=== PATIENT | male | born 1960 ===

== ENCOUNTER 2016-05-10 19:25 | Emergency (ER) | payer MEDICARE, OTHER ==
[2016-05-10 19:26] VITALS: BMI 31.2
[2016-05-10 19:35] VITALS: BP 166/97; PULSE 90; RESP 16; TEMP 97.9; O2SAT 98
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
== END 2016-05-10 19:49 | disposition home or self-care (01) ==
LOC: ED 19:25
DX: H92.02 Otalgia, left ear (principal); H93.12 Tinnitus, left ear

== ENCOUNTER 2016-07-23 22:54 | Emergency (ER) | payer MEDICARE, OTHER ==
[2016-07-23 22:55] VITALS: BMI 31.2
[2016-07-23 23:09] VITALS: BP 154/78; TEMP 99.1
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
[2016-07-24 00:02] VITALS: PULSE 105; RESP 18; O2SAT 96
== END 2016-07-23 23:58 | disposition left against medical advice (07) ==
LOC: ED 22:54
DX: R13.10 Dysphagia, unspecified (principal); Z85.818 Personal history of malignant neoplasm of other sites of lip, oral cavity, and pharynx

== ENCOUNTER 2016-08-28 14:31 | Emergency (ER) | payer MEDICARE, OTHER ==
[2016-08-28 14:32] VITALS: BMI 31.2
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
[2016-08-28] MEDS ORDERED: Magnesium Citrate Oral SOL (300 ml) PO ONE (16:37)
[2016-08-28 17:12] VITALS: PULSE 75; RESP 20; TEMP 98.1; O2SAT 99
[2016-08-28 17:28] VITALS: BP 163/91
--- NOTE | 2016-08-29 09:08 | RAD ---
HISTORY: constipation COMPARISON: 03/17/2016 abdomen two views [address] add and pelvis 01/01/2015 FINDINGS: BOWEL: Increased diffuse stool retention . No obstruction BONES: Inferior facet hypertrophic arthrosis. Transitional elements suggested thoraco lumbar and and/or lumbosacral level OTHER FINDINGS: 6 mm calcification projects over right lower renal pole. Vague opacities over the the left kidney are indeterminate obscuring stool here , noted bilateral renal urolithiasis on CT. The current 6 mm right renal calcification is faintly perceived on the 03/09/2016 study. It is more difficult to see a similar sized right renal calculus on the CT IMPRESSION: 6 mm right renal calculus lower pole - similar-appearing to 03/09/2016. Left renal urolithiasis not excluded. Confounding overlying stool retention
== END 2016-08-28 17:41 | disposition home or self-care (01) ==
LOC: ED 14:31
DX: K59.00 Constipation, unspecified (principal); I25.10 Atherosclerotic heart disease of native coronary artery without angina pectoris; I10 Essential (primary) hypertension; Z95.5 Presence of coronary angioplasty implant and graft; Z87.891 Personal history of nicotine dependence

== ENCOUNTER 2016-12-12 08:53 | Emergency (ER) | payer MEDICARE, OTHER ==
[2016-12-12 08:58] VITALS: BMI 30.2
[2016-12-12 09:16] VITALS: TEMP 98.6
[2016-12-12] MEDS ORDERED: Lidocaine 5% Patch TD STA (09:49)
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
--- NOTE | 2016-12-12 11:36 | RAD ---
PROCEDURE: Radiographs of the Lumbar Spine. HISTORY: c/o low back pain COMPARISON: Abdomen 08/28/[address] abdomen and pelvis 12/11/2016 FINDINGS: BONES: No fracture. Lumbosacral transitional elements suggested. Inferior lumbar facet hypertrophic arthrosis. No vertebral body fractures. No subluxation. . Possible incomplete closure of the most posterior inferior elements L5 Left hip arthrosis DISC SPACES: Posterior L5-S1 disc space narrowing. OTHER FINDINGS: Atherosclerotic vascular calcifications. A 4 mm calcification projects right lateral to the L2-3 disc space lateral to the lateral transverse process ease. This may represent the prior CT renal calculus- however it is smaller in size than suggested on the abdomen from 08/28/2016. CT the did show bilateral renal calculi. No definitive left renal calculi are seen on this exam. Moderate stool retention in impedes optimal evaluation. Vas deferens calcifications in the pelvis noted. IMPRESSION: No fracture or subluxation. Transitional lumbosacral elements. Inferior facet hypertrophic arthrosis Probable 4 mm right renal calculus - please note the recent CT report
[2016-12-12 11:48] VITALS: BP 163/96; PULSE 85
[2016-12-12 11:49] VITALS: RESP 19; O2SAT 99
== END 2016-12-12 11:49 | disposition home or self-care (01) ==
LOC: ED 08:53
DX: M54.5 Low back pain (principal); I10 Essential (primary) hypertension

== ENCOUNTER 2017-06-02 18:17 | Emergency (ER) | payer OTHER ==
[2017-06-02 18:18] VITALS: BMI 30.2
[2017-06-02 18:31] VITALS: TEMP 97.8
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
[2017-06-02 19:21] VITALS: PULSE 83; RESP 18; O2SAT 99
[2017-06-02 19:53] VITALS: BP 176/103
--- NOTE | 2017-06-03 08:21 | RAD ---
HISTORY: COMPARISON: 04/16/2017. TECHNIQUE: Chest PA and lateral FINDINGS: LINES AND TUBES: None. LUNG AND PLEURA: The lungs are well inflated and clear. HEART AND MEDIASTINUM: The heart is not enlarged. The hilar and mediastinal contours are within normal limits. SKELETAL STRUCTURES: The bony structures are within normal limits for the patient's age. VISUALIZED UPPER ABDOMEN: Normal. OTHER FINDINGS: No radiopaque foreign body. IMPRESSION: No active pulmonary disease.
== END 2017-06-02 20:09 | disposition home or self-care (01) ==
LOC: ED 18:17
DX: R09.89 Other specified symptoms and signs involving the circulatory and respiratory systems (principal); I10 Essential (primary) hypertension; E11.9 Type 2 diabetes mellitus without complications; Z87.891 Personal history of nicotine dependence

== ENCOUNTER 2017-07-08 11:02 | Emergency (ER) | payer OTHER ==
[2017-07-08 11:02] VITALS: BMI 30.2
== END 2017-07-08 11:25 | disposition left against medical advice (07) ==
LOC: ED 11:02
DX: Z02.89 Encounter for other administrative examinations (principal); R09.89 Other specified symptoms and signs involving the circulatory and respiratory systems

== ENCOUNTER 2017-07-18 06:21 | Emergency (ER) | payer OTHER ==
[2017-07-18 06:21] VITALS: BMI 30.2
[2017-07-18] MEDS ORDERED: Sodium Chloride 0.9% 1,000 ML IV STA (07:20)
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
[2017-07-18 08:04] LABS: BASO # 0.02 K/mm3 (0.0-2.0); BASO % 0.2 % (0.0-3.0); EOS # 0.3 (0.0-0.7); EOS % 3.1 % (1.5-5.0); GRAN # 7.49 (1.4-6.5); GRAN % 80.8 % (50.0-68.0); HEMOGLOBIN 11.1 g/dL (14.0-18.0); LYMPH # 0.8 (1.2-3.4); LYMPH % 8.6 % (22.0-35.0); MEAN CELL VOLUME 85.7 fl (80.0-105.0); MEAN CORPUSCULAR HEMOGLOBIN 29.4 pg (25.0-35.0); MEAN CORPUSCULAR HGB CONC 34.4 g/dl (31.0-37.0); MEAN PLATELET VOLUME 10.3 fl (7.0-11.0); MONO # 0.7 (0.1-0.6); MONO % 7.3 % (1.0-6.0); RBC 3.77 10^6/uL (3.5-6.1); RED CELL DISTRIBUTION WIDTH 13.4 % (11.5-14.5); WHITE BLOOD COUNT 9.3 10^3/ul (4.5-11.0)
[2017-07-18 08:05] LABS: URINE BILIRUBIN NEGATIVE (NEGATIVE); URINE BLOOD MODERATE (NEGATIVE); URINE GLUCOSE (UA) 100 mg/dL (NEGATIVE); URINE LEUKOCYTE ESTERASE NEGATIVE Leu/uL (NEGATIVE); URINE PROTEIN >=300 mg/dL (<30 mg/dL); URINE UROBILINOGEN 0.2 E.U./dL (<1 E.U./dL)
[2017-07-18 08:06] LABS: URINE APPEARANCE CLEAR (CLEAR); URINE COLOR YELLOW (YELLOW)
[2017-07-18 08:13] LABS: URINE BACTERIA MANY (NEG); URINE RBC 20 - 25 /hpf (0-2)
[2017-07-18 08:15] LABS: INR 1.16 (0.93-1.08); PARTIAL THROMBOPLASTIN TIME 31.4 Seconds (25.1-36.5); PROTHROMBIN TIME 13.4 SECONDS (9.4-12.5)
--- NOTE | 2017-07-18 08:33 | RAD ---
HISTORY: leg pain COMPARISON: 06/02/2017 FINDINGS: LUNGS: No active pulmonary disease. PLEURA: No significant pleural effusion identified, no pneumothorax apparent. CARDIOVASCULAR: Normal. OSSEOUS STRUCTURES: No significant abnormalities. VISUALIZED UPPER ABDOMEN: Normal. OTHER FINDINGS: None. IMPRESSION: No active disease.
[2017-07-18 08:45] LABS: CALCIUM 8.1 mg/dL (8.4-10.5)
[2017-07-18 09:00] LABS: CK MB% 3.2 % (2.5-3.0); CK-MB 7.6 ng/mL (0.0-3.6)
[2017-07-18 10:02] VITALS: RESP 18
[2017-07-18] MEDS ORDERED: Heparin25000 units/250ml 1/2NS 25,000 UNITS/250 ML BAG IV PRN (11:22)
[2017-07-18 12:04] VITALS: BP 144/89; PULSE 76; TEMP 98; O2SAT 97
--- NOTE | 2017-07-18 14:30 | US ---
HISTORY: Leg pain and swelling. Evaluate for DVT PHYSICIAN(S): Jaime Verma MD. TECHNIQUE: Duplex sonography and color-flow Doppler with graded compression were used to evaluate the deep venous systems of both lower extremities. FINDINGS: There is subacute partially recannulized thrombus noted in the right popliteal vein and visualized right tibial veins. The right femoral vein and right common femoral vein are patent and compressible. There is no sonographic evidence of deep venous thrombosis the visualized segments of left lower extremity. IMPRESSION: Subacute thrombus in the right popliteal and tibial veins.
--- NOTE | 2017-07-18 23:42 | CARD ---
APPROVED REPORT EKG Measurement Heart [id number] <Conclusion> Normal sinus rhythm Right bundle branch block Inferior infarct, age undetermined Abnormal ECG
== END 2017-07-18 12:04 | disposition home or self-care (01) ==
LOC: ED 06:21
DX: I82.431 Acute embolism and thrombosis of right popliteal vein (principal); I82.441 Acute embolism and thrombosis of right tibial vein; I10 Essential (primary) hypertension; E11.9 Type 2 diabetes mellitus without complications; Z87.891 Personal history of nicotine dependence
CPT/HCPCS: 71045; 80053; 81001; 82550; 82553; 83880; 85025; 85610; 85651; 85730; 86140; 87040; 87086; 93005; 93970; 96361; 96374; 99285; J1885; J7030

== ENCOUNTER 2017-08-07 08:18 | Emergency (ER) | payer MEDICARE ==
[2017-08-07 08:23] VITALS: BMI 30.7
[2017-08-07 08:34] VITALS: RESP 18; TEMP 98.2
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
[2017-08-07] MEDS ORDERED: Nitroglycerin 2% Ointment Foilpak UD TOP STA (08:41)
[2017-08-07 08:53] LABS: BASO # 0.04 K/mm3 (0.0-2.0); BASO % 0.4 % (0.0-3.0); EOS # 0.6 (0.0-0.7); EOS % 5.6 % (1.5-5.0); GRAN # 7.05 (1.4-6.5); GRAN % 71.8 % (50.0-68.0); HEMOGLOBIN 11.3 g/dL (14.0-18.0); LYMPH # 1.5 (1.2-3.4); LYMPH % 15.6 % (22.0-35.0); MEAN CELL VOLUME 85.3 fl (80.0-105.0); MONO # 0.7 (0.1-0.6); MONO % 6.6 % (1.0-6.0); RBC 3.89 10^6/uL (3.5-6.1); RED CELL DISTRIBUTION WIDTH 14.2 % (11.5-14.5); WHITE BLOOD COUNT 9.8 10^3/ul (4.5-11.0)
[2017-08-07 09:09] LABS: ALB/GLOB RATIO 1.1 (1.1-1.8); ALBUMIN 3.5 g/dL (3.0-4.8); CALCIUM 8.7 mg/dL (8.4-10.5); INR 1.92 (0.93-1.08); PROTHROMBIN TIME 22.4 SECONDS (9.4-12.5)
[2017-08-07 09:15] LABS: TROPONIN I 0.05 ng/mL
--- NOTE | 2017-08-07 09:40 | CT ---
PROCEDURE: CT HEAD WITHOUT CONTRAST. HISTORY: right facial droop x 2.5-3days COMPARISON: None available. TECHNIQUE: Axial computed tomography images were obtained through the head/brain without intravenous contrast. Radiation dose: Total exam DLP = mGy-cm. This CT exam was performed using one or more of the following dose reduction techniques: Automated exposure control, adjustment of the mA and/or kV according to patient size, and/or use of iterative reconstruction technique. FINDINGS: HEMORRHAGE: No intracranial hemorrhage. BRAIN: No mass effect or edema. Right frontal encephalomalacia. Right periventricular white matter and basal ganglia chronic ischemic changes. VENTRICLES: Unremarkable. No hydrocephalus. CALVARIUM: Unremarkable. PARANASAL SINUSES: Unremarkable as visualized. No significant inflammatory changes. MASTOID AIR CELLS: Unremarkable as visualized. No inflammatory changes. OTHER FINDINGS: None. IMPRESSION: No intracranial hemorrhage.
--- NOTE | 2017-08-07 10:11 | RAD ---
HISTORY: right facial droop x 2.5-3 days COMPARISON: 07/29/2017 FINDINGS: LUNGS: No active pulmonary disease. PLEURA: No significant pleural effusion identified, no pneumothorax apparent. CARDIOVASCULAR: Normal. OSSEOUS STRUCTURES: No significant abnormalities. VISUALIZED UPPER ABDOMEN: Normal. OTHER FINDINGS: None. IMPRESSION: No active disease.
--- NOTE | 2017-08-07 10:19 | US ---
HISTORY: Leg pain and swelling. Evaluate for DVT PHYSICIAN(S): Jaime Verma MD. TECHNIQUE: Duplex sonography and color-flow Doppler with graded compression were used to evaluate the deep venous systems of both lower extremities. FINDINGS: The visualized deep venous systems of both lower extremities are sonographically normal and compressible. Normal wave forms and augmentation are seen. There is no sonographic evidence for deep venous thrombosis in the visualized segments of both lower extremities. IMPRESSION: No sonographic evidence for deep venous thrombosis in the visualized segments of both lower extremities.
[2017-08-07 11:24] VITALS: BP 152/88; PULSE 77; O2SAT 98
--- NOTE | 2017-08-07 12:34 | CARD ---
APPROVED REPORT EKG Measurement Heart [id number] <Conclusion> Normal sinus rhythm Right bundle branch block Inferior infarct Age Old?
== END 2017-08-07 11:23 | disposition home or self-care (01) ==
LOC: ED 08:18
DX: G51.0 Bell's palsy (principal); I10 Essential (primary) hypertension; E11.9 Type 2 diabetes mellitus without complications; Z87.891 Personal history of nicotine dependence; Z91.81 History of falling

== ENCOUNTER 2017-08-22 13:11 | Inpatient (IN) | payer MEDICAID, MEDICARE, OTHER ==
[2017-08-22 13:12] VITALS: BMI 30.7
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
--- NOTE | 2017-08-22 14:52 | RAD ---
HISTORY: leukocytosis COMPARISON: 08/07/2017. FINDINGS: LUNGS: The lungs are well inflated and clear. PLEURA: No significant pleural effusion identified, no pneumothorax apparent. CARDIOVASCULAR: Normal. OSSEOUS STRUCTURES: No significant abnormalities. VISUALIZED UPPER ABDOMEN: Normal. OTHER FINDINGS: None. IMPRESSION: No active pulmonary disease.
[2017-08-22 15:46] LABS: VENOUS BLOOD GAS PO2 88 mm/Hg (30-55); VENOUS BLOOD PH 7.29 (7.32-7.43)
[2017-08-22 15:48] LABS: GRAN # 18.32 (1.4-6.5); GRAN % 90.4 % (50.0-68.0); HEMOGLOBIN 10.6 g/dL (14.0-18.0); LYMPH # 1.4 (1.2-3.4); LYMPH % 6.8 % (22.0-35.0); MEAN CELL VOLUME 84.1 fl (80.0-105.0); MEAN CORPUSCULAR HEMOGLOBIN 29.5 pg (25.0-35.0); MEAN CORPUSCULAR HGB CONC 35.1 g/dl (31.0-37.0); MONO # 0.6 (0.1-0.6); MONO % 2.8 % (1.0-6.0); PLATELET COUNT 236 10^3/uL (120.0-450.0); RBC 3.59 10^6/uL (3.5-6.1); RED CELL DISTRIBUTION WIDTH 15.4 % (11.5-14.5); WHITE BLOOD COUNT 20.3 10^3/ul (4.5-11.0)
[2017-08-22 15:54] LABS: URINE BILIRUBIN NEGATIVE (NEGATIVE); URINE BLOOD MODERATE (NEGATIVE); URINE GLUCOSE (UA) >=1000 mg/dL (NEGATIVE); URINE LEUKOCYTE ESTERASE NEGATIVE Leu/uL (NEGATIVE); URINE PROTEIN >=300 mg/dL (<30 mg/dL); URINE UROBILINOGEN 0.2 E.U./dL (<1 E.U./dL)
[2017-08-22 15:55] LABS: URINE APPEARANCE TURBID (CLEAR); URINE COLOR YELLOW (YELLOW)
[2017-08-22 15:59] LABS: URINE RBC 0 - 2 /hpf (0-2)
[2017-08-22 16:00] LABS: URINE BACTERIA TRACE (NEG); URINE HYALINE CAST 0 - 2 /hpf
[2017-08-22 16:01] LABS: INR 1.29 (0.93-1.08); PARTIAL THROMBOPLASTIN TIME 30.7 Seconds (25.1-36.5); PROTHROMBIN TIME 14.8 SECONDS (9.4-12.5)
[2017-08-22 16:05] LABS: ALB/GLOB RATIO 1.1 (1.1-1.8); ALBUMIN 2.8 g/dL (3.0-4.8); CALCIUM 8.6 mg/dL (8.4-10.5)
[2017-08-22 16:16] LABS: LYMPHOCYTE 3 % (22.0-35.0); MONOCYTE 5 % (1.0-6.0); NEUTROPHIL 92 % (50.0-70.0)
[2017-08-22 16:17] LABS: PLATELET ESTIMATE NORMAL (NORMAL)
[2017-08-22] MEDS ORDERED: Insulin Lispro 1 UNITS/0.01 ML SC STA (16:53)
[2017-08-22] MEDS ORDERED: Sodium Chloride 0.9% 1,000 ML IV SCH (20:00)
[2017-08-22] MEDS ORDERED: Dextrose 50% SYRINGE Inj (50 ml) IVP ONE (20:28)
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
[2017-08-22] MEDS ORDERED: Pneumococcal 23-Valent Vaccine IM ONE (22:48)
[2017-08-22] MEDS: Insulin Reg-MEDIUM-Coverage SC SCH (23:38)
[2017-08-22] MEDS: Piperacillin/Tazobact 2.25gm 2.25 GM/100 ML BAG IVPB SCH (23:54)
[2017-08-23] MEDS ORDERED: Piperacillin/Tazobact 3.375 gm 100 ML IVPB SCH
[2017-08-23] MEDS: Piperacillin/Tazobact 2.25gm 2.25 GM/100 ML BAG IVPB SCH ×4 (05:21→23:53)
[2017-08-23] MEDS: Pantoprazole 40 mg EC Tab PO SCH (05:22)
[2017-08-23 05:47] LABS: ARTERIAL BLOOD GAS HCO3 18.8 mmol/L (21-28); ARTERIAL BLOOD GAS HEMOGLOBIN 10.4 g/dL (11.7-17.4); ARTERIAL BLOOD GAS O2 CAPACITY 14.3 mL/dl (16-24); ARTERIAL BLOOD GAS O2 CONTENT 14.1 ML/dl (15-23); ARTERIAL BLOOD GAS O2 SAT 98.7 % (95-98); ARTERIAL BLOOD GAS PCO2 31 mm/Hg (35-45); ARTERIAL BLOOD GAS PH 7.39 (7.35-7.45); ARTERIAL BLOOD GAS TCO2 19.8 mmol.L (22-28)
[2017-08-23 06:34] LABS: EOS # 0.1 (0.0-0.7); EOS % 0.6 % (1.5-5.0); GRAN # 14.4 (1.4-6.5); GRAN % 86.2 % (50.0-68.0); HEMOGLOBIN 10.3 g/dL (14.0-18.0); LYMPH # 1.1 (1.2-3.4); LYMPH % 6.8 % (22.0-35.0); MEAN CELL VOLUME 84.2 fl (80.0-105.0); MEAN CORPUSCULAR HEMOGLOBIN 28.5 pg (25.0-35.0); MEAN CORPUSCULAR HGB CONC 33.9 g/dl (31.0-37.0); MEAN PLATELET VOLUME 10.5 fl (7.0-11.0); MONO # 1.1 (0.1-0.6); MONO % 6.4 % (1.0-6.0); RBC 3.61 10^6/uL (3.5-6.1); RED CELL DISTRIBUTION WIDTH 15.7 % (11.5-14.5); WHITE BLOOD COUNT 16.7 10^3/ul (4.5-11.0)
[2017-08-23 06:38] LABS: IRON 16 ug/dL (45-180)
[2017-08-23 06:40] LABS: ALBUMIN 2.5 g/dL (3.0-4.8); CALCIUM 8.5 mg/dL (8.4-10.5)
[2017-08-23 06:48] LABS: % IRON SATURATION 9 % (20-55); TOTAL IRON BINDING CAPACITY 170 ug/dL (261-462)
[2017-08-23] MEDS ORDERED: Barium Sulfate Susp 2.1% w/v, 2.0% w/w 450 mL Bottle PO ONE (06:58)
--- NOTE | 2017-08-23 09:03 | CARD ---
APPROVED REPORT EKG Measurement Heart [id number] [place] [id number] <Conclusion> Normal sinus rhythm Right bundle branch block Voltage criteria for left ventricular hypertrophy Inferior infarct, age undetermined No change
[2017-08-23] MEDS: Insulin Reg-MEDIUM-Coverage SC SCH ×4 (09:19→22:16)
--- NOTE | 2017-08-23 09:24 | CT ---
PROCEDURE: CT MAXILLOFACIAL BONES WITHOUT CONTRAST HISTORY: Hx of nasopharyngeal CA COMPARISON: None TECHNIQUE: Contiguous axial CT images of the maxillofacial bones were obtained. Coronal and sagittal reformats were generated. Radiation dose: Total exam DLP = 745.23 mGy-cm. This CT exam was performed using one or more of the following dose reduction techniques: Automated exposure control, adjustment of the mA and/or kV according to patient size, and/or use of iterative reconstruction technique. FINDINGS: NASAL BONES: Unremarkable. ORBITS: Probable old right lamina papyracea fracture. No evidence of acute fracture. Orbital floor intact bilaterally. No orbital mass or hemorrhage. The globes are rounded and symmetric. PARANASAL SINUSES/ MASTOIDS: Chronic left maxillary sinus. Right maxillary retention cyst/polyp. Chronic sphenoid sinusitis. MAXILLA: Unremarkable. MANDIBLE/ TEMPOROMANDIBULAR JOINTS: Unremarkable. SKULL BASE: Unremarkable. TEMPORAL BONES: Middle ears and mastoid grossly unremarkable. OTHER FINDINGS: Asymmetric soft tissue in the left fossa of Rosenmuller suspicious for nasopharyngeal malignancy. IMPRESSION: Asymmetric soft tissue in left fossa of Rosenmuller suspicious for nasopharyngeal malignancy. Old right lamina papyracea fracture. Right maxillary retention cyst/polyp. Chronic maxillary and sphenoid sinusitis. Preliminary interpretation of this examination was reported by [facility] at 7:50 p.m. on 08/22/2017.. There is discordance of this report with the preliminary interpretation. Asymmetric soft tissue in left fossa of Rosenmuller not described in the preliminary report of this examination.
[2017-08-23] MEDS ORDERED: Vancomycin 1gm in NS 250ml 1 GM/250 ML BAG IVPB SCH (10:00)
--- NOTE | 2017-08-23 11:24 | CT ---
PROCEDURE: CT Abdomen and Pelvis without intravenous contrast HISTORY: wbc 20k COMPARISON: None. TECHNIQUE: Technique. Contrast dose: Radiation dose: Total exam DLP = mGy-cm. This CT exam was performed using one or more of the following dose reduction techniques: Automated exposure control, adjustment of the mA and/or kV according to patient size, and/or use of iterative reconstruction technique. FINDINGS: LOWER THORAX: Small pericardial effusion. LIVER: Unremarkable. No gross lesion or ductal dilatation. GALLBLADDER AND BILE DUCTS: Unremarkable. PANCREAS: Peripancreatic fat infiltration along the head consistent with mild acute pancreatitis. SPLEEN: Unremarkable. ADRENALS: Unremarkable. No mass. KIDNEYS AND URETERS: Tiny bilateral nonobstructive renal calculi. VASCULATURE: Unremarkable. No aortic aneurysm. BOWEL: Mild colonic diverticulosis. No obstruction. No gross mural thickening. APPENDIX: Unremarkable. Normal appendix. PERITONEUM: Unremarkable. No free fluid. No free air. LYMPH NODES: Unremarkable. No enlarged lymph nodes. BLADDER: Unremarkable. REPRODUCTIVE: Unremarkable. BONES: No acute fracture. OTHER FINDINGS: None. IMPRESSION: Peripancreatic fat infiltration along the head consistent with mild acute pancreatitis.
[2017-08-23 11:46] LABS: CK MB% 3.8 % (2.5-3.0); CK-MB 11.1 ng/mL (0.0-3.6)
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
--- NOTE | 2017-08-23 16:32 | CP.PCM.PN ---
<John Moore - Last Filed: 08/23/17 17:49> Subjective - Date & Time of Evaluation Date of Evaluation: 08/23/17 Time of Evaluation: 07:10 - Subjective Subjective: John Moore D.O. 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 Patient was seen and examined this morning at bedside. Patient is doing marginally better and is complaining that he really wants to eat something. No major overnight events. Objective - Vital Signs/Intake and Output Vital Signs (last 24 hours): Temp Pulse Resp BP Pulse Ox 98.2 F 90 20 133/73 97 08/23/17 08:32 08/23/17 08:32 08/23/17 08:32 08/23/17 08:32 08/23/17 08:32 Intake and Output: 08/23/17 08/23/17 06:59 18:59 Intake Total 0 Balance 0 - Medications Medications: Current Medications Atorvastatin Calcium (Lipitor) 10 mg PO DIN [facility] Escitalopram Oxalate (Lexapro) 20 mg PO DAILY [facility] Last Admin: 08/23/17 09:21 Dose: Not Given Ferrous Gluconate (Fergon) 324 mg PO TID [facility] Hydralazine HCl (Apresoline) 10 mg IVP Q6 PRN PRN Reason: Systolic Blood Pressure Last Admin: 08/22/17 20:46 Dose: 10 mg Hydralazine HCl (Apresoline) 50 mg PO BID [facility] Piperacillin Sod/Tazobactam Sod (Zosyn 2.25 Gm In 0.9% 100 Ml) 2.25 gm in 100 mls @ 100 mls/hr IVPB Q6 [facility] PRN Reason: Protocol Stop: 09/01/17 00:01 Last Admin: 08/23/17 12:11 Dose: 100 mls/hr Insulin Human Regular (Humulin R Med) 0 units SC ACHS [facility] PRN Reason: Protocol Last Admin: 08/23/17 11:40 Dose: Not Given Loratadine (Claritin) 10 mg PO DAILY [facility] Last Admin: 08/23/17 09:20 Dose: Not Given Pantoprazole Sodium (Protonix Ec Tab) 40 mg PO 0600 [facility] Last Admin: 08/23/17 05:22 Dose: Not Given Vitamin B Complex/Vit C/Folic Acid (Nephro-Nicko) 1 tab PO 0800 [facility] - Labs Labs: 08/23/17 06:00 08/23/17 06:00 PT 14.8 SECONDS (9.4-12.5) H 08/22/17 15:00 INR 1.29 (0.93-1.08) H 08/22/17 15:00 APTT 30.7 Seconds (25.1-36.5) 08/22/17 15:00 - Constitutional Appears: gentleman, well, No Acute Distress - Head Exam Head Exam: NORMOCEPHALIC, previous craniotomy scars appreciated, well healed - Eye Exam Eye Exam: EOMI, PERRL. absent: Scleral icterus - ENT Exam ENT Exam: Mucous Membranes Moist Additional comments: Lesion on are of L nostril with some crusted blood, some erythema over nares, oral thrush - Neck Exam Neck exam: Negative for: Tenderness - Respiratory Exam Respiratory Exam: Clear to Auscultation Bilateral. absent: Rhonchi, Wheezes - Cardiovascular Exam Cardiovascular Exam: RRR, +S1, +S2. absent: Systolic Murmur - GI/Abdominal Exam GI & Abdominal Exam: Normal Bowel Sounds, Soft. absent: Tenderness - Extremities Exam Extremities exam: Positive for: normal inspection, pedal pulses present. 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 Plan: Leukocytosis w/ L Shift Pt. noted to have leukocytosis in outpt heme onc office PNA: Procal 0.78; CXR negative UTI: UA negative for pyuria/ bacteruria; UCX negative after 24 hours Blood Cx 2/2 negative after [address] hours. LE Duplex negative CT Maxofacial - chronic sinusitis Continue empiric zosyn ID following; reccs appreciated Uncontrolled DM Suspect likely 2/2 prednisone use Holding home prednisone taper ISS Medium dose A1C 8.9 Normocytic Anemia - Iron deficiency Suspect Anemia of chronic disease vs. Chronic Kidney Disease Pt. 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 Pt is to follow up w/ PMD Dr. Rebolledo and Heme Onc Dr. Corona once discharged. Case was seen and discussed w/ attending Dr. Alfredo. John Moore DO - PGY1 IM RESIDENT - PAG[facility] [phone] <Dilan Alfredo - Last Filed: 08/24/17 08:21> Objective - Vital Signs/Intake and Output Vital Signs (last 24 hours): Temp Pulse Resp BP Pulse Ox 97.7 F 82 20 183/96 H 99 08/24/17 06:00 08/24/17 06:00 08/24/17 06:00 08/24/17 06:00 08/24/17 06:00 Intake and Output: 08/24/17 08/24/17 06:59 18:59 Intake Total 0 Balance 0 - Medications Medications: Current Medications Atorvastatin Calcium (Lipitor) 10 mg PO DIN [facility] Last Admin: 08/23/17 17:21 Dose: 10 mg Escitalopram Oxalate (Lexapro) 20 mg PO DAILY [facility] Last Admin: 08/23/17 09:21 Dose: Not Given Ferrous Gluconate (Fergon) 324 mg PO TID [facility] Last Admin: 08/23/17 17:22 Dose: 324 mg Hydralazine HCl (Apresoline) 10 mg IVP Q6 PRN PRN Reason: Systolic Blood Pressure Last Admin: 08/24/17 05:58 Dose: 10 mg Hydralazine HCl (Apresoline) 50 mg PO BID [facility] Last Admin: 08/23/17 17:20 Dose: 50 mg Piperacillin Sod/Tazobactam Sod (Zosyn 2.25 Gm In 0.9% 100 Ml) 2.25 gm in 100 mls @ 100 mls/hr IVPB Q6 [facility] PRN Reason: Protocol Stop: 09/01/17 00:01 Last Admin: 08/24/17 05:55 Dose: 100 mls/hr Insulin Human Regular (Humulin R Med) 0 units SC ACHS [facility] PRN Reason: Protocol Last Admin: 08/24/17 08:04 Dose: Not Given Loratadine (Claritin) 10 mg PO DAILY [facility] Last Admin: 08/23/17 09:20 Dose: Not Given Pantoprazole Sodium (Protonix Ec Tab) 40 mg PO 0600 [facility] Last Admin: 08/24/17 05:56 Dose: 40 mg Vitamin B Complex/Vit C/Folic Acid (Nephro-Nicko) 1 tab PO 0800 [facility] - Labs Labs: 08/23/17 06:00 08/23/17 06:00 PT 14.8 SECONDS (9.4-12.5) H 08/22/17 15:00 INR 1.29 (0.93-1.08) H 08/22/17 15:00 APTT 30.7 Seconds (25.1-36.5) 08/22/17 15:00 Attending/Attestation - Attestation I have personally seen and examined this patient.: Yes I have fully participated in the care of the patient.: Yes I have reviewed all pertinent clinical information, including history, physical exam and plan: Yes Notes (Text): 08/23/17 57 year old male with past medical history of nasopharyngeal cancer s/p radiation, hypertension, CAD s/p stents, DVT, diabetes, CKD and recently diagnosed Chowdhury's palsy who presented after being referred by his oncologist for leukocytosis and hyperglycemia. Of note patient was recently started on prednisone and valcyclovir for Chowdhury's palsy. In ER patient has leukocytosis ( 20.3), hyperglycemia and acute on chronic renal failure. On exam he does appear to have mild erythema on his face which has improved today. CT maxofacial showed chronic sinusitis. Continue with iv antibiotics as per ID. CT abd/pelvis showed mild acute pancreatitis however patient denies any abdominal pain. Continue with diet as tolerated. LE dopplers were negative. Will need to discuss her patient's oncologist regarding anticoagulation. Nephrology evaluation was appreciated. Continue to hold lasix, januvia and lisinopril for now. Continue with insulin ss. PT evaluation was appreciated; recommended home with services. Family is at bedside and questions were answered. Dilan Alfredo MD Hospitalist.
[2017-08-23 17:10] LABS: COMPLEMENT C4 22.6 mg/dL (14.0-44.0)
[2017-08-24] MEDS: Piperacillin/Tazobact 2.25gm 2.25 GM/100 ML BAG IVPB SCH (05:55)
[2017-08-24] MEDS: Pantoprazole 40 mg EC Tab PO SCH (05:56)
--- NOTE | 2017-08-24 07:37 | CON ---
DATE: 08/23/2017 LOCATION: The patient is in bed, seen earlier this morning in room 370, bed 1. CHIEF COMPLAINT: Weakness and actually elevated white blood cell count times several days. HISTORY OF PRESENT ILLNESS: This is a 57-year-old male with a history of diabetes, coronary artery disease, depression, hypertension, hyperlipidemia, nasopharyngeal cancer, has had chemotherapy and radiation, history of anxiety, and was admitted with leukocytosis and hyperglycemia. REVIEW OF SYSTEMS: Reveals the patient denies any fevers, any chills, any nausea, vomiting, chest pain, abdominal pain or diarrhea. PAST MEDICAL HISTORY: Significant for diabetes mellitus, coronary artery disease, depression, hypertension, hyperlipidemia, nasopharyngeal cancer and anxiety. PAST SURGICAL HISTORY: Significant for cardiac stents. ALLERGIES: THE PATIENT HAS NO KNOWN ALLERGIES. MEDICATIONS AT HOME: Include prednisone, meloxicam, lisinopril, glimepiride, furosemide. PHYSICAL EXAMINATION: GENERAL: The patient is in bed, in no acute distress, answering questions appropriately. VITAL SIGNS: Temperature of 98, blood pressure is 167/90, respiratory rate of 20, and a heart rate of 92. HEENT: Unremarkable. NECK: Supple. LUNGS: Have decreased breath sounds. HEART: Normal S1 and S2. ABDOMEN: Soft, nontender. No rebound or guarding. No masses. LABORATORY DATA: Reveals a white count of 16,700, hemoglobin of 10, platelets of 236, 92% neutrophils. Coagulation is noted. Chemistries reveals a BUN of 64, creatinine of 2. Procalcitonin is 0.78. Urinalysis is noted. Immunology is noted. Microbiology, blood cultures, no growth. Urine cultures, no growth. The patient had a CAT scan of the abdomen and pelvis, which shows mild acute pancreatitis. Chest x-ray, negative. Urinalysis is negative. ASSESSMENT AND PLAN: This is a 57-year-old male with diabetes and coronary artery disease, depression, hypertension, hyperlipidemia, nasopharyngeal cancer status post chemotherapy and radiation, anxiety with leukocytosis, and systemic inflammatory response syndrome. The patient's leukocytosis maybe secondary to 20 mg of prednisone daily the patient has been on. The patient does have hyperglycemia with a negative CAT scan of the abdomen, negative chest x-ray, negative urinalysis, negative urine culture and negative blood cultures, and procalcitonin is 0.78. We will follow white blood cell count. We will make further recommendations. Jr Gagnon MD
[2017-08-24] MEDS: Insulin Reg-MEDIUM-Coverage SC SCH ×4 (08:04→21:59)
[2017-08-24] MEDS: Multivitamin Vitamin B Complex (Nephro-Vite) Tab PO SCH (09:40)
[2017-08-24 10:03] LABS: EOS # 0.3 (0.0-0.7); GRAN # 11.29 (1.4-6.5); GRAN % 86.4 % (50.0-68.0); HEMOGLOBIN 10.9 g/dL (14.0-18.0); LYMPH % 7.4 % (22.0-35.0); MEAN CELL VOLUME 85.4 fl (80.0-105.0); MEAN CORPUSCULAR HEMOGLOBIN 28.9 pg (25.0-35.0); MEAN CORPUSCULAR HGB CONC 33.9 g/dl (31.0-37.0); MONO # 0.6 (0.1-0.6); MONO % 4.2 % (1.0-6.0); RBC 3.77 10^6/uL (3.5-6.1); RED CELL DISTRIBUTION WIDTH 16.3 % (11.5-14.5); WHITE BLOOD COUNT 13.1 10^3/ul (4.5-11.0)
[2017-08-24 10:04] LABS: ALB/GLOB RATIO 1.1 (1.1-1.8); ALBUMIN 2.8 g/dL (3.0-4.8); ALT/SGPT 47 U/L (7-56); AST/SGOT 34 U/L (17-59); BLOOD UREA NITROGEN 60 mg/dL (7-21); CALCIUM 8.4 mg/dL (8.4-10.5); GFR AFRICAN-AMERICAN 40; GFR NON-AFRICAN AMERICAN 33
--- NOTE | 2017-08-24 10:38 | CP.PCM.PN ---
Subjective - Date & Time of Evaluation Date of Evaluation: 08/24/17 Time of Evaluation: 10:37 - Subjective Subjective: Nephrology Consultation Note (covering for Dr Stacy Moore): Assessment: Stable Acute Kidney Injury (N17.9) likely hemodynamic due to hyperglycemia, probably also contributed by meds such as nsaids + diuretics + acei microscopic hematuria Diabetic chronic Kidney Disease (E11.22) Hypertensive Chronic Kidney Disease (I12.9) Chronic Kidney Disease (N18.3) Stage 3 with 3+ ( ? 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 Hypertension control with meds as ordered. resume lisinopil and added norvasc Monitor Input/Output, daily weights and renal function with basic metabolic panel d/c IVF as pt with elevated BP and edema started iron and MVI supplements Check urine analysis, spot protein/creatinine and albumin/creatinine ratio, CPK , uric acid. Check for 25-OH vitamin D, iPTH, phosphorus level Check GN work up as C3, C4, BLAIRE, Anti dsDNA, ANCA (MPO and [place]-3), serum protein electrophoresis with immunofixation and serum FLC assay, HIV/Hep B and Hep C serology Dose meds/antibiotics for reduced GFR. Avoid fleets enema/magnesium based laxatives. Avoid nephrotoxins/NSAIDs/ iodinated contrast (unless needed emergently) Glycemic control Further work up/management as per primary team Thanks for allowing me to participate in care of your patient. Will follow patient with you. Please call if any Qs. 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 pt also had a fall few days ago. he feels cold at this time. denies CP/SOB Denies OTC/herbal meds or NSAIDs but home meds list include Meloxicam No known recent iodinated contrast exposure. No obvious episodes of low BP. ROS: Cardiovascular: No chest pain. Pulmonary: No shortness of breath Gastrointestinal: denies abdominal pain No nausea. No vomiting. Genitourinary: No pain while urinating. Denies blood in urine. All other negative Physical Examination: General Appearance: Comfortable, in no acute respiratory distress, co-operative . ill appearing Vitals reviewed and noted as below Head; Atraumatic, normocephalic. Rt scalp old surgical scar + ENT: no thrush. Tongue is midline. Oropharynx: no rash or ulcers. left nostril ulcer + EYES: Pupils are equal, round and reactive to light accommodation. Eye muscles and extraocular movement intact. Sclera is anicteric. Neck; supple no lymphadenopathy, no thyromegaly or bruit Lungs: Normal respiratory rate/effort. Breath sounds bilateral equal and clear Heart: Normal rate. s1s2 normal. No rub or gallop. Extremities: 1-2+ edema. No varicose veins Neurological: Patient is alert, awake and oriented to person, place and time. left bells palsy +. Strength bilateral appropriate and equal Skin: Warm and dry. Normal turgor. No rash. Palpitation: Normal elasticity for age Abdomen: Abdomen is soft. Bowel sounds +. There is no abdominal tenderness, no guarding/rigidity no organomegaly Psych: limited insight and normal affect/mood MSK: no joint tenderness or swelling. Digits and nails normal, no deformity : kidney or bladder not palpable Labs/imaging reviewed. Past medical history, past surgical history, family history, social history, allergy reviewed and noted as below Family hx: no hx of CKD. Rest non-contributory work up: UA: 3+ protein moderate blood TSAT 9% ferritin 303 renal imaging: b/l non obstructing calculi Objective - Vital Signs/Intake and Output Vital Signs (last 24 hours): Temp Pulse Resp BP Pulse Ox 97.7 F 82 20 183/96 H 99 08/24/17 06:00 08/24/17 06:00 08/24/17 06:00 08/24/17 06:00 08/24/17 06:00 Intake and Output: 08/24/17 08/24/17 06:59 18:59 Intake Total 0 Balance 0 - Medications Medications: Current Medications Amlodipine Besylate (Norvasc) 5 mg PO DAILY [facility] Last Admin: 08/24/17 09:43 Dose: 5 mg Atorvastatin Calcium (Lipitor) 10 mg PO DIN [facility] Last Admin: 08/23/17 17:21 Dose: 10 mg Escitalopram Oxalate (Lexapro) 20 mg PO DAILY [facility] Last Admin: 08/24/17 09:40 Dose: 20 mg Ferrous Gluconate (Fergon) 324 mg PO TID [facility] Last Admin: 08/24/17 09:41 Dose: 324 mg Hydralazine HCl (Apresoline) 10 mg IVP Q6 PRN PRN Reason: Systolic Blood Pressure Last Admin: 08/24/17 05:58 Dose: 10 mg Hydralazine HCl (Apresoline) 50 mg PO BID [facility] Last Admin: 08/24/17 09:41 Dose: 50 mg Insulin Human Regular (Humulin R Med) 0 units SC [facility] PRN Reason: Protocol Last Admin: 08/24/17 08:04 Dose: Not Given Lisinopril (Zestril) 20 mg PO DAILY [facility] Last Admin: 08/24/17 09:43 Dose: 20 mg Loratadine (Claritin) 10 mg PO DAILY [facility] Last Admin: 08/24/17 09:41 Dose: 10 mg Pantoprazole Sodium (Protonix Ec Tab) 40 mg PO 0600 [facility] Last Admin: 08/24/17 05:56 Dose: 40 mg Vitamin B Complex/Vit C/Folic Acid (Nephro-Nicko) 1 tab PO 0800 [facility] Last Admin: 08/24/17 09:40 Dose: 1 tab - Labs Labs: 08/24/17 09:30 08/24/17 09:30 PT 14.8 SECONDS (9.4-12.5) H 08/22/17 15:00 INR 1.29 (0.93-1.08) H 08/22/17 15:00 APTT 30.7 Seconds (25.1-36.5) 08/22/17 15:00
--- NOTE | 2017-08-24 11:06 | PN ---
DATE: 08/24/2017 SUBJECTIVE: The patient is in bed, in no acute distress, nontoxic, seen earlier. PHYSICAL EXAMINATION: VITAL SIGNS: On exam, temperature is 97 and blood pressure is 180/90, respiratory rate of 20, heart rate of 96. HEENT: Examination of HEENT is unremarkable. NECK: Supple. LUNGS: Have decreased breath sounds. HEART: Normal S1, S2. ABDOMEN: Soft, nontender. LABORATORY DATA: Laboratory examination reveals the white count is down to 16,700, hemoglobin of 10 and coagulation is noted and chemistries revealed the patient has a BUN of 64, creatinine of 2. CK is elevated. Procalcitonin is 0.78. Blood sugar is elevated. Hemoglobin A1c is 8.9. Urinalysis is noted. HIV is negative. Microbiology reveals blood cultures are negative. Urine cultures are negative. The patient had a CAT scan of the abdomen and pelvis. Peripancreatic fat infiltration consistent with a mild acute pancreatitis. No other findings. ASSESSMENT AND PLAN: A 57-year-old male, who was admitted with diabetes and coronary artery disease, depression, hypertension, hyperlipidemia, nasopharyngeal cancer, status post chemotherapy and radiation and anxiety. Had systemic inflammatory response syndrome, leukocytosis, maybe secondary to prednisone 20 mg daily. The patient with hyperglycemia with negative CAT scan of the abdomen, negative chest x-ray, negative urinalysis, negative urine and blood cultures. The patient does have renal insufficiency, has elevated procalcitonin. No evidence of infection. We will be discontinuing the Zosyn. No need for any antibiotics at this point. Awaiting for today's CBC. Jr Gagnon MD
--- NOTE | 2017-08-24 13:29 | CP.PCM.PN ---
<Alberto Coleman - Last Filed: 08/25/17 05:51> Subjective - Date & Time of Evaluation Date of Evaluation: 08/24/17 Time of Evaluation: 10:15 - Subjective Subjective: Pt seen and examined at bedside. Pt observed seated in chair oob, denies any acute complaints. States the swelling on his face is improving. No acute events reported overnight. Objective - Vital Signs/Intake and Output Vital Signs (last 24 hours): Temp Pulse Resp BP Pulse Ox 97.7 F 82 20 183/96 H 99 08/24/17 06:00 08/24/17 06:00 08/24/17 06:00 08/24/17 06:00 08/24/17 06:00 Intake and Output: 08/24/17 08/24/17 06:59 18:59 Intake Total 0 Balance 0 - Medications Medications: Current Medications Amlodipine Besylate (Norvasc) 5 mg PO DAILY [facility] Last Admin: 08/24/17 09:43 Dose: 5 mg Atorvastatin Calcium (Lipitor) 10 mg PO DIN [facility] Last Admin: 08/23/17 17:21 Dose: 10 mg Escitalopram Oxalate (Lexapro) 20 mg PO DAILY [facility] Last Admin: 08/24/17 09:40 Dose: 20 mg Ferrous Gluconate (Fergon) 324 mg PO TID [facility] Last Admin: 08/24/17 09:41 Dose: 324 mg Hydralazine HCl (Apresoline) 10 mg IVP Q6 PRN PRN Reason: Systolic Blood Pressure Last Admin: 08/24/17 05:58 Dose: 10 mg Hydralazine HCl (Apresoline) 50 mg PO BID [facility] Last Admin: 08/24/17 09:41 Dose: 50 mg Insulin Human Regular (Humulin R Med) 0 units SC [facility] PRN Reason: Protocol Last Admin: 08/24/17 12:13 Dose: 5 units Lisinopril (Zestril) 20 mg PO DAILY [facility] Last Admin: 08/24/17 09:43 Dose: 20 mg Loratadine (Claritin) 10 mg PO DAILY [facility] Last Admin: 08/24/17 09:41 Dose: 10 mg Pantoprazole Sodium (Protonix Ec Tab) 40 mg PO 0600 [facility] Last Admin: 08/24/17 05:56 Dose: 40 mg Vitamin B Complex/Vit C/Folic Acid (Nephro-Nicko) 1 tab PO 0800 [facility] Last Admin: 08/24/17 09:40 Dose: 1 tab - Labs Labs: 08/24/17 09:30 08/24/17 09:30 PT 14.8 SECONDS (9.4-12.5) H 08/22/17 15:00 INR 1.29 (0.93-1.08) H 08/22/17 15:00 APTT 30.7 Seconds (25.1-36.5) 08/22/17 15:00 - Constitutional Appears: Well, Non-toxic, No Acute Distress - Head Exam Head Exam: ATRAUMATIC, NORMOCEPHALIC - Eye Exam Eye Exam: EOMI, Normal appearance, PERRL - ENT Exam ENT Exam: Mucous Membranes Moist, Normal Oropharynx - Neck Exam Neck Exam: Full ROM, Normal Inspection - Respiratory Exam Respiratory Exam: Clear to Ausculation Bilateral, NORMAL BREATHING PATTERN - Cardiovascular Exam Cardiovascular Exam: REGULAR RHYTHM, +S1, +S2 - GI/Abdominal Exam GI & Abdominal Exam: Soft, Normal Bowel Sounds - Extremities Exam Extremities Exam: Full ROM, Normal Capillary Refill, Normal Inspection - Neurological Exam Neurological Exam: Alert, Awake, Oriented x3 - Psychiatric Exam Psychiatric exam: Normal Affect - Skin Skin Exam: Dry, Intact, Normal Color, Warm Assessment and Plan - Assessment and Plan (Free Text) Assessment: 57 male with a PMH significant for 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 Plan: Leukocytosis w/ L Shift Pt. noted to have leukocytosis in outpt heme onc office PNA: Procal 0.78; CXR negative UTI: UA negative for pyuria/ bacteruria; UCX negative after 24 hours Blood Cx 2/2 negative after 24 hours. LE Duplex negative CT Maxofacial - chronic sinusitis Anbx d/c'd Per ID: leukocytosis 2/2 prednisone, no need for anbx therapy at this time Uncontrolled DM Suspect likely 2/2 prednisone use Holding home prednisone taper ISS Medium dose A1C 8.9 Normocytic Anemia - Iron deficiency Suspect Anemia of chronic disease vs. Chronic Kidney Disease Pt. 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 Justin Corona but office was closed today. Will f/u on Mon. HTN Hydralazine 50 BID Hydralazine 10 Q6 PRN Norvasc 5 daily as per nephro CAD s/p 2 stents Cont home Lipitor Lisinopril resumed as per nephro HLD Cont home lipitor BELLS PALSY Hold home prednisone + valtrex DVT/GI PPx: SCD + PROTONIX DISPO: Continue working up source of patient's leukocytosis; Continue management of JORDAN. Pt is to follow up w/ PMD Dr. Rebolledo and Heme Onc Dr. Corona once discharged. Case was seen and discussed w/ attending Dr. Alfredo. Alberto Coleman DO PGY-1, [facility] Compliance Officer Pager #[phone] <Dilan Alfredo - Last Filed: 08/25/17 07:34> Objective - Vital Signs/Intake and Output Vital Signs (last 24 hours): Temp Pulse Resp BP Pulse Ox 98.4 F 100 H 20 182/92 H 97 08/25/17 06:00 08/25/17 06:00 08/25/17 06:00 08/25/17 06:09 08/25/17 06:00 Intake and Output: 08/25/17 08/25/17 06:59 18:59 Intake Total 660 Output Total 0 Balance 660 - Medications Medications: Current Medications Amlodipine Besylate (Norvasc) 5 mg PO DAILY [facility] Last Admin: 08/24/17 09:43 Dose: 5 mg Atorvastatin Calcium (Lipitor) 10 mg PO DIN [facility] Last Admin: 08/24/17 17:33 Dose: 10 mg Escitalopram Oxalate (Lexapro) 20 mg PO DAILY [facility] Last Admin: 08/24/17 09:40 Dose: 20 mg Ferrous Gluconate (Fergon) 324 mg PO TID [facility] Last Admin: 08/24/17 17:33 Dose: 324 mg Hydralazine HCl (Apresoline) 10 mg IVP Q6 PRN PRN Reason: Systolic Blood Pressure Last Admin: 08/25/17 06:09 Dose: 10 mg Hydralazine HCl (Apresoline) 50 mg PO BID [facility] Last Admin: 08/24/17 17:33 Dose: 50 mg Insulin Human Regular (Humulin R Med) 0 units SC [facility] PRN Reason: Protocol Last Admin: 08/24/17 21:59 Dose: Not Given Lisinopril (Zestril) 20 mg PO DAILY [facility] Last Admin: 08/24/17 09:43 Dose: 20 mg Loratadine (Claritin) 10 mg PO DAILY [facility] Last Admin: 08/24/17 09:41 Dose: 10 mg Pantoprazole Sodium (Protonix Ec Tab) 40 mg PO 0600 [facility] Last Admin: 08/25/17 05:56 Dose: 40 mg Vitamin B Complex/Vit C/Folic Acid (Nephro-Nicko) 1 tab PO 0800 [facility] Last Admin: 08/24/17 09:40 Dose: 1 tab - Labs Labs: 08/25/17 06:20 08/24/17 09:30 PT 14.8 SECONDS (9.4-12.5) H 08/22/17 15:00 INR 1.29 (0.93-1.08) H 08/22/17 15:00 APTT 30.7 Seconds (25.1-36.5) 08/22/17 15:00 Attending/Attestation - Attestation I have personally seen and examined this patient.: Yes I have fully participated in the care of the patient.: Yes I have reviewed all pertinent clinical information, including history, physical exam and plan: Yes Notes (Text): 08/24/17 57 year old male with past medical history of nasopharyngeal cancer s/p radiation, hypertension, CAD s/p stents, DVT, diabetes, CKD and recently diagnosed Chowdhury's palsy who presented after being referred by his oncologist for leukocytosis and hyperglycemia. Of note patient was recently started on prednisone and valcyclovir for Chowdhury's palsy. In ER patient has leukocytosis ( 20.3), hyperglycemia and acute on chronic renal failure. CT maxofacial showed chronic sinusitis. ID evaluation was appreciated and antibiotics were discontinued. Cultures have been negative to date and leukocytosis is improving. CT abd/pelvis showed mild acute pancreatitis however patient denies any abdominal pain. Continue with diet as tolerated. LE dopplers were negative. Will need to discuss her patient's oncologist regarding anticoagulation given history of falls and epistaxis. Nephrology is following for hypertension and acute on chronic kidney disease. Continue with insulin ss. PT follow up was requested today for d/c planning. Dilan Alfredo MD Hospitalist.
--- NOTE | 2017-08-24 17:08 | CP.PCM.DIS ---
Provider - Provider Date of Admission: 08/22/17 16:25 Attending physician: Dilan Alfredo MD Primary care physician: Juan Rebolledo JD, MD Time Spent in preparation of Discharge (in minutes): 45 Hospital Course - Lab Results Lab Results: Most Recent Lab Values WBC 13.1 10^3/ul (4.5-11.0) H D 08/24/17 09:30 RBC 3.77 10^6/uL (3.5-6.1) 08/24/17 09:30 Hgb 10.9 g/dL (14.0-18.0) L 08/24/17 09:30 Hct 32.2 % (42.0-52.0) L 08/24/17 09:30 MCV 85.4 fl (80.0-105.0) 08/24/17 09:30 MCH 28.9 pg (25.0-35.0) 08/24/17 09:30 MCHC 33.9 g/dl (31.0-37.0) 08/24/17 09:30 RDW 16.3 % (11.5-14.5) H 08/24/17 09:30 Plt Count 258 10^3/uL (120.0-450.0) 08/24/17 09:30 MPV 11.0 fl (7.0-11.0) 08/24/17 09:30 Gran % 86.4 % (50.0-68.0) H 08/24/17 09:30 Lymph % (Auto) 7.4 % (22.0-35.0) L 08/24/17 09:30 Preble % (Auto) 4.2 % (1.0-6.0) 08/24/17 09:30 Eos % (Auto) 2.0 % (1.5-5.0) 08/24/17 09:30 Baso % (Auto) 0.0 % (0.0-3.0) 08/24/17 09:30 Gran # 11.29 (1.4-6.5) H 08/24/17 09:30 Lymph # (Auto) 1.0 (1.2-3.4) L 08/24/17 09:30 Preble # (Auto) 0.6 (0.1-0.6) 08/24/17 09:30 Eos # (Auto) 0.3 (0.0-0.7) 08/24/17 09:30 Baso # (Auto) 0.00 K/mm3 (0.0-2.0) 08/24/17 09:30 Neutrophils % (Manual) 92 % (50.0-70.0) H 08/22/17 15:00 Lymphocytes % (Manual) 3 % (22.0-35.0) L 08/22/17 15:00 Monocytes % (Manual) 5 % (1.0-6.0) 08/22/17 15:00 Platelet Evaluation Normal (NORMAL) 08/22/17 15:00 PT 14.8 SECONDS (9.4-12.5) H 08/22/17 15:00 INR 1.29 (0.93-1.08) H 08/22/17 15:00 APTT 30.7 Seconds (25.1-36.5) 08/22/17 15:00 pCO2 31 mm/Hg (35-45) L 08/23/17 05:45 pO2 85.0 mm/Hg (80-100) 08/23/17 05:45 HCO3 18.8 mmol/L (21-28) L 08/23/17 05:45 ABG pH 7.39 (7.35-7.45) 08/23/17 05:45 ABG Total CO2 19.8 mmol.L (22-28) L 08/23/17 05:45 ABG O2 Saturation 98.7 % (95-98) H 08/23/17 05:45 ABG O2 Content 14.1 ML/dl (15-23) L 08/23/17 05:45 ABG Base Excess -5.3 mmol/L (-2.0-3.0) L 08/23/17 05:45 ABG Hemoglobin 10.4 g/dL (11.7-17.4) L 08/23/17 05:45 ABG Carboxyhemoglobin 1.7 % (0.5-1.5) H 08/23/17 05:45 POC ABG HHb (Measured) 1.3 % (0-5) 08/23/17 05:45 ABG Methemoglobin 1.3 % (0.0-3.0) 08/23/17 05:45 ABG O2 Capacity 14.3 mL/dl (16-24) L 08/23/17 05:45 VBG pH 7.29 (7.32-7.43) L 08/22/17 15:00 VBG pCO2 40.0 (40-60) 08/22/17 15:00 VBG HCO3 19.2 mmol/l (21-28) L 08/22/17 15:00 VBG Total CO2 20.4 mmol.L (22-28) L 08/22/17 15:00 VBG O2 Sat (Calc) 99.1 % (40-65) H 08/22/17 15:00 VBG Base Excess -7.0 mmol/L (0.0-2.0) L 08/22/17 15:00 VBG Potassium 4.8 mmol/L (3.6-5.2) 08/22/17 15:00 Hgb O2 Saturation 95.7 % (95.0-98.0) 08/23/17 05:45 Sodium 136.0 mmol/L (132-148) 08/22/17 15:00 Chloride 110.0 mmol/L (98-107) H 08/22/17 15:00 Glucose 427 mg/dl (75-110) H* 08/22/17 15:00 Lactate 1.0 mmol/L (0.7-2.1) 08/22/17 15:00 FiO2 21.0 % 08/23/17 05:45 Sodium 142 mmol/L (132-148) 08/24/17 09:30 Potassium 4.2 mmol/L (3.6-5.0) 08/24/17 09:30 Chloride 112 mmol/L (98-107) H 08/24/17 09:30 Carbon Dioxide 22 mmol/L (21-33) 08/24/17 09:30 Anion Gap 12 (10-20) 08/24/17 09:30 BUN 60 mg/dL (7-21) H 08/24/17 09:30 Creatinine 2.1 mg/dl (0.8-1.5) H 08/24/17 09:30 Est GFR ( Amer) 40 08/24/17 09:30 Est GFR (Non-Af Amer) 33 08/24/17 09:30 POC Glucose (mg/dL) 287 mg/dL (65-110) H 08/24/17 11:40 Random Glucose 261 mg/dL (70-110) H 08/24/17 09:30 Hemoglobin A1c 8.9 % (4.2-6.5) H D 08/23/17 06:00 Calcium 8.4 mg/dL (8.4-10.5) 08/24/17 09:30 Phosphorus 3.1 mg/dL (2.5-4.5) 08/24/17 09:30 Iron 16 ug/dL (45-180) L 08/23/17 06:00 TIBC 170 ug/dL (261-462) L 08/23/17 06:00 % Saturation 9 % (20-55) L 08/23/17 06:00 Ferritin 303.0 ng/mL 08/23/17 06:00 Total Bilirubin 0.4 mg/dL (0.2-1.3) 08/24/17 09:30 AST 34 U/L (17-59) 08/24/17 09:30 ALT 47 U/L (7-56) 08/24/17 09:30 Alkaline Phosphatase 108 U/L (38-126) 08/24/17 09:30 Total Creatine Kinase 291 U/L (35-230) H 08/23/17 06:30 CK-MB (CK-2) 11.1 ng/mL (0.0-3.6) H 08/23/17 06:30 CK-MB (CK-2) % 3.8 % (2.5-3.0) H 08/23/17 06:30 Total Protein 5.4 g/dL (5.8-8.3) L 08/24/17 09:30 Total Protein (PEP) 5.1 g/dL (6.1-8.1) L 08/23/17 11:20 Albumin 2.8 g/dL (3.0-4.8) L 08/24/17 09:30 Globulin 2.6 gm/dL 08/24/17 09:30 Albumin/Globulin Ratio 1.1 (1.1-1.8) 08/24/17 09:30 25-OH Vitamin D Total < 12.8 NG/ML (30.0-100.0) L 08/24/17 09:30 Procalcitonin 0.78 NG/ML (0.19-0.49) H 08/22/17 15:40 Venous Blood Potassium 4.8 mmol/L (3.6-5.2) 08/22/17 15:00 Urine Color Yellow (YELLOW) 08/22/17 15:00 Urine Appearance Turbid (CLEAR) 08/22/17 15:00 Urine pH 6.0 (4.7-8.0) 08/22/17 15:00 Ur Specific Layton 1.025 (1.005-1.035) 08/22/17 15:00 Urine Protein >=300 mg/dL (<30 mg/dL) H 08/22/17 15:00 Urine Glucose (UA) >=1000 mg/dL (NEGATIVE) 08/22/17 15:00 Urine Ketones Negative mg/dL (NEGATIVE) 08/22/17 15:00 Urine Blood Moderate (NEGATIVE) H 08/22/17 15:00 Urine Nitrate Negative (NEGATIVE) 08/22/17 15:00 Urine Bilirubin Negative (NEGATIVE) 08/22/17 15:00 Urine Urobilinogen 0.2 E.U./dL (<1 E.U./dL) 08/22/17 15:00 Ur Leukocyte Esterase Negative Aura/uL (NEGATIVE) 08/22/17 15:00 Urine RBC 0 - 2 /hpf (0-2) 08/22/17 15:00 Urine WBC 1 - 3 /hpf (0-6) 08/22/17 15:00 Ur Epithelial Cells 3 - 4 /hpf (0-5) 08/22/17 15:00 Urine Bacteria Trace (NEG) 08/22/17 15:00 Hyaline Casts 0 - 2 /hpf 08/22/17 15:00 Complement C3 99.0 mg/dL (88.0-165.0) 08/23/17 06:30 Complement C4 22.6 mg/dL (14.0-44.0) 08/23/17 06:30 HIV 1&2 Ag/Ab, 4th Gen Nonreactive (Nonreactive) 08/23/17 06:00 Blood Type A POSITIVE 08/22/17 16:52 Antibody Screen Negative 08/22/17 16:52 BBK History Checked Patient has bt 08/22/17 16:52 - Hospital Course Hospital Course: Alberto Coleman DO PGY-1, [employer] Medicine Discharge Summary This is a 57M w/ a PMH significant for 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 Deana Corona noted leukocytosis and hyperglycemia. Pt. denied any fever, chills, chest pain, sob, n/v/d/c, back pain, JOY, and dizziness when presenting to the ED. Upon evaluation in ED; patient was hemodynamically stable, however blood pressures elevated 162/85; CXR in ED showed No acute cardio pulmonary processes. Lab work up in ED showed leukocytosis w/ L shift, normocytic anemia, nonAG metabolic acidosis, and JORDAN. CT Head and LE Duplex performed to r/o DVT/ VTE given patient's hx. CT Head demonstrated no acute process. LE Duplex was negative for DVT. Procalcitonin was elevated at 0.78. CXR was negative for any consolidation or PNA. Blood and urine cxs were negative on sepsis work-up. CT Maxillofacial demonstrated chronic sinusitis. Pt was initially placed on broad- spectrum antibiotics, but were de-escalated when sepsis work-up was negative. Per ID (Dr. Gagnon), leukocytosis was likely 2/2 to prednisone the pt was taking for his hx Chowdhury's palsy, and thus prednisone was d/c'd on admission. WBC improved after d/c of prednisone on admission. For hyperglycemia, pt's prednisone was held on admission, FS's were controlled with insulin, and then pt was discharged on dose of Januvia 50 mg, due to JORDAN on admission and CR clearance, as per Nephrology (Dr. Samuel). Metformin was discontinued due to concern of kidney clearance. On work-up for anemia, pt was placed on iron due to levels of ferritin/TIBC/iron, and was hemodynamically stable. For JORDAN, pt's home meds of lisinopril and lasix were held until Cr improved, and nephrology ( Dr. Samuel) titrated HTN meds and DM meds in order to balance Cr clearance and bp while pt was admitted. Pt was determined to have recent hx of falls, and was on Eliquis for hx of DVT on prior admissions. Decision was made at time to hold Eliquis due to risk of bleeding vs. need for anticoagulation. Pt's LE doppler was negative on admission, and [place] [facility] [place] so pt was instructed to f/u with PCP (Dr. Rebolledo) and Heme/Onc (Dr. Corona) regarding when Eliquis should be resumed. PT evaluated pt and deemed pt to need rolling walker and outpatient PT on discharge. On day of discharge, pt reported feeling well, observed ambulating around room, voiding well, tolerating PO diet. He was d/c to home in stable condition with instructions to follow-up with Dr. Rebolledo, Dr. Corona and Dr. Samuel within 1-2 weeks of discharge. Pt's blood pressure meds and DM medication was modified to account for Cr clearance as per nephrology. Pt was given script for rolling walker to use at home. Discharge Exam - Head Exam Head Exam: ATRAUMATIC, NORMOCEPHALIC - Eye Exam Eye Exam: Normal appearance, PERRL - ENT Exam ENT Exam: Mucous Membranes Moist - Neck Exam Neck exam: Full Rom, Normal Inspection - Respiratory Exam Respiratory Exam: NORMAL BREATHING PATTERN, UNREMARKABLE - Cardiovascular Exam Cardiovascular Exam: REGULAR RHYTHM, +S1, +S2 - GI/Abdominal Exam GI & Abdominal Exam: Normal Bowel Sounds, Soft, Unremarkable - Extremities Exam Extremities exam: full ROM, normal capillary refill, pedal pulses present - Back Exam Back exam: FULL ROM, NORMAL INSPECTION - Neurological Exam Neurological exam: Alert, CN II-XII Intact, Normal Gait, Oriented x3 - Psychiatric Exam Psychiatric exam: Normal Affect, Normal Mood - Skin Skin Exam: Dry, Intact, Normal Color, Warm Discharge Plan - Discharge Medications Prescriptions: amLODIPine [Norvasc] 10 mg PO DAILY #30 tab Cetirizine HCl [Wal-Zyr] 10 mg PO DAILY #30 capsule Dextran 70/Hypromellose/Pf [Artificial Tears Drops] 1 - 2 drop OD QID #1 bottle Ergocalciferol [Drisdol 50,000 Intl Units Cap] 1 cap PO Q7D #4 cap Escitalopram [Lexapro] 20 mg PO DAILY #5 tab Ferrous Gluconate [Fergon] 324 mg PO TID #21 tab hydrALAZINE [Apresoline] 100 mg PO BID #60 tab Lisinopril [Zestril] 20 mg PO DAILY #30 tab Loratadine 10 mg PO DAILY #30 tablet Simvastatin 20 mg PO DAILY #30 tablet SITagliptin [Januvia] 50 mg PO DAILY #30 tab Sodium Bicarbonate Tab 650 mg PO BID #60 tab Vitamin B Complex/Vit C/Folic [Nephro-Nicko] 1 tab PO 0800 #7 tab - Follow Up Plan Condition: FAIR Disposition: HOME/ ROUTINE Instructions: High Blood Pressure in Adults, Hyperglycemia, Adult, Chest Pain ( DC), Chest Pain (GEN), Constipation (DC), Constipation (GEN), Leukocytosis (DC) , Leukocytosis (GEN) Additional Instructions: Please follow-up with Dr. Rebolledo within 1 week of discharge. Please follow-up with Dr. Corona (Hematology/Oncology) within 1-2 weeks of discharge. Please follow-up with Dr. Samuel (Nephrology) within 1 week of discharge. Take medications as prescribed. Januvia 50 mg daily, Hydralazine 100 mg twice daily, Amlodipine 10 mg daily, Lisinopril 20 mg daily. Ergocalciferol 50,000 units 1 cap every 7 days, Sodium Bicarbonate 650 mg twice daily. Please return to the emergency department if symptoms recur or worsen. Please abide by carb-controlled diet for management of diabetes. Please stop taking your Eliquis, Lasix, Valacyclovir, and Prednisone unless instructed by your primary care provider. Continue all other home medications. Please use rolling walker for ambulation. Referrals: Juan Rebolledo JD, MD [Primary Care Provider] - Iraj Samuel MD [Staff Provider] -
[2017-08-25] MEDS: Pantoprazole 40 mg EC Tab PO SCH (05:56)
[2017-08-25 06:38] LABS: EOS # 0.3 (0.0-0.7); EOS % 2.7 % (1.5-5.0); GRAN % 83.1 % (50.0-68.0); HEMOGLOBIN 11.5 g/dL (14.0-18.0); LYMPH # 1.2 (1.2-3.4); LYMPH % 9.7 % (22.0-35.0); MEAN CELL VOLUME 85.6 fl (80.0-105.0); MEAN CORPUSCULAR HEMOGLOBIN 29.6 pg (25.0-35.0); MEAN CORPUSCULAR HGB CONC 34.6 g/dl (31.0-37.0); MEAN PLATELET VOLUME 10.2 fl (7.0-11.0); MONO # 0.5 (0.1-0.6); MONO % 4.5 % (1.0-6.0); RBC 3.88 10^6/uL (3.5-6.1); RED CELL DISTRIBUTION WIDTH 16.6 % (11.5-14.5)
[2017-08-25 08:10] LABS: HEPATITIS B CORE AB NEGATIVE (NEGATIVE)
[2017-08-25] MEDS: Insulin Reg-MEDIUM-Coverage SC SCH ×2 (08:15→12:13)
[2017-08-25] MEDS: Multivitamin Vitamin B Complex (Nephro-Vite) Tab PO SCH (08:15)
[2017-08-25 08:21] LABS: HEPATITIS C ANTIBODY NEGATIVE (NEGATIVE)
[2017-08-25 08:23] LABS: HEPATITIS B SURFACE AG Negative (NEGATIVE)
[2017-08-25 08:39] LABS: ALBUMIN 2.5 g/dL (3.0-4.8); CALCIUM 8.5 mg/dL (8.4-10.5)
[2017-08-25] MEDS ORDERED: Ergocalciferol 50,000 Intl Units Cap PO SCH (10:00)
[2017-08-25 11:30] VITALS: RESP 18; O2SAT 95
[2017-08-25 11:37] VITALS: BP 126/50; PULSE 92; TEMP 98.2
--- NOTE | 2017-08-25 11:53 | CP.PCM.PN ---
Subjective - Date & Time of Evaluation Date of Evaluation: 08/25/17 Time of Evaluation: 11:51 - Subjective Subjective: Nephrology Consultation Note (covering for Dr Stacy Moore): Assessment: Stable Acute Kidney Injury (N17.9) likely hemodynamic due to hyperglycemia, probably also contributed by meds such as nsaids + diuretics + acei microscopic hematuria Diabetic chronic Kidney Disease (E11.22) Hypertensive Chronic Kidney Disease (I12.9) Chronic Kidney Disease (N18.3) Stage 3 with 3+ ( ? 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 Hypertension control with meds as ordered. resume lisinopil and added norvasc. increased hydralazine Monitor Input/Output, daily weights and renal function with basic metabolic panel started iron and MVI supplements started weekly Vit D and sodium bicarb Check urine analysis, spot protein/creatinine and albumin/creatinine ratio, CPK , uric acid. Check for 25-OH vitamin D, iPTH, phosphorus level Check GN work up as C3, C4, BLAIRE, Anti dsDNA, ANCA (MPO and KS-3), serum protein electrophoresis with immunofixation and serum FLC assay, HIV/Hep B and Hep C serology Dose meds/antibiotics for reduced GFR. Avoid fleets enema/magnesium based laxatives. Avoid nephrotoxins/NSAIDs/ iodinated contrast (unless needed emergently) Glycemic control Further work up/management as per primary team pt stable for d/c from renal perspective when planned. Thanks for allowing me to participate in care of your patient. patient was advised to f/up in 1 week. Please call if any Qs. 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 pt also had a fall few days ago. he feels cold at this time. denies CP/SOB Denies OTC/herbal meds or NSAIDs but home meds list include Meloxicam No known recent iodinated contrast exposure. No obvious episodes of low BP. ROS: Cardiovascular: No chest pain. Pulmonary: No shortness of breath Gastrointestinal: denies abdominal pain No nausea. No vomiting. Genitourinary: No pain while urinating. Denies blood in urine. All other negative Physical Examination: General Appearance: Comfortable, in no acute respiratory distress, co-operative . ill appearing Vitals reviewed and noted as below Head; Atraumatic, normocephalic. Rt scalp old surgical scar + ENT: no thrush. Tongue is midline. Oropharynx: no rash or ulcers. left nostril ulcer + EYES: Pupils are equal, round and reactive to light accommodation. Eye muscles and extraocular movement intact. Sclera is anicteric. Neck; supple no lymphadenopathy, no thyromegaly or bruit Lungs: Normal respiratory rate/effort. Breath sounds bilateral equal and clear Heart: Normal rate. s1s2 normal. No rub or gallop. Extremities: 1-2+ edema. No varicose veins Neurological: Patient is alert, awake and oriented to person, place and time. left bells palsy +. Strength bilateral appropriate and equal Skin: Warm and dry. Normal turgor. No rash. Palpitation: Normal elasticity for age Abdomen: Abdomen is soft. Bowel sounds +. There is no abdominal tenderness, no guarding/rigidity no organomegaly Psych: limited insight and normal affect/mood MSK: no joint tenderness or swelling. Digits and nails normal, no deformity : kidney or bladder not palpable Labs/imaging reviewed. Past medical history, past surgical history, family history, social history, allergy reviewed and noted as below Family hx: no hx of CKD. Rest non-contributory work up: UA: 3+ protein moderate blood TSAT 9% ferritin 303 renal imaging: b/l non obstructing calculi Objective - Vital Signs/Intake and Output Vital Signs (last 24 hours): Temp Pulse Resp BP Pulse Ox 98.2 F 92 H 18 126/50 L 95 07/08/18 11:36 08/25/17 11:36 08/25/17 11:00 08/25/17 11:36 08/25/17 11:00 Intake and Output: 08/25/17 08/25/17 06:59 18:59 Intake Total 660 Output Total 0 Balance 660 - Medications Medications: Current Medications Amlodipine Besylate (Norvasc) 10 mg PO DAILY [facility] Last Admin: 08/25/17 10:07 Dose: Not Given Atorvastatin Calcium (Lipitor) 10 mg PO DIN [facility] Last Admin: 08/24/17 17:33 Dose: 10 mg Ergocalciferol (Drisdol 50,000 Intl Units Cap) 1 cap PO Q7D [facility] Last Admin: 08/25/17 10:11 Dose: 1 cap Escitalopram Oxalate (Lexapro) 20 mg PO DAILY [facility] Last Admin: 08/25/17 09:05 Dose: 20 mg Ferrous Gluconate (Fergon) 324 mg PO TID [facility] Last Admin: 08/25/17 09:05 Dose: 324 mg Hydralazine HCl (Apresoline) 10 mg IVP Q6 PRN PRN Reason: Systolic Blood Pressure Last Admin: 08/25/17 06:09 Dose: 10 mg Hydralazine HCl (Apresoline) 100 mg PO BID [facility] Last Admin: 08/25/17 10:08 Dose: Not Given Insulin Human Regular (Humulin R Med) 0 units SC ACHS [facility] PRN Reason: Protocol Last Admin: 08/25/17 08:15 Dose: 3 units Lisinopril (Zestril) 20 mg PO DAILY [facility] Last Admin: 08/25/17 09:05 Dose: 20 mg Loratadine (Claritin) 10 mg PO DAILY [facility] Last Admin: 08/25/17 09:06 Dose: 10 mg Pantoprazole Sodium (Protonix Ec Tab) 40 mg PO 0600 [facility] Last Admin: 08/25/17 05:56 Dose: 40 mg Sodium Bicarbonate (Sodium Bicarbonate Tab) 650 mg PO BID [facility] Last Admin: 08/25/17 10:11 Dose: 650 mg Vitamin B Complex/Vit C/Folic Acid (Nephro-Nicko) 1 tab PO 0800 [facility] Last Admin: 08/25/17 08:15 Dose: 1 tab - Labs Labs: 08/25/17 06:20 08/25/17 06:20 PT 14.8 SECONDS (9.4-12.5) H 08/22/17 15:00 INR 1.29 (0.93-1.08) H 08/22/17 15:00 APTT 30.7 Seconds (25.1-36.5) 08/22/17 15:00
--- NOTE | 2017-08-25 13:41 | PN ---
DATE: 08/25/2017 SUBJECTIVE: Patient is in bed, in no acute distress, nontoxic. PHYSICAL EXAMINATION: VITAL SIGNS: On exam, temperature is 98, blood pressure is 180/80, respiratory rate of 20, heart rate of 100. HEENT: Unremarkable. NECK: Supple. LUNGS: Have decreased breath sounds. HEART: Normal S1, S2. ABDOMEN: Soft, nontender. No rebound or guarding. LABORATORY EXAMINATION: Reveals a white count of 12,000, hemoglobin 11, platelets of 259. Chemistries reveals a BUN of 59, creatinine of 2. Urinalysis is noted. Patient's procalcitonin is elevated at 0.78 and microbiology reveals the patient's urine cultures have no growth. Blood cultures have no growth. Patient had a CAT scan of the abdomen and pelvis, which is noted to have possibly acute pancreatitis. Review of orders reveals the patient to be off of antibiotics. ASSESSMENT AND PLAN: A 57-year-old male who was seen earlier this morning in room 370, bed 1 with a history of coronary artery disease, depression, hypertension, hyperlipidemia, nasopharyngeal cancer status post chemotherapy and radiation and has anxiety, who was admitted with systemic inflammatory response syndrome, on prednisone 20 mg a day as outpatient, did have leukocytosis and hypoglycemia, had a CAT scan of the abdomen and pelvis, which is negative. Chest x-ray, which is negative. Urinalysis, which is negative with no growth in blood cultures, no growth in urine cultures, does have renal insufficiency, which may elevate the procalcitonin, no evidence of antibiotics. Currently, off of antibiotics. Initially was given a short course of Zosyn thus far. The patient is at risk for developing nosocomial infections. Jr Gagnon MD
[2017-08-27 23:46] LABS: ALBUMIN (PEP) 2.7 g/dL (3.8-4.8); ALPHA-1-GLOBULIN (PEP) 0.4 g/dL (0.2-0.3)
== END 2017-08-25 14:02 | disposition home or self-care (01) | DRG 814 ==
LOC: ED 13:11 → ERH 16:25 → 3RSO 18:17
PROVIDERS: ADMIT Internal Medicine; ATTEND Internal Medicine
DX: D72.829 Elevated white blood cell count, unspecified (principal); R65.10 Systemic inflammatory response syndrome (SIRS) of non-infectious origin without acute organ dysfunction; T38.0X5A Adverse effect of glucocorticoids and synthetic analogues, initial encounter; N17.9 Acute kidney failure, unspecified; E87.2 Acidosis; E11.65 Type 2 diabetes mellitus with hyperglycemia; K85.90 Acute pancreatitis without necrosis or infection, unspecified; I25.10 Atherosclerotic heart disease of native coronary artery without angina pectoris; G51.0 Bell's palsy; I12.9 Hypertensive chronic kidney disease with stage 1 through stage 4 chronic kidney disease, or unspecified chronic kidney disease; N18.9 Chronic kidney disease, unspecified; E78.5 Hyperlipidemia, unspecified; E11.22 Type 2 diabetes mellitus with diabetic chronic kidney disease; F41.9 Anxiety disorder, unspecified; R31.29 Other microscopic hematuria; E11.319 Type 2 diabetes mellitus with unspecified diabetic retinopathy without macular edema; D64.9 Anemia, unspecified; J32.9 Chronic sinusitis, unspecified; F32.9 Major depressive disorder, single episode, unspecified; Z85.818 Personal history of malignant neoplasm of other sites of lip, oral cavity, and pharynx; Z92.21 Personal history of antineoplastic chemotherapy; Z92.3 Personal history of irradiation; Z86.718 Personal history of other venous thrombosis and embolism; Z91.81 History of falling; Z95.5 Presence of coronary angioplasty implant and graft; Z87.891 Personal history of nicotine dependence

== ENCOUNTER 2017-09-06 15:15 | Inpatient (IN) | payer OTHER ==
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
[2017-09-06] MEDS ORDERED: TDAP Vaccine 0.5 mL Syr IM ONE (15:35)
[2017-09-06 17:19] LABS: URINE BILIRUBIN NEGATIVE (NEGATIVE); URINE BLOOD TRACE-INTACT (NEGATIVE); URINE GLUCOSE (UA) 100 mg/dL (NEGATIVE); URINE LEUKOCYTE ESTERASE NEGATIVE Leu/uL (NEGATIVE); URINE PROTEIN >=300 mg/dL (<30 mg/dL); URINE UROBILINOGEN 0.2 E.U./dL (<1 E.U./dL)
[2017-09-06 17:23] LABS: URINE APPEARANCE SLIGHT-CLOUDY (CLEAR); URINE COLOR YELLOW (YELLOW)
[2017-09-06 17:32] LABS: URINE BACTERIA TRACE (NEG); URINE WBC 0 - 2 /hpf (0-6)
--- NOTE | 2017-09-06 17:32 | CT ---
Date of service: 09/06/2017 PROCEDURE: CT HEAD WITHOUT CONTRAST. HISTORY: fall COMPARISON: Recent head CT from 08/07/2017. TECHNIQUE: Axial computed tomography images were obtained through the head/brain without intravenous contrast. Radiation dose: Total exam DLP = 1151.50 mGy-cm. This CT exam was performed using one or more of the following dose reduction techniques: Automated exposure control, adjustment of the mA and/or kV according to patient size, and/or use of iterative reconstruction technique. FINDINGS: HEMORRHAGE: Acute intraparenchymal hemorrhage in the left temporal lobe in the middle cranial fossa measuring approximately 1.8 x 2 x 2.1 centimeters. Surrounding edema and mild mass effect noted particularly involving the temporal horn of the lateral ventricles on the left side. Additional area of hemorrhage in the right parietal lobe measuring approximately 1.5 x 1.7 by 1.8 centimeters. This hemorrhage also demonstrates mild edema surrounding it. Minimal mass-effect noted upon the surrounding sulci and the right lateral ventricle. No other foci of hemorrhage clearly evident on this evaluation. BRAIN: Patchy and confluent hypodensities throughout the bilateral cerebral hemispheric white matter are most likely from chronic small vessel ischemic changes. Volume loss essentially stable as before. Area of encephalomalacia in the right frontal lobe. Sub centimeter hypodensity in the white matter of the right frontal lobe is better visualized on the current evaluation and is likely sequela of old ischemic insults. No midline shift or herniation evident. VENTRICLES: Unremarkable. No hydrocephalus. CALVARIUM: Evidence of old right-sided craniotomy. PARANASAL SINUSES: Layering fluid and mucosal thickening involving the maxillary sinus particularly on the right. Mild mucosal thickening involving the ethmoid sinuses. Old fracture of the medial wall of the right orbit. MASTOID AIR CELLS: Unremarkable as visualized. No inflammatory changes. OTHER FINDINGS: Carotid siphon calcifications. IMPRESSION: Two foci of acute intraparenchymal hemorrhage in the left temporal lobe and in the right parietal lobe. These foci of hemorrhage demonstrate mild surrounding edema and mass effect. No midline shift. No herniation evident. Close interval follow-up with repeat CT scan recommended. Other findings as above. Discussed with ASIA null at approximately 5:20 p.m. on 09/06/2017.
--- NOTE | 2017-09-06 17:34 | CT ---
Date of service: 09/06/2017 PROCEDURE: CT MAXILLOFACIAL BONES WITHOUT CONTRAST HISTORY: fall COMPARISON: Comparison is made to the previous study dated 08/22/2017. TECHNIQUE: Contiguous axial CT images of the maxillofacial bones were obtained. Coronal and sagittal reformats were generated. Radiation dose: Total exam DLP = 750.02 mGy-cm. This CT exam was performed using one or more of the following dose reduction techniques: Automated exposure control, adjustment of the mA and/or kV according to patient size, and/or use of iterative reconstruction technique. FINDINGS: NASAL BONES: Unremarkable. ORBITS: Deformity in the medial wall of the right orbit is again noted suggestive of old fracture. Otherwise the orbits are grossly unremarkable. PARANASAL SINUSES/ MASTOIDS: Mucosal thickening and air-fluid level noted in the right maxillary sinus. MAXILLA: Unremarkable. MANDIBLE/ TEMPOROMANDIBULAR JOINTS: Unremarkable. SKULL BASE: Unremarkable. TEMPORAL BONES: Middle ears and mastoid grossly unremarkable. OTHER FINDINGS: None. IMPRESSION: No evidence of acute fracture. Interval appearance of mucosal thickening and air-fluid with level in the right maxillary sinus since the previous exam. Re- demonstration of deformity in the right lamina papyracea and medial wall of the right orbit suggestive of old fracture.
[2017-09-06 17:39] LABS: BASO # 0.02 K/mm3 (0.0-2.0); BASO % 0.3 % (0.0-3.0); EOS # 0.1 (0.0-0.7); EOS % 1.9 % (1.5-5.0); GRAN # 5.87 (1.4-6.5); GRAN % 79.1 % (50.0-68.0); HEMOGLOBIN 10.7 g/dL (14.0-18.0); LYMPH # 0.9 (1.2-3.4); LYMPH % 11.6 % (22.0-35.0); MEAN CELL VOLUME 87.4 fl (80.0-105.0); MEAN CORPUSCULAR HEMOGLOBIN 30.1 pg (25.0-35.0); MEAN CORPUSCULAR HGB CONC 34.4 g/dl (31.0-37.0); MONO # 0.5 (0.1-0.6); MONO % 7.1 % (1.0-6.0); RBC 3.56 10^6/uL (3.5-6.1); RED CELL DISTRIBUTION WIDTH 16.3 % (11.5-14.5); WHITE BLOOD COUNT 7.4 10^3/ul (4.5-11.0)
--- NOTE | 2017-09-06 17:44 | RAD ---
Right knee History: Right knee injury and pain. Findings: Three views of the right knee demonstrates no evidence of acute fracture or dislocation. Mild degenerative changes. Soft tissue vascular calcifications. Inferior patellar enthesophyte. Impression: No acute fracture or dislocation. Repeat evaluation should be obtained if symptoms persist.
--- NOTE | 2017-09-06 17:47 | RAD ---
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 PLEURA: No pneumothorax or pleural fluid seen. CARDIOVASCULAR: Normal. OSSEOUS STRUCTURES: Degenerative changes. VISUALIZED UPPER ABDOMEN: Suboptimally seen. OTHER FINDINGS: None. IMPRESSION: Minimal hazy opacity left lung base. Recommend PA lateral chest radiographs.
[2017-09-06 17:49] LABS: INR 1.08 (0.93-1.08); PARTIAL THROMBOPLASTIN TIME 32.9 Seconds (25.1-36.5); PROTHROMBIN TIME 12.3 SECONDS (9.4-12.5)
[2017-09-06 17:58] LABS: ALB/GLOB RATIO 1.1 (1.1-1.8); ALBUMIN 3.7 g/dL (3.0-4.8); CALCIUM 8.6 mg/dL (8.4-10.5)
--- NOTE | 2017-09-06 18:43 | CP.PCM.PN ---
Subjective - Date & Time of Evaluation Date of Evaluation: 09/06/17 Time of Evaluation: 18:40 - Subjective Subjective: 57 yo male with hx of fall 2 days ago also hx nasopharyngial CA CT 2 hemorhagic lesions in l frontal and r pariatal lobes there is some surrounding edema No surgical intervention indicated, however would get MRI with contrast to r/o met that bled Also would get CT in AM just to compare that hematoma not bigger Objective - Vital Signs/Intake and Output Vital Signs (last 24 hours): Temp Pulse Resp BP Pulse Ox 98.3 F 94 H 18 178/90 H 98 09/06/17 15:22 09/06/17 18:21 09/06/17 18:21 09/06/17 18:21 09/06/17 18:21 - Labs Labs: 09/06/17 17:30 09/06/17 17:30 PT 12.3 SECONDS (9.4-12.5) 09/06/17 17:30 INR 1.08 (0.93-1.08) 09/06/17 17:30 APTT 32.9 Seconds (25.1-36.5) 09/06/17 17:30
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
[2017-09-06] MEDS ORDERED: Magnesium 2 gm/50 ml NS 2 GM/50 ML BAG IVPB ONE (20:07)
[2017-09-06] MEDS: Aritificial Tears (15ml) OD SCH (21:04)
[2017-09-06] MEDS: levETIRAcetam 1,000 MG in Sodium Chloride 0.9% 100 ML IV SCH (21:04)
[2017-09-06] MEDS: Insulin Lispro (humaLOG) MEDIUM Coverage SC SCH (21:33)
[2017-09-06] MEDS ORDERED: levETIRAcetam 500mg IVPB 500 MG/100 ML BAG IV ONE (21:43)
[2017-09-07 06:14] LABS: MEAN CELL VOLUME 87.3 fl (80.0-105.0); MEAN CORPUSCULAR HEMOGLOBIN 28.9 pg (25.0-35.0); MEAN CORPUSCULAR HGB CONC 33.1 g/dl (31.0-37.0); MEAN PLATELET VOLUME 9.6 fl (7.0-11.0); RBC 3.46 10^6/uL (3.5-6.1); RED CELL DISTRIBUTION WIDTH 16.1 % (11.5-14.5); WHITE BLOOD COUNT 5.7 10^3/ul (4.5-11.0)
[2017-09-07 07:21] LABS: ALB/GLOB RATIO 1.1 (1.1-1.8); ALBUMIN 3.1 g/dL (3.0-4.8); CALCIUM 8.2 mg/dL (8.4-10.5)
[2017-09-07 08:22] VITALS: BMI 29.9
--- NOTE | 2017-09-07 09:56 | PN ---
DATE: 09/07/2017 SUBJECTIVE: The patient is resting in bed. Awake, alert, responds appropriately to the spoken word. Hemodynamically stable. No complaints of any pain. Moving all extremities. No fever, chills, nausea or vomiting. No abdominal pain. No chest pain. No diarrhea. PHYSICAL EXAMINATION: VITAL SIGNS: Note that his temperature is 98.2, his pulse is 86, respirations of 14 and BP is 134/77, O2 saturation is 99%. HEENT: Head is atraumatic, normocephalic. Eyes reactive to light. Ears, nose and throat seemed to be within normal limits. NECK: Supple. No JVD. No thyroid enlargement. No lymph nodes. HEART: Has regular rate and rhythm. Normal S1, S2. LUNGS: Reveal good breath sounds bilaterally. ABDOMEN: Soft, nontender. Normal bowel sounds. GENITALIA: Deferred. RECTAL: Deferred. MUSCULOSKELETAL: No joint deformities. EXTREMITIES: Reveal trace lower extremity edema. NEUROLOGIC: The patient seems to be grossly intact. DATA: As far as his laboratories, his white count is 5.7, hemoglobin is 10, hematocrit 30.2 with platelets of 344,000. His sodium is 144, potassium 4.1, chloride 110, CO2 of 24 with a BUN of 32, creatinine of 1.7 and glucose of 204. IMPRESSION: As far as my impression, this patient had intracranial hemorrhage and new-onset seizure, has a history of nasopharyngeal carcinoma as well as anemia, coronary artery disease, diabetes, hypertension, hyperlipidemia, deep venous thrombosis and chronic kidney disease. PLAN: As far as our plan, we will continue to observe closely for neuro symptoms and neuro check. The patient has been seen by Neurosurgery as well as Neurology. He will continue with his hydralazine and he is on Decadron. The patient is getting Keppra and we will continue his Norvasc as well as Protonix and Zestril. I will continue to treat aggressively along with the other consultants and the primary care doctor. Joe Carter MD
[2017-09-07] MEDS: Insulin Lispro (humaLOG) MEDIUM Coverage SC SCH ×3 (10:19→16:10)
[2017-09-07] MEDS: Aritificial Tears (15ml) OD SCH ×4 (10:22→21:17)
[2017-09-07] MEDS: levETIRAcetam 1,000 MG in Sodium Chloride 0.9% 100 ML IV SCH (10:23)
--- NOTE | 2017-09-07 10:39 | CT ---
Date of service: 09/07/2017 PROCEDURE: CT HEAD WITHOUT CONTRAST. HISTORY: s/p fall, follow-up CT, monitor changes in bleeding COMPARISON: 09/06/2017. TECHNIQUE: Axial computed tomography images were obtained through the head/brain without intravenous contrast. Radiation dose: Total exam DLP = 869.89 mGy-cm. This CT exam was performed using one or more of the following dose reduction techniques: Automated exposure control, adjustment of the mA and/or kV according to patient size, and/or use of iterative reconstruction technique. FINDINGS: HEMORRHAGE: Interval evaluation of 2.4 x 2.9 x 1.8 cm acute hematoma in the left anterior temporal lobe. Redemonstration of 2.4 x 1.3 x 1.6 cm acute hematoma right posterior temporal lobe with mild surrounding vasogenic edema without significant interval change. BRAIN: There is cystic encephalomalacia in bilateral frontal lobes, larger on the right, sequela of remote injury. There is no mass or mass effect. VENTRICLES: The ventricles are normal in size, shape and configuration. CALVARIUM: Status post right temporoparietal craniotomy. There is an old fracture deformity in the right lamina papyracea. PARANASAL SINUSES: There is fluid in the right maxillary sinus. There is mild mucosal thickening in the left maxillary sinus. The remaining included paranasal sinuses are clear. MASTOID AIR CELLS: Predominantly clear. OTHER FINDINGS: None. IMPRESSION: 1. Interval evolution of acute hematoma as left anterior temporal lobe and right posterior temporal lobes. Mild surrounding vasogenic edema without midline shift or herniation. No hydrocephalus. 2. No other significant interval change.
--- NOTE | 2017-09-07 10:44 | CT ---
Date of service: 09/06/2017 PROCEDURE: CT Cervical Spine without contrast HISTORY: Fall COMPARISON: None available. TECHNIQUE: Axial computed tomography images were obtained of the cervical spine without the use of intravenous contrast. Coronal and sagittal reformatted images were created and reviewed. Radiation dose: Total exam DLP = 546.51 mGy-cm. This CT exam was performed using one or more of the following dose reduction techniques: Automated exposure control, adjustment of the mA and/or kV according to patient size, and/or use of iterative reconstruction technique. FINDINGS: VERTEBRAE: There is straightening of the cervical spine with loss of normal cervical lordosis. Vertebral alignment is normal. Vertebral height is maintained. There is no acute fracture or traumatic anterior listhesis. DISCS/SPINAL CANAL/NEURAL FORAMINA: Evaluation of the discs and spinal canal is limited on noncontrast CT examination. Allowing for this, mild multilevel degenerative disc disease due to combination of disc osteophyte complexes, uncovertebral joint hypertrophy and multilevel facet arthropathy without spinal canal stenosis. PARASPINAL SOFT TISSUES: No prevertebral soft tissue thickening. The paraspinous soft tissues are normal. OTHER FINDINGS: Please refer to CT scan of the brain for critical findings in the brain. IMPRESSION: No acute fracture or traumatic anterior listhesis. Straightening of the cervical spine may be positional or related to muscle spasm. A preliminary report was provided by [email or web address].
--- NOTE | 2017-09-07 12:16 | CARD ---
APPROVED REPORT Date of service: 09/06/2017 EKG Measurement Heart [id number] <Conclusion> Normal sinus rhythm Right bundle branch block Abnormal ECG
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
[2017-09-08 05:53] LABS: HEMOGLOBIN 9.2 g/dL (14.0-18.0); MEAN CELL VOLUME 86.9 fl (80.0-105.0); MEAN CORPUSCULAR HEMOGLOBIN 29.3 pg (25.0-35.0); MEAN CORPUSCULAR HGB CONC 33.7 g/dl (31.0-37.0); MEAN PLATELET VOLUME 9.7 fl (7.0-11.0); RBC 3.14 10^6/uL (3.5-6.1); RED CELL DISTRIBUTION WIDTH 16.2 % (11.5-14.5); WHITE BLOOD COUNT 10.6 10^3/ul (4.5-11.0)
--- NOTE | 2017-09-08 05:54 | CP.PCM.PN ---
Subjective - Date & Time of Evaluation Date of Evaluation: 09/08/17 Time of Evaluation: 05:51 - Subjective Subjective: Mr. Vigil was seen and examined at the bedside in ICU. He is alert, oriented in all spheres. He denies any headache, dizziness, lightheadedness. He is able to follow simple commands and let staff needs known. However, he has the episode of telling the staff of wanting to go home, but able to redirect accordingly. There was no untoward events overnight. Objective - Vital Signs/Intake and Output Vital Signs (last 24 hours): Temp Pulse Resp BP Pulse Ox 98.3 F 76 16 136/79 94 L 09/08/17 04:00 09/08/17 03:00 09/08/17 03:00 09/08/17 02:30 09/08/17 03:00 Intake and Output: 09/07/17 09/08/17 18:59 06:59 Intake Total 600 Output Total 300 Balance 300 - Medications Medications: Current Medications Amlodipine Besylate (Norvasc) 10 mg PO DAILY [facility] Last Admin: 09/07/17 10:22 Dose: 10 mg Artificial Tears (Artificial Tears) 0 ml OD QID [facility] Last Admin: 09/07/17 21:17 Dose: 1 drop Dexamethasone (Decadron Inj) 10 mg IVP Q8 [facility] Last Admin: 09/07/17 21:16 Dose: 10 mg Hydralazine HCl (Apresoline) 100 mg PO BID [facility] Last Admin: 09/07/17 18:39 Dose: Not Given Hydralazine HCl (Apresoline) 10 mg IVP Q6 PRN PRN Reason: Systolic Blood Pressure > 150 Last Admin: 09/06/17 21:05 Dose: 10 mg Levetiracetam 750 mg/ Sodium (Chloride) 107.5 mls @ 460 mls/hr IV Q12 [facility] Last Admin: 09/07/17 21:16 Dose: 460 mls/hr Insulin Human Lispro (Humalog Med) 0 units SC ACHS [facility] PRN Reason: Protocol Last Admin: 09/07/17 16:10 Dose: 7 u Lisinopril (Zestril) 20 mg PO DAILY [facility] Last Admin: 09/07/17 10:22 Dose: 20 mg Pantoprazole Sodium (Protonix Inj) 40 mg IVP DAILY [facility] Last Admin: 09/07/17 10:23 Dose: 40 mg - Labs Labs: 09/07/17 05:30 09/07/17 05:30 PT 12.3 SECONDS (9.4-12.5) 09/06/17 17:30 INR 1.08 (0.93-1.08) 09/06/17 17:30 APTT 32.9 Seconds (25.1-36.5) 09/06/17 17:30 - Constitutional Appears: No Acute Distress - Head Exam Head Exam: NORMAL INSPECTION - Eye Exam Pupil Exam: PERRL - Neurological Exam Neurological Exam: Alert, Awake Neuro motor strength exam: Left Upper Extremity: 5, Right Upper Extremity: 5, Left Lower Extremity: 5, Right Lower Extremity: 5 Additional comments: alert, oriented, able to follow simple commands, sensation is intact. Assessment and Plan (1) Intracranial hemorrhage Assessment & Plan: Case discussed with Dr. Irizarry, continue all current medical regimen. Pending MRI of the brain with and without contrast, decadron can be discontinued, blood pressure and glycemic control, normothermia,treat any electrolyte abnormalities. Status: Acute
[2017-09-08 06:45] LABS: ALBUMIN 2.9 g/dL (3.0-4.8); CALCIUM 8.2 mg/dL (8.4-10.5)
[2017-09-08] MEDS: Insulin Lispro (humaLOG) MEDIUM Coverage SC SCH (08:13)
--- NOTE | 2017-09-08 08:34 | PN ---
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 Moving all extremities, but unfortunately he is very combative this morning. The patient states that he wants to go home and can be very violent. No shortness of breath. No cough. No wheezing. No complaints of pain. No fever, chills, nausea or vomiting. PHYSICAL EXAMINATION: VITAL SIGNS: Note that his temperature is 98.3, pulse is 78, respirations of 16 and BP is 136/79, O2 saturation is 95%. HEENT: Head is atraumatic, normocephalic. Eyes reactive to light. Ears, nose and throat seemed to be within normal limits. NECK: Supple. No JVD. No thyroid enlargement. No lymph nodes. HEART: Has regular rate and rhythm. Normal S1, S2. LUNGS: Reveal good breath sounds bilaterally. ABDOMEN: Soft. Decrease bowel sounds. GENITALIA: Deferred. RECTAL: Deferred. MUSCULOSKELETAL: No joint deformities. EXTREMITIES: Reveal no edema. NEUROLOGIC: The patient is moving all extremities with full strength, but combative this morning. He does respond appropriately when able to calm him down. LABORATORY DATA: White count is 10.6, hemoglobin is 9.2, hematocrit 27.3 with platelets of 372,000. Sodium is 141, potassium 4.5, chloride 110, CO2 of 23 with a BUN of 47, creatinine of 3.1 and a glucose of 290. IMPRESSION: This patient has intracranial hemorrhage with new-onset seizures, history of nasopharyngeal carcinoma as well as anemia, coronary artery disease, diabetes, hypertension, hyperlipidemia, past history of deep venous thrombosis and chronic kidney disease. Note that the patient has episodes of being combative this morning. PLAN: As far as our plan, we will continue to follow closely with Neuro checks. The patient is being followed by Neurology and Neurosurgery. He is scheduled for MRI today, but unsure if it can be done because of episodes of being combative. He will continue with his hydralazine, his Decadron, his Keppra, Norvasc, Protonix and Zestril. The patient will be given Ativan p.r.n. for episodes of being combative and it is necessary to put wrist restraints. We will continue to treat aggressively along with the other consultants and the primary care doctor. Joe Carter MD
[2017-09-08] MEDS: Aritificial Tears (15ml) OD SCH ×4 (09:16→21:52)
--- NOTE | 2017-09-08 12:27 | US ---
HISTORY: Leg pain and swelling. Evaluate for DVT PHYSICIAN(S): Jaime Verma MD. TECHNIQUE: Duplex sonography and color-flow Doppler with graded compression were used to evaluate the deep venous systems of both lower extremities. The exam is limited by edema. The tibial veins are not well seen. FINDINGS: The visualized deep venous systems of both lower extremities are sonographically normal and compressible. Normal wave forms and augmentation are seen. There is no sonographic evidence for deep venous thrombosis in the visualized segments of both lower extremities. IMPRESSION: No sonographic evidence for deep venous thrombosis in the visualized segments of both lower extremities.
[2017-09-08] MEDS: Insulin Reg-LOW-Coverage SC SCH ×3 (12:39→22:08)
--- NOTE | 2017-09-08 12:59 | PN ---
DATE: 09/08/2017 SUBJECTIVE: The patient is lying in bed, monitored in the Intensive Care Unit, in no acute distress. The nursing staff reports occasional agitation. He is currently on one-to-one observation. PHYSICAL EXAMINATION VITAL SIGNS: Blood pressure 128/67, temperature 97.8, pulse 74, respiratory rate 14. LUNGS: Clear. HEART: Regular rate and rhythm. ABDOMEN: Soft, nontender. Bowel sounds are normoactive. EXTREMITIES: With trace bipedal edema. NEUROLOGICAL: The patient is slightly lethargic, but arousable. Motor strength is 4+/5 on both upper extremities bilaterally, 5-/5 in both lower extremities bilaterally. SKIN: Warm and dry. LABORATORY DATA: WBC is 10.6, hemoglobin 9.2, hematocrit 27.3. Sodium of 141, potassium 4.5, chloride 110, CO2 of 23, BUN 47, creatinine 3.1, glucose 290. IMPRESSION: 1. Intracranial bleed. 2. Seizure disorder. 3. Type 2 diabetes mellitus. 4. Coronary artery disease. 5. Hypertension. 6. Chronic kidney disease. PLAN: Continue neurologic and Neurosurgery followup. We will discontinue IV Decadron. We will also discontinue CHERY inhibitors secondary to increasing azotemia. The patient for Renal consult. Continue monitoring in ICU. Physical therapy evaluation and treatment when stable. FENG Thompson MD
--- NOTE | 2017-09-08 15:32 | MRI ---
Date of service: 09/08/2017 PROCEDURE: MRI BRAIN WITHOUT CONTRAST HISTORY: r/o mass COMPARISON: Noncontrast head CT from 09/07/2017 10/07/2017 TECHNIQUE: Multiplanar, multisequence MR images of the brain were obtained without intravenous contrast enhancement. FINDINGS: HEMORRHAGE: Again seen is a 2.4 x 2.2 cm T1 hyperintense and T2 hypo intense early subacute hematoma in the left anterior temporal lobe with moderate surrounding vasogenic edema and mass effect on the left temporal horn with effacement. There is redemonstration of early subacute hematoma in the right posterior temporal lobe measuring 2.5 x 1.0 cm with mild surrounding vasogenic edema and mild mass effect on the right occipital horn. DWI: No evidence of an acute or early subacute infarction. BRAIN PARENCHYMA: There is no midline shift or herniation. There are focal areas of cystic encephalomalacia and gliosis in both frontal lobes, larger on the right, sequela of remote injury. There are old infarctions in the martinez radiata and right centrum semiovale. There is no extra-axial fluid collection. The midline sagittal structures are normal VENTRICLES: There is mild age-related global parenchymal volume loss and proportionate enlargement of the ventricles and cortical sulci. CRANIUM: There is normal bone marrow signal pattern. Post right craniotomy ORBITS: Grossly unremarkable. PARANASAL SINUSES/MASTOIDS: Mild mucosal thickening in the paranasal sinuses. The mastoid air cells are predominantly clear. VASCULAR SYSTEM: There are normal signal voids in the larger intracranial arteries. OTHER FINDINGS: None. IMPRESSION: 1. Redemonstration of the 2.4 x 2.2 cm left anterior temporal lobe and 2.5 x 1.0 cm right posterior temporal lobe early subacute hematomas with [id number] surrounding vasogenic edema without midline shift or herniation. No hydrocephalus. 2. Focal cystic encephalomalacia and gliosis in both frontal lobes, worse on the right, sequela of remote injury. 3. Old lacunar infarctions in the centrum semiovale and martinez radiata. Mild age-related global parenchymal volume loss.
[2017-09-08] MEDS ORDERED: Mupirocin 2% Ointment 15 GM TUBE NS SCH (18:00)
[2017-09-08] MEDS: Mupirocin 2% Ointment 15 GM TUBE NS SCH (18:33)
[2017-09-09 06:08] LABS: MEAN CELL VOLUME 87.8 fl (80.0-105.0); MEAN CORPUSCULAR HEMOGLOBIN 29.8 pg (25.0-35.0); MEAN CORPUSCULAR HGB CONC 33.9 g/dl (31.0-37.0); MEAN PLATELET VOLUME 9.7 fl (7.0-11.0); RBC 3.36 10^6/uL (3.5-6.1); RED CELL DISTRIBUTION WIDTH 16.4 % (11.5-14.5); WHITE BLOOD COUNT 14.2 10^3/ul (4.5-11.0)
[2017-09-09 06:20] LABS: ALB/GLOB RATIO 1.1 (1.1-1.8); ALBUMIN 2.9 g/dL (3.0-4.8); CALCIUM 8.4 mg/dL (8.4-10.5)
--- NOTE | 2017-09-09 14:25 | CP.PCM.PN ---
Subjective - Date & Time of Evaluation Date of Evaluation: 09/09/17 Time of Evaluation: 13:30 - Subjective Subjective: agitated, wants to go home, OOB ambulating, gait somewhat unsteady Objective - Vital Signs/Intake and Output Vital Signs (last 24 hours): Temp Pulse Resp BP Pulse Ox 97.6 F 81 13 152/85 H 98 09/09/17 04:00 09/09/17 12:47 09/09/17 12:47 09/09/17 09:17 09/09/17 00:00 Intake and Output: 09/09/17 09/09/17 06:59 18:59 Intake Total 400 Output Total 550 Balance -150 - Medications Medications: Current Medications Amlodipine Besylate (Norvasc) 10 mg PO DAILY [facility] Last Admin: 09/09/17 09:15 Dose: 10 mg Artificial Tears (Artificial Tears) 0 ml OD QID [facility] Last Admin: 09/08/17 21:52 Dose: 1 drop Hydralazine HCl (Apresoline) 100 mg PO BID [facility] Last Admin: 09/09/17 09:17 Dose: 100 mg Hydralazine HCl (Apresoline) 10 mg IVP Q6 PRN PRN Reason: Systolic Blood Pressure > 150 Last Admin: 09/06/17 21:05 Dose: 10 mg Insulin Human Regular (Humulin R Low) 0 units SC ACHS [facility] PRN Reason: Protocol Last Admin: 09/08/17 22:08 Dose: Not Given Levetiracetam (Keppra) 750 mg PO BID [facility] Lorazepam (Ativan) 1 mg IM Q6H PRN; Protocol PRN Reason: Anxiety Last Admin: 09/08/17 12:38 Dose: 1 mg Mupirocin (Bactroban Ointment) 0 gm NS BID [facility] Stop: 09/13/17 10:01 Last Admin: 09/08/17 18:33 Dose: 1 oin Pantoprazole Sodium (Protonix Ec Tab) 40 mg PO ACB [facility] - Labs Labs: 09/09/17 05:45 09/09/17 05:45 PT 12.3 SECONDS (9.4-12.5) 09/06/17 17:30 INR 1.08 (0.93-1.08) 09/06/17 17:30 APTT 32.9 Seconds (25.1-36.5) 09/06/17 17:30 - Respiratory Exam Respiratory Exam: Clear to Ausculation Bilateral, NORMAL BREATHING PATTERN - Cardiovascular Exam Cardiovascular Exam: REGULAR RHYTHM - GI/Abdominal Exam GI & Abdominal Exam: Soft, Normal Bowel Sounds - Extremities Exam Extremities Exam: Normal Inspection - Neurological Exam Neurological Exam: Alert, Awake - Psychiatric Exam Psychiatric exam: Agitated, Flat Affect - Skin Skin Exam: Dry, Warm Assessment and Plan (1) Intracranial hemorrhage Status: Acute (2) Fall Status: Inactive - Assessment and Plan (Free Text) Plan: psych eval, medically stable for transfer to telemetry, PT/SW for discharge planning
[2017-09-09] MEDS: Aritificial Tears (15ml) OD SCH ×3 (14:35→21:20)
--- NOTE | 2017-09-09 15:27 | CP.CCUPN ---
<Gilbert Bullock - Last Filed: 09/09/17 16:06> CCU Subjective - Physician Review Subjective (Free Text): Gilbert Bullock DO PGY-1, ICU progress note for Dr. Martinez Pt was seen and examined at bedside. Pt has no complaints at this time and would like to go home. Overnight, pt was restless, but no seizure activity or fevers. Pt voided 1200 mL of urine over the past 24 hours. Pt denies fever, headache, dizziness, weakness, chest pain, palpitations, SOB, abdominal pain, n/ v/d. A 12-point ROS was reviewed and is unremarkable except as above. CCU Objective - Vital Signs / Intake & Output Vital Signs (Last 4 hours): Vital Signs Pulse Resp 09/09/17 12:47 81 13 09/09/17 12:46 77 18 09/09/17 12:45 75 18 09/09/17 12:44 76 16 09/09/17 12:43 73 17 09/09/17 12:42 75 19 09/09/17 12:41 71 15 09/09/17 12:40 74 15 09/09/17 12:39 78 16 09/09/17 12:38 85 26 H 09/09/17 12:37 101 H 21 09/09/17 12:36 91 H 18 09/09/17 12:35 90 43 H 09/09/17 12:34 93 H 21 09/09/17 12:33 94 H 29 H 09/09/17 12:31 78 20 09/09/17 12:30 78 39 H 09/09/17 12:29 76 13 09/09/17 12:28 80 09/09/17 12:27 79 18 09/09/17 12:26 94 H 17 09/09/17 12:25 83 09/09/17 12:24 82 15 09/09/17 12:23 81 15 09/09/17 12:22 88 09/09/17 12:21 88 09/09/17 12:19 83 15 09/09/17 12:18 81 13 09/09/17 12:17 94 H 11 L 09/09/17 12:16 91 H 09/09/17 12:15 93 H 13 09/09/17 12:14 90 18 09/09/17 12:13 97 H 14 09/09/17 12:12 94 H 09/09/17 12:11 91 H 17 09/09/17 12:10 91 H 20 09/09/17 12:09 90 13 09/09/17 12:08 94 H 18 09/09/17 12:07 91 H 17 09/09/17 12:06 93 H 17 09/09/17 12:05 83 15 09/09/17 12:04 72 17 09/09/17 12:03 72 15 09/09/17 12:02 71 12 09/09/17 12:01 69 9 L 09/09/17 12:00 74 10 L 09/09/17 11:59 73 20 09/09/17 11:58 74 15 09/09/17 11:57 77 09/09/17 11:56 75 13 Intake and Output (Last 8hrs): Intake & Output 09/09/17 09/09/17 09/09/17 06:59 14:59 22:59 Intake Total 400 Output Total 550 Balance -150 Weight 81.647 kg Intake: IV 100 Right Wrist 100 Oral 300 Output: Urine 550 Urethral (Barrientos) 550 - Physical Exam Head: Positive for: Atraumatic, Normocephalic, Other (Facial: (+) healing nasal bridge superficial abrasion 1cm with no laceration, no deformity, no ecchymosis. ). Negative for: Tenderness, Contusion, Swelling, Ecchymosis, Abrasion, Laceration Pupils: Positive for: PERRL Extroacular Muscles: Positive for: EOMI Conjunctiva: Positive for: Normal Ears: Positive for: NORMAL TM, Normal Canal Mouth: Positive for: Moist Mucous Membranes Neck: Positive for: Normal Range of Motion Respiratory/Chest: Positive for: Clear to Auscultation, Good Air Exchange. Negative for: Respiratory Distress, Accessory Muscle Use Cardiovascular: Positive for: Regular Rate and Rhythm, Normal S1, S2, Other ( bilateral lower extremities nonpitting pedal edema 1+ noted). Negative for: Murmurs Abdomen: Positive for: Normal Bowel Sounds. Negative for: Tenderness, Distention, Peritoneal Signs, Rebound, Guarding Back: Positive for: Normal Inspection Upper Extremity: Positive for: Normal Inspection. Negative for: Deformity Lower Extremity: Positive for: Normal Inspection, NORMAL PULSES, Neurovascularly Intact. Negative for: Deformity Neurological: Positive for: GCS=15, Speech Normal Skin: Positive for: Warm, Dry, Normal Color Psychiatric: Positive for: Alert, Oriented x 3, Normal Insight, Normal Concentration - Medications Active Medications: Active Medications Generic Name Dose Route Start Last Admin Trade Name Freq PRN Reason Stop Dose Admin Amlodipine Besylate 10 mg 09/07/17 10:00 09/09/17 09:15 Norvasc PO 10 mg DAILY JAVIER Administration Artificial Tears 0 ml 09/06/17 22:00 09/08/17 21:52 Artificial Tears OD 1 drop QID JAVIER Administration Hydralazine HCl 100 mg 09/06/17 20:00 09/09/17 09:17 Apresoline PO 100 mg BID JAVIER Administration Hydralazine HCl 10 mg 09/06/17 19:58 09/06/17 21:05 Apresoline IVP 10 mg Q6 PRN Administration Systolic Blood Pressure > 150 Insulin Human Regular 0 units 09/08/17 11:30 09/08/17 22:08 Humulin R Low SC Not Given ACHS [facility] Protocol Levetiracetam 750 mg 09/09/17 18:00 Keppra PO BID JAVIER Lorazepam 1 mg 09/08/17 07:39 09/08/17 12:38 Ativan IM 1 mg Q6H PRN Administration Anxiety Protocol Mupirocin 0 gm 09/08/17 18:00 09/08/17 18:33 Bactroban Ointment NS 09/13/17 10:01 1 oin BID JAVIER Administration Pantoprazole Sodium 40 mg 09/10/17 07:30 Protonix Ec Tab PO ACB [facility] - Patient Studies Lab Studies: Microbiology Studies 09/07/17 00:00 MRSA Culture (Admit) - Final Nose MRSA DETECTED Lab Studies 09/09/17 09/09/17 09/09/17 Range/Units 07:44 05:45 05:45 WBC 14.2 H D (4.5-11.0) 10^3/ul RBC 3.36 L (3.5-6.1) 10^6/uL Hgb 10.0 L (14.0-18.0) g/dL Hct 29.5 L (42.0-52.0) % MCV 87.8 (80.0-105.0) fl MCH 29.8 (25.0-35.0) pg MCHC 33.9 (31.0-37.0) g/dl RDW 16.4 H (11.5-14.5) % Plt Count 372 (120.0-450.0) 10^3/uL MPV 9.7 (7.0-11.0) fl Sodium 144 (132-148) mmol/L Potassium 4.4 (3.6-5.0) mmol/L Chloride 113 H (98-107) mmol/L Carbon Dioxide 25 (21-33) mmol/L Anion Gap 11 (10-20) BUN 55 H (7-21) mg/dL Creatinine 3.0 H (0.8-1.5) mg/dl Est GFR ( Amer) 26 Est GFR (Non-Af Amer) 22 POC Glucose (mg/dL) 141 H (65-110) mg/dL Random Glucose 172 H (70-110) mg/dL Calcium 8.4 (8.4-10.5) mg/dL Phosphorus 3.7 (2.5-4.5) mg/dL Magnesium 1.8 (1.7-2.2) mg/dL Total Bilirubin 0.2 (0.2-1.3) mg/dL AST 27 (17-59) U/L ALT 31 (7-56) U/L Alkaline Phosphatase 90 (38-126) U/L Total Protein 5.7 L (5.8-8.3) g/dL Albumin 2.9 L (3.0-4.8) g/dL Globulin 2.8 gm/dL Albumin/Globulin Ratio 1.1 (1.1-1.8) 09/08/17 09/08/17 09/08/17 Range/Units 22:05 16:27 11:24 WBC (4.5-11.0) 10^3/ul RBC (3.5-6.1) 10^6/uL Hgb (14.0-18.0) g/dL Hct (42.0-52.0) % MCV (80.0-105.0) fl MCH (25.0-35.0) pg MCHC (31.0-37.0) g/dl RDW (11.5-14.5) % Plt Count (120.0-450.0) 10^3/uL MPV (7.0-11.0) fl Sodium (132-148) mmol/L Potassium (3.6-5.0) mmol/L Chloride (98-107) mmol/L Carbon Dioxide (21-33) mmol/L Anion Gap (10-20) BUN (7-21) mg/dL Creatinine (0.8-1.5) mg/dl Est GFR ( Amer) Est GFR (Non-Af Amer) POC Glucose (mg/dL) 189 H 272 H 300 H (65-110) mg/dL Random Glucose (70-110) mg/dL Calcium (8.4-10.5) mg/dL Phosphorus (2.5-4.5) mg/dL Magnesium (1.7-2.2) mg/dL Total Bilirubin (0.2-1.3) mg/dL AST (17-59) U/L ALT (7-56) U/L Alkaline Phosphatase (38-126) U/L Total Protein (5.8-8.3) g/dL Albumin (3.0-4.8) g/dL Globulin gm/dL Albumin/Globulin Ratio (1.1-1.8) 09/08/17 09/07/17 09/07/17 Range/Units 07:32 21:40 16:04 WBC (4.5-11.0) 10^3/ul RBC (3.5-6.1) 10^6/uL Hgb (14.0-18.0) g/dL Hct (42.0-52.0) % MCV (80.0-105.0) fl MCH (25.0-35.0) pg MCHC (31.0-37.0) g/dl RDW (11.5-14.5) % Plt Count (120.0-450.0) 10^3/uL MPV (7.0-11.0) fl Sodium (132-148) mmol/L Potassium (3.6-5.0) mmol/L Chloride (98-107) mmol/L Carbon Dioxide (21-33) mmol/L Anion Gap (10-20) BUN (7-21) mg/dL Creatinine (0.8-1.5) mg/dl Est GFR ( Amer) Est GFR (Non-Af Amer) POC Glucose (mg/dL) 284 H 257 H 329 H (65-110) mg/dL Random Glucose (70-110) mg/dL Calcium (8.4-10.5) mg/dL Phosphorus (2.5-4.5) mg/dL Magnesium (1.7-2.2) mg/dL Total Bilirubin (0.2-1.3) mg/dL AST (17-59) U/L ALT (7-56) U/L Alkaline Phosphatase (38-126) U/L Total Protein (5.8-8.3) g/dL Albumin (3.0-4.8) g/dL Globulin gm/dL Albumin/Globulin Ratio (1.1-1.8) 09/07/17 Range/Units 11:40 WBC (4.5-11.0) 10^3/ul RBC (3.5-6.1) 10^6/uL Hgb (14.0-18.0) g/dL Hct (42.0-52.0) % MCV (80.0-105.0) fl MCH (25.0-35.0) pg MCHC (31.0-37.0) g/dl RDW (11.5-14.5) % Plt Count (120.0-450.0) 10^3/uL MPV (7.0-11.0) fl Sodium (132-148) mmol/L Potassium (3.6-5.0) mmol/L Chloride (98-107) mmol/L Carbon Dioxide (21-33) mmol/L Anion Gap (10-20) BUN (7-21) mg/dL Creatinine (0.8-1.5) mg/dl Est GFR ( Amer) Est GFR (Non-Af Amer) POC Glucose (mg/dL) 250 H (65-110) mg/dL Random Glucose (70-110) mg/dL Calcium (8.4-10.5) mg/dL Phosphorus (2.5-4.5) mg/dL Magnesium (1.7-2.2) mg/dL Total Bilirubin (0.2-1.3) mg/dL AST (17-59) U/L ALT (7-56) U/L Alkaline Phosphatase (38-126) U/L Total Protein (5.8-8.3) g/dL Albumin (3.0-4.8) g/dL Globulin gm/dL Albumin/Globulin Ratio (1.1-1.8) Laboratory Results - last 24 hr 09/07/17 09/07/17 09/07/17 11:40 16:04 21:40 WBC RBC Hgb Hct MCV MCH MCHC RDW Plt Count MPV Sodium Potassium Chloride Carbon Dioxide Anion Gap BUN Creatinine Est GFR ( Amer) Est GFR (Non-Af Amer) POC Glucose (mg/dL) 250 H 329 H 257 H Random Glucose Calcium Phosphorus Magnesium Total Bilirubin AST ALT Alkaline Phosphatase Total Protein Albumin Globulin Albumin/Globulin Ratio 09/08/17 09/08/17 09/08/17 07:32 11:24 16:27 WBC RBC Hgb Hct MCV MCH MCHC RDW Plt Count MPV Sodium Potassium Chloride Carbon Dioxide Anion Gap BUN Creatinine Est GFR ( Amer) Est GFR (Non-Af Amer) POC Glucose (mg/dL) 284 H 300 H 272 H Random Glucose Calcium Phosphorus Magnesium Total Bilirubin AST ALT Alkaline Phosphatase Total Protein Albumin Globulin Albumin/Globulin Ratio 09/08/17 09/09/17 09/09/17 22:05 05:45 05:45 WBC 14.2 H D RBC 3.36 L Hgb 10.0 L Hct 29.5 L MCV 87.8 MCH 29.8 MCHC 33.9 RDW 16.4 H Plt Count 372 MPV 9.7 Sodium 144 Potassium 4.4 Chloride 113 H Carbon Dioxide 25 Anion Gap 11 BUN 55 H Creatinine 3.0 H Est GFR ( Amer) 26 Est GFR (Non-Af Amer) 22 POC Glucose (mg/dL) 189 H Random Glucose 172 H Calcium 8.4 Phosphorus 3.7 Magnesium 1.8 Total Bilirubin 0.2 AST 27 ALT 31 Alkaline Phosphatase 90 Total Protein 5.7 L Albumin 2.9 L Globulin 2.8 Albumin/Globulin Ratio 1.1 09/09/17 07:44 WBC RBC Hgb Hct MCV MCH MCHC RDW Plt Count MPV Sodium Potassium Chloride Carbon Dioxide Anion Gap BUN Creatinine Est GFR ( Amer) Est GFR (Non-Af Amer) POC Glucose (mg/dL) 141 H Random Glucose Calcium Phosphorus Magnesium Total Bilirubin AST ALT Alkaline Phosphatase Total Protein Albumin Globulin Albumin/Globulin Ratio Fingerstick Blood Sugar Results: 189 Review of Systems - Review of Systems All systems: reviewed and no additional remarkable complaints except (as per HPI ) Critical Care Progress Note - Prophylaxis GI Prophylaxis GI: PPI - Nutrition Nutrition: Nutrition Category Date Time Status Altered GI/Hepatic Diet [DIET] Diets 09/07/17 Lunch Ordered Assessment/Plan - Assessment and Plan (Free Text) Assessment: This is a 57-year-old male with 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 Imaging of the head reveals 2 foci of acute intraparenchymal hemorrhage in the left temporal lobe in the right parietal lobe , that are resolving on follow-up CT. These foci demonstrate mild surrounding edema and mass-effect with no midline shift or herniation evident as read by radiologist. Per neurosurgery, no surgical intervention was required. Pt had 1 episode of seizures which was self limited, and has not had any since then. ICU was consulted for management of acute brain hemorrhage and monitoring of neurological status. Pt is managed with Keppra, and goal SBP of 130-150 mmHg as per neurosurgery. Plan: Neuro: - continue to monitor for mental status changes - continue keppra for seizure ppx as per neuro - ativan prn agitation - Maintain SBP in 130-150 range - Neurochecks every 2 hrs - Brain MRI (09/08) shows redemonstration of the 2.4 x 2.2 cm left anterior temporal love and 2.5 x 1.0 cm right posterior temporal lob early subacute hematomas with [id number] surrounding vasogenic edema without midline shift or herniation. No hydrocephalus. Focal cystic encephalomalacia and gliosis in both frontal lobes, worse on the right, sequela of remote injury. 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 Mild age- related global parenchymal volume loss. - No need for IV steroids or mannitol at this time, as per neurosurgery Recs - f/u neurosurgery recs - f/u neuro recs Cardio: - continue home amlodipine and hydralazine - continue hydralazine prn for BP management - maintain MAP>65 mmHg Pulm: - maintain spo2 >90% - HoB > 30 degrees GI: - altered GI/hepatic diet as per speech evaluation - protonix for GI ppx Renal: - creatinine is elevated; pt has ckd at baseline, but there may be a component of dehydration - maintain euvolemia - pt encouraged to drink fluids - avoid nephrotoxic medications Endo: - maintain euglycemia - continue ISS low - accuchecks ACHS Heme: - H/H remains stable ID: - pt has leukocytosis; likely reactive to intraparenchymal hematoma - 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 Pt might lack capacity to make decisions for himself. - psych consulted for evaluation - f/u psych recs PPX: Protonix for GI ppx; contraindication for vte ppx due to intraparenchymal hematoma Dispo: Pt is medically stable and safe for transfer to telemetry; PMD is aware and agrees with management Case discussed with attending physician, Dr. Martinez <Alejandro Martinez - Last Filed: 09/09/17 16:27> CCU Objective - Vital Signs / Intake & Output Vital Signs (Last 4 hours): Vital Signs Pulse Resp 09/09/17 12:47 81 13 09/09/17 12:46 77 18 09/09/17 12:45 75 18 09/09/17 12:44 76 16 09/09/17 12:43 73 17 09/09/17 12:42 75 19 09/09/17 12:41 71 15 09/09/17 12:40 74 15 09/09/17 12:39 78 16 09/09/17 12:38 85 26 H 09/09/17 12:37 101 H 21 09/09/17 12:36 91 H 18 09/09/17 12:35 90 43 H 09/09/17 12:34 93 H 21 09/09/17 12:33 94 H 29 H 09/09/17 12:31 78 20 09/09/17 12:30 78 39 H 09/09/17 12:29 76 13 09/09/17 12:28 80 09/09/17 12:27 79 18 09/09/17 12:26 94 H 17 09/09/17 12:25 83 Intake and Output (Last 8hrs): Intake & Output 09/09/17 09/09/17 09/09/17 06:59 14:59 22:59 Intake Total 400 Output Total 550 Balance -150 Weight 180 lb Intake: IV 100 Right Wrist 100 Oral 300 Output: Urine 550 Urethral (Barrientos) 550 - Medications Active Medications: Active Medications Generic Name Dose Route Start Last Admin Trade Name Freq PRN Reason Stop Dose Admin Amlodipine Besylate 10 mg 09/07/17 10:00 09/09/17 09:15 Norvasc PO 10 mg DAILY JAVIER Administration Artificial Tears 0 ml 09/06/17 22:00 09/09/17 14:35 Artificial Tears OD Not Given QID JAVIER Hydralazine HCl 100 mg 09/06/17 20:00 09/09/17 09:17 Apresoline PO 100 mg BID JAVIER Administration Hydralazine HCl 10 mg 09/06/17 19:58 09/06/17 21:05 Apresoline IVP 10 mg Q6 PRN Administration Systolic Blood Pressure > 150 Sodium Chloride 1,000 mls @ 80 mls/hr 09/09/17 16:15 Sodium Chloride 0.45% IV .[id number] [facility] Insulin Human Regular 0 units 09/08/17 11:30 09/08/17 22:08 Humulin R Low SC Not Given ACHS [facility] Protocol Levetiracetam 750 mg 09/09/17 18:00 09/09/17 15:38 Keppra PO 750 mg BID JAVIER Administration Lorazepam 1 mg 09/08/17 07:39 09/08/17 12:38 Ativan IM 1 mg Q6H PRN Administration Anxiety Protocol Mupirocin 0 gm 09/08/17 18:00 09/08/17 18:33 Bactroban Ointment NS 09/13/17 10:01 1 oin BID JAVIER Administration Pantoprazole Sodium 40 mg 09/10/17 07:30 Protonix Ec Tab PO ACB [facility] - Patient Studies Lab Studies: Lab Studies 09/09/17 09/09/17 09/09/17 Range/Units 11:47 07:44 05:45 WBC (4.5-11.0) 10^3/ul RBC (3.5-6.1) 10^6/uL Hgb (14.0-18.0) g/dL Hct (42.0-52.0) % MCV (80.0-105.0) fl MCH (25.0-35.0) pg MCHC (31.0-37.0) g/dl RDW (11.5-14.5) % Plt Count (120.0-450.0) 10^3/uL MPV (7.0-11.0) fl Sodium 144 (132-148) mmol/L Potassium 4.4 (3.6-5.0) mmol/L Chloride 113 H (98-107) mmol/L Carbon Dioxide 25 (21-33) mmol/L Anion Gap 11 (10-20) BUN 55 H (7-21) mg/dL Creatinine 3.0 H (0.8-1.5) mg/dl Est GFR ( Amer) 26 Est GFR (Non-Af Amer) 22 POC Glucose (mg/dL) 254 H 141 H (65-110) mg/dL Random Glucose 172 H (70-110) mg/dL Calcium 8.4 (8.4-10.5) mg/dL Phosphorus 3.7 (2.5-4.5) mg/dL Magnesium 1.8 (1.7-2.2) mg/dL Total Bilirubin 0.2 (0.2-1.3) mg/dL AST 27 (17-59) U/L ALT 31 (7-56) U/L Alkaline Phosphatase 90 (38-126) U/L Total Protein 5.7 L (5.8-8.3) g/dL Albumin 2.9 L (3.0-4.8) g/dL Globulin 2.8 gm/dL Albumin/Globulin Ratio 1.1 (1.1-1.8) 09/09/17 09/08/17 09/08/17 Range/Units 05:45 22:05 16:27 WBC 14.2 H D (4.5-11.0) 10^3/ul RBC 3.36 L (3.5-6.1) 10^6/uL Hgb 10.0 L (14.0-18.0) g/dL Hct 29.5 L (42.0-52.0) % MCV 87.8 (80.0-105.0) fl MCH 29.8 (25.0-35.0) pg MCHC 33.9 (31.0-37.0) g/dl RDW 16.4 H (11.5-14.5) % Plt Count 372 (120.0-450.0) 10^3/uL MPV 9.7 (7.0-11.0) fl Sodium (132-148) mmol/L Potassium (3.6-5.0) mmol/L Chloride (98-107) mmol/L Carbon Dioxide (21-33) mmol/L Anion Gap (10-20) BUN (7-21) mg/dL Creatinine (0.8-1.5) mg/dl Est GFR ( Amer) Est GFR (Non-Af Amer) POC Glucose (mg/dL) 189 H 272 H (65-110) mg/dL Random Glucose (70-110) mg/dL Calcium (8.4-10.5) mg/dL Phosphorus (2.5-4.5) mg/dL Magnesium (1.7-2.2) mg/dL Total Bilirubin (0.2-1.3) mg/dL AST (17-59) U/L ALT (7-56) U/L Alkaline Phosphatase (38-126) U/L Total Protein (5.8-8.3) g/dL Albumin (3.0-4.8) g/dL Globulin gm/dL Albumin/Globulin Ratio (1.1-1.8) 09/08/17 09/08/17 09/07/17 Range/Units 11:24 07:32 21:40 WBC (4.5-11.0) 10^3/ul RBC (3.5-6.1) 10^6/uL Hgb (14.0-18.0) g/dL Hct (42.0-52.0) % MCV (80.0-105.0) fl MCH (25.0-35.0) pg MCHC (31.0-37.0) g/dl RDW (11.5-14.5) % Plt Count (120.0-450.0) 10^3/uL MPV (7.0-11.0) fl Sodium (132-148) mmol/L Potassium (3.6-5.0) mmol/L Chloride (98-107) mmol/L Carbon Dioxide (21-33) mmol/L Anion Gap (10-20) BUN (7-21) mg/dL Creatinine (0.8-1.5) mg/dl Est GFR ( Amer) Est GFR (Non-Af Amer) POC Glucose (mg/dL) 300 H 284 H 257 H (65-110) mg/dL Random Glucose (70-110) mg/dL Calcium (8.4-10.5) mg/dL Phosphorus (2.5-4.5) mg/dL Magnesium (1.7-2.2) mg/dL Total Bilirubin (0.2-1.3) mg/dL AST (17-59) U/L ALT (7-56) U/L Alkaline Phosphatase (38-126) U/L Total Protein (5.8-8.3) g/dL Albumin (3.0-4.8) g/dL Globulin gm/dL Albumin/Globulin Ratio (1.1-1.8) 09/07/17 09/07/17 Range/Units 16:04 11:40 WBC (4.5-11.0) 10^3/ul RBC (3.5-6.1) 10^6/uL Hgb (14.0-18.0) g/dL Hct (42.0-52.0) % MCV (80.0-105.0) fl MCH (25.0-35.0) pg MCHC (31.0-37.0) g/dl RDW (11.5-14.5) % Plt Count (120.0-450.0) 10^3/uL MPV (7.0-11.0) fl Sodium (132-148) mmol/L Potassium (3.6-5.0) mmol/L Chloride (98-107) mmol/L Carbon Dioxide (21-33) mmol/L Anion Gap (10-20) BUN (7-21) mg/dL Creatinine (0.8-1.5) mg/dl Est GFR ( Amer) Est GFR (Non-Af Amer) POC Glucose (mg/dL) 329 H 250 H (65-110) mg/dL Random Glucose (70-110) mg/dL Calcium (8.4-10.5) mg/dL Phosphorus (2.5-4.5) mg/dL Magnesium (1.7-2.2) mg/dL Total Bilirubin (0.2-1.3) mg/dL AST (17-59) U/L ALT (7-56) U/L Alkaline Phosphatase (38-126) U/L Total Protein (5.8-8.3) g/dL Albumin (3.0-4.8) g/dL Globulin gm/dL Albumin/Globulin Ratio (1.1-1.8) Laboratory Results - last 24 hr 09/07/17 09/07/17 09/07/17 11:40 16:04 21:40 WBC RBC Hgb Hct MCV MCH MCHC RDW Plt Count MPV Sodium Potassium Chloride Carbon Dioxide Anion Gap BUN Creatinine Est GFR ( Amer) Est GFR (Non-Af Amer) POC Glucose (mg/dL) 250 H 329 H 257 H Random Glucose Calcium Phosphorus Magnesium Total Bilirubin AST ALT Alkaline Phosphatase Total Protein Albumin Globulin Albumin/Globulin Ratio 09/08/17 09/08/17 09/08/17 07:32 11:24 16:27 WBC RBC Hgb Hct MCV MCH MCHC RDW Plt Count MPV Sodium Potassium Chloride Carbon Dioxide Anion Gap BUN Creatinine Est GFR ( Amer) Est GFR (Non-Af Amer) POC Glucose (mg/dL) 284 H 300 H 272 H Random Glucose Calcium Phosphorus Magnesium Total Bilirubin AST ALT Alkaline Phosphatase Total Protein Albumin Globulin Albumin/Globulin Ratio 09/08/17 09/09/17 09/09/17 22:05 05:45 05:45 WBC 14.2 H D RBC 3.36 L Hgb 10.0 L Hct 29.5 L MCV 87.8 MCH 29.8 MCHC 33.9 RDW 16.4 H Plt Count 372 MPV 9.7 Sodium 144 Potassium 4.4 Chloride 113 H Carbon Dioxide 25 Anion Gap 11 BUN 55 H Creatinine 3.0 H Est GFR ( Amer) 26 Est GFR (Non-Af Amer) 22 POC Glucose (mg/dL) 189 H Random Glucose 172 H Calcium 8.4 Phosphorus 3.7 Magnesium 1.8 Total Bilirubin 0.2 AST 27 ALT 31 Alkaline Phosphatase 90 Total Protein 5.7 L Albumin 2.9 L Globulin 2.8 Albumin/Globulin Ratio 1.1 09/09/17 09/09/17 07:44 11:47 WBC RBC Hgb Hct MCV MCH MCHC RDW Plt Count MPV Sodium Potassium Chloride Carbon Dioxide Anion Gap BUN Creatinine Est GFR ( Amer) Est GFR (Non-Af Amer) POC Glucose (mg/dL) 141 H 254 H Random Glucose Calcium Phosphorus Magnesium Total Bilirubin AST ALT Alkaline Phosphatase Total Protein Albumin Globulin Albumin/Globulin Ratio Critical Care Progress Note - Nutrition Nutrition: Nutrition Category Date Time Status Altered GI/Hepatic Diet [DIET] Diets 09/07/17 Lunch Ordered Attending/Attestation - Attestation I have personally seen and examined this patient.: Yes I have fully participated in the care of the patient.: Yes I have reviewed all pertinent clinical information: Yes Notes (Text): 09/09/17 16:24 The patient was seen and examined at the bedside. Patient care was discussed with resident Medical records, lab studies were reviewed and management issues were discussed and formulated. Last 24H events reviewed. Agree with above treatment plans as outlined in ' note with addition of the following: Acute intraparenchimal bleed \ Seizure \ JORDAN on CKD \ HTN \ DM 2 \ -hemodynamic monitoring to maintain MAP>65 -o2 supplementation to maintain Spo2>90 Pao2>60; currently comfortable on NC -neurology and neurosurgery team f\u -f\u Bun\Cr and U\o -PO diet and aspiration precautions -ISS and BGM monitoring to maintain euglycemia -continue neuro checks -no surgical intervention as per neurosurgery team -continue Keppra and seizure precautions -PT\OT eval -DVT \ PUD prophylaxis CCM time 25min
[2017-09-09] MEDS: Insulin Reg-LOW-Coverage SC SCH ×2 (16:31→22:03)
[2017-09-09] MEDS: Mupirocin 2% Ointment 15 GM TUBE NS SCH (18:10)
[2017-09-09] MEDS: Sodium Chloride 0.45% 1,000 ML IV SCH (18:31)
[2017-09-09 20:02] LABS: IRON 37 ug/dL (45-180)
[2017-09-09 20:11] LABS: % IRON SATURATION 16 % (20-55); TOTAL IRON BINDING CAPACITY 226 ug/dL (261-462)
--- NOTE | 2017-09-10 02:46 | CON ---
DATE: 09/09/2017 REASON FOR CONSULTATION: Acute kidney injury, chronic kidney disease stage III, fall, intracranial hemorrhage. HISTORY OF PRESENT ILLNESS: A 57-year-old male known to me from outpatient followup. The patient was admitted on 09/06/2017 after a fall. The patient was brought by ambulance on 09/06/2017. He reported that he has been falling repeatedly for 2 days. He admitted to being tired and fatigued. He denied any fever, chills, nausea, vomiting or diarrhea at presentation. He denied any chest pain or shortness of breath. He had a CT of his head done in the ER, which showed acute intraparenchymal hemorrhage in the left temporal lobe in the middle cranial fossa measuring 1.8 x 2 x 2.1 cm. Additional hemorrhage was seen in the right parietal lobe measuring 1.5 x 1.7 cm. There was no mass effect seen on the initial CT. The patient was admitted to the ICU. The patient had a repeat CT scan on 09/07/2017. There was some slight increase in the size of the hematoma and there was some vasogenic edema seen. The patient had an MRI done yesterday which showed the 2 hematomas with mild to moderate surrounding edema without any midline shift. The patient was seen by Neurology. Since the patient had multiple areas of hemorrhages, Neurology impression was that this might be secondary to metastatic disease. His creatinine was 1.7 at the time of admission; today his creatinine is 3. PAST MEDICAL AND SURGICAL HISTORY: NIDDM, hypertension, acute kidney injury, chronic kidney disease stage III, last creatinine from my office in 01/2017 was 1.9, hyperlipidemia, CAD, PTCA and stents x2, DVT, diabetic retinopathy, nasal surgery, nasopharyngeal CA status post radiation, proteinuria, hematuria, kidney stones. FAMILY HISTORY: Noncontributory. SOCIAL HISTORY: No smoking, no alcohol use, no IV drug abuse. ALLERGIES: NO KNOWN DRUG ALLERGIES. MEDICATIONS: Hydralazine 10 mg IV every 6 p.r.n., hydralazine 100 b.i.d., Ativan 1 mg p.r.n., insulin, Keppra, amlodipine 10, Protonix 40. Unclear what medications the patient was taking at home. REVIEW OF SYSTEMS: Currently, the patient just keeps saying he wants to go home. He denies any nausea, vomiting, diarrhea. Denies any headaches. Denies any chest pains. Denies any palpitations. Daughter is at bedside. He keeps repeating he wants to go home. PHYSICAL EXAMINATION: GENERAL: Middle-aged male, sitting in chair in the ICU, agitated. VITAL SIGNS: Blood pressure 152/85, heart rate 81, respiratory rate 18, temperature 97.6. HEENT: Normocephalic, atraumatic, positive pallor. NECK: Supple, no JVD. LUNGS: Bilateral equal entry, bilateral equal expansion, no rales. CARDIAC: S1 and S2, regular rate and rhythm, no murmur, no rub. ABDOMEN: Obese, distended, soft, nontender, bowel sounds present. EXTREMITIES: No lower extremity edema. INTAKE AND OUTPUT: 1150/1200. LABORATORY DATA: WBC 14, hematocrit 29.5, hemoglobin 10, platelets 372. Sodium 144, potassium 4.4, chloride 113, CO2 of 25, BUN 55, creatinine 2, glucose 172, calcium 8.4, phosphorus 3.7, magnesium 1.8, albumin 2.9, globulin 2.8. Urinalysis, yellow, slightly cloudy, pH 6, specific than 1.025, protein greater than 300, glucose 100. Blood intact. Leukocyte esterase negative. ASSESSMENT: 1. Acute kidney injury superimposed on chronic kidney disease stage III, creatinine was 1.9 in 01/2017 as outpatient. 2. Recurrent episodes of acute kidney injury. 3. History of subdural hematoma/craniotomy in the past. 4. Current admission with multiple falls, multiple hemorrhages intracranially. 5. Altered mental status/seizures in the Emergency Room. 6. Hypertension. 7. Non-insulin dependent diabetes mellitus. 8. Proteinuria/hematuria/diabetic nephropathy suspect. 9. History of diabetic retinopathy. 10. Coronary artery disease, history of percutaneous transluminal coronary angioplasty and stent. 11. Anemia of chronic disease. PLAN: 1. Etiology of acute kidney injury at this time is unclear, suspect mild prerenal azotemia. 2. Osmotic dehydration ? secondary to hyperglycemia. 3. Dehydration. 4. Check hemoglobin A1c. 5. Start hypotonic IV fluids. 6. Continue to monitor closely in the ICU. 7. Neurology/neurosurgical followup. 8. Case discussed with the patient and daughter at bedside. 9. Case discussed with ICU staff. 10. Check phosphorus, intact PTH. 11. Check hemoglobin A1c. 12. Check iron, TIBC, ferritin. More than 35 minutes spent in the care of this critically ill patient. Irais Corona MD
[2017-09-10] MEDS: Insulin Reg-LOW-Coverage SC SCH ×4 (07:30→21:44)
[2017-09-10] MEDS: Mupirocin 2% Ointment 15 GM TUBE NS SCH ×4 (11:00→17:20)
[2017-09-10] MEDS: Sodium Chloride 0.45% 1,000 ML IV SCH ×2 (11:10→17:20)
[2017-09-10] MEDS: Aritificial Tears (15ml) OD SCH ×4 (11:37→17:20)
[2017-09-10] MEDS: Pantoprazole 40 mg EC Tab PO SCH (11:46)
--- NOTE | 2017-09-10 12:11 | CP.PCM.PN ---
Subjective - Date & Time of Evaluation Date of Evaluation: 09/10/17 Time of Evaluation: 11:55 - Subjective Subjective: less agitated today, NAD Objective - Vital Signs/Intake and Output Vital Signs (last 24 hours): Temp Pulse Resp BP Pulse Ox 97.7 F 80 13 136/73 98 09/10/17 00:00 09/10/17 11:46 09/09/17 12:47 09/10/17 11:55 09/09/17 00:00 Intake and Output: 09/10/17 09/10/17 06:59 18:59 Intake Total 250 Output Total 1100 Balance -850 - Medications Medications: Current Medications Amlodipine Besylate (Norvasc) 10 mg PO DAILY COUNT INCLUDES THE [facility] Last Admin: 09/10/17 11:55 Dose: 10 mg Artificial Tears (Artificial Tears) 0 ml OD QID COUNT INCLUDES THE [facility] Last Admin: 09/10/17 11:37 Dose: 1 drop Hydralazine HCl (Apresoline) 100 mg PO BID COUNT INCLUDES THE [facility] Last Admin: 09/10/17 11:46 Dose: 100 mg Hydralazine HCl (Apresoline) 10 mg IVP Q6 PRN PRN Reason: Systolic Blood Pressure > 150 Last Admin: 09/06/17 21:05 Dose: 10 mg Sodium Chloride (Sodium Chloride 0.45%) 1,000 mls @ 80 mls/hr IV .[id number] COUNT INCLUDES THE [facility] Last Admin: 09/10/17 11:10 Dose: Not Given Insulin Human Regular (Humulin R Low) 0 units SC ACHS COUNT INCLUDES THE [facility] PRN Reason: Protocol Last Admin: 09/10/17 11:42 Dose: Not Given Levetiracetam (Keppra) 750 mg PO Q12 COUNT INCLUDES THE [facility] Last Admin: 09/10/17 11:44 Dose: 750 mg Lorazepam (Ativan) 1 mg IM Q6H PRN; Protocol PRN Reason: Anxiety Last Admin: 09/09/17 20:00 Dose: 1 mg Mupirocin (Bactroban Ointment) 0 gm NS BID COUNT INCLUDES THE [facility] Stop: 09/13/17 10:01 Last Admin: 09/10/17 11:38 Dose: 1 oin Pantoprazole Sodium (Protonix Ec Tab) 40 mg PO ACB COUNT INCLUDES THE [facility] Last Admin: 09/10/17 11:46 Dose: 40 mg - Labs Labs: 09/09/17 05:45 09/09/17 05:45 PT 12.3 SECONDS (9.4-12.5) 09/06/17 17:30 INR 1.08 (0.93-1.08) 09/06/17 17:30 APTT 32.9 Seconds (25.1-36.5) 09/06/17 17:30 - Respiratory Exam Respiratory Exam: Clear to Ausculation Bilateral, NORMAL BREATHING PATTERN - Cardiovascular Exam Cardiovascular Exam: REGULAR RHYTHM - GI/Abdominal Exam GI & Abdominal Exam: Soft, Normal Bowel Sounds - Extremities Exam Extremities Exam: Full ROM, Pedal Edema - Neurological Exam Neurological Exam: Alert, Awake - Psychiatric Exam Psychiatric exam: Flat Affect - Skin Skin Exam: Dry, Warm Assessment and Plan (1) Intracranial hemorrhage Status: Acute - Assessment and Plan (Free Text) Plan: await psych consult, PT/SW for disposition
--- NOTE | 2017-09-10 15:27 | PN ---
DATE: 09/10/2017 SUBJECTIVE: The patient is currently seen in CCU, room 7, but the patient is ambulating around the CCU. He states that he wants to go home. He just has been seen by Psychiatry. He has apparently been cleared by Neurosurgery for any type of surgical procedure. The patient has sustained an intracranial bleed secondary to a recent fall. The patient's BUN and creatine are above his best baseline levels, but within his overall baseline. MEDICATIONS: Medication list reviewed. The patient is on hydralazine, artificial tears, Ativan p.r.n., mupirocin, sliding scale insulin, Keppra, Norvasc, Protonix, and he was on IV fluids half-normal saline 80 mL an hour, these apparently were discontinued as the patient is walking around without an IV. PHYSICAL EXAMINATION: INTAKE AND OUTPUT: Intake is 800, output is 1600. VITAL SIGNS: Blood pressure 136/73, temperature 97.7, respiratory rate of 13 with a pulse of 80. HEENT: Shows him to be normocephalic, atraumatic. Conjunctiva are pale. Sclera nonicteric. NECK: Supple. No neck vein distention. CHEST: Clear to auscultation and percussion. No rales, rhonchi or wheezing. CARDIOVASCULAR: Shows a regular rate and rhythm without murmurs, rubs, or gallops. ABDOMEN: Soft. Mild obesity. Minimal distention. Nontender. Bowel sounds are normal. No rebound or guarding. EXTREMITIES: Show no lower extremity cyanosis, clubbing or edema. LABORATORY DATA AND IMAGING: Repeat MRI of the brain done on 09/08 shows re-demonstration of the 2.4 x 2.2 left anterior temporal lobe and 2.5 x 1 cm right posterior temporal lobe early subacute hematomas with nzto-[id number] surrounding vasogenic edema without midline shift or herniation, no hydrocephalus. There are old lacunar infarcts and there is evidence for osteomalacia of both frontal lobes. Labs: CBC: White blood cell count 14.2, hemoglobin 10 with a platelet count of 372,000. Chemistries done yesterday showed a BUN of 55 with a creatinine of 3. No blood work is available from today. CO2 was 25, potassium 4.4. Last glucose is 254. Calcium, phosphorous, magnesium levels were all normal. Liver enzymes are normal. Albumin is 2.9. ASSESSMENT: 1. History of chronic kidney disease, stage III. The patient has a mild acute rise in BUN and creatinine above his lowest baseline levels, but his BUN and creatinine fall within his overall baseline over the last one to two years. 2. History of recurrent episodes of acute kidney injury, it has documented in the medical record. 3. Past history of subdural hematomas, craniotomy in the past. The patient apparently has multiple falls and presented with an intracranial hemorrhage once again. He was cleared surgically by Neurosurgery. He is being followed closely for any sequelae from the bleed. He remains on Keppra. The patient has an altered mental status with seizures in the emergency room. 4. History of hypertension. Blood pressure controlled on present medical therapy. 5. History of [id number]-[id number] diabetes mellitus with likely diabetic nephropathy. 6. History of diabetic retinopathy. 7. History of atherosclerotic heart disease status post percutaneous transluminal coronary angioplasty and stent. 8. History of anemia, likely secondary to chronic kidney disease. 9. History of severe agitation and anxiety. The patient was recently seen by Psychiatry and it was felt that he has not cleared for discharge home or to be left without one-on-one supervision. PLAN: 1. The patient insists on leaving the hospital today. Discussed with the patient the need to stay in the hospital a bit longer. 2. IV fluids are out. Increase oral hydration. 3. Need to follow daily labs. 4. Likely, we will not be able to obtain accurate I's and O's. 5. Continued followup with Neurology and appreciate Psychiatry followup. 6. Case was discussed in detail with the patient's psychiatrist to assist interviewing him at this point in time. Also discussed with CCU nurses. 7. From a Renal standpoint, it would be advisable for the patient stay in the hospital longer to hopefully allow him to lower his BUN and creatinine down to his baseline range. Baseline BUN's are in the low 30 range with a baseline creatinine of 1.7. Greater than 35 minutes spent in the care of this patient. Nicolas Anderson MD
--- NOTE | 2017-09-10 18:40 | CON ---
DATE: 09/10/2017 HISTORY OF PRESENT ILLNESS: Shortly, the patient is a 57-year-old male with multiple medical issues including nasopharyngeal carcinoma, status post radiation therapy and chemotherapy; history of coronary artery disease, status post two stents; diabetes; hypertension; dyslipidemia; history of deep venous thrombosis. The patient has Chowdhury palsy. The patient was admitted into ICU status post fall and fatigue for 2 days. Imaging of the head reveals two foci of acute intraparenchymal hemorrhages in the left temporal lobe and right parietal lobe with surrounding edema and mass effect with no midline shift. The patient also had seizure in the emergency room. The patient currently in ICU. Psych consult was called for evaluation of capacity to leave against medical advice. Medical advice is telemetry unit with potential transfer to subacute rehab, but the patient refused to stay in the hospital, wants to leave immediately. This automatic typewriter inspector reviewed the previous history for this patient. The patient has history of gait ataxia, history of strokes. The patient has never been evaluated by psychiatrist in the past. The patient has multiple medical issues. This automatic typewriter inspector discussed case with the nursing staff as well as medical physics researcher. As per collateral information from the medical staff, the patient has episodes of agitation, not willing to stay in the hospital. The patient received 2 mg of haloperidol, it was yesterday at 05:30 because the patient was agitated and did not want to stay in the hospital. This automatic typewriter inspector also reviewed notes from the physical therapy and physical therapy recommended subacute rehab, but the patient does not want to go there. From the legal perspective, the patient does not have power of industrial relations representative and the patient is the one who is making decisions for himself. The patient lives with a girlfriend//significant other, Bella and her phone number is [phone]. The patient gave permission for collateral information. Going back to the patient's presentation, the patient was seen and examined today. The patient presented to be alert. The patient initially said that right now is 2012, but corrected himself and said that now is 2017. The patient knows that today is August and Saturday, but when this automatic typewriter inspector asked about date, the patient was keep repeating that it was Saturday. This automatic typewriter inspector gave an option at the beginning of the month, middle of the month, or end of the month. The patient keep repeating that today is Saturday. The patient said that he was admitted on ICU status post fall. The patient obviously has abrasions on both of his knees and his lower extremities are swollen. The patient said that it was his first fall, but it is not true. The patient has history of falls. The patient does not have understanding that he had intracranial bleeding and he had no clue for his results of the CT scan as well as MRI's result. The patient said that medical team is clearing him and he was just waiting for this automatic typewriter inspector evaluation, which is not true. The patient was not able to process the information about the dangerousness of his falls and his consequences of intracranial hemorrhages. The patient was keep repeating that he wants to go home. The patient does not have factual understanding of his diagnosis. The patient was not able to comprehend potential risk of leaving against medical advice as well as consequences of being without treatment. The patient does not have insight and appreciation. The patient has no reasoning ability. The patient was able to indicate preferences that he wants to go home, but it seems to be not logical. The patient said that he wants to go home because "I just want to relax there." The patient was not able to explain why he cannot relax in the hospital. Based on this presentation, the patient seems to be lack capacity to leave against medical advice. The patient denied history of past psychiatric history. The patient denied that he has history of being depressed. The patient denied hearing voices or seeing things, but obviously processing as well as cognitive functioning seems to be far from ideal. PHYSICAL EXAMINATION: VITAL SIGNS: This automatic typewriter inspector reviewed vital signs, seem to be stable. Pulse is 80, blood pressure 136/73, oxygen saturation is 99%. MEDICATIONS: Reviewed. Norvasc, Humulin, Keppra, Ativan, Bactroban, Protonix, and sodium chloride. LABORATORY DATA: Reviewed. Yesterday; WBCs were elevated at 14.2, hemoglobin and hematocrit 10 and 29.5. Coagulation reviewed. Chemistry reviewed. The patient is on contact isolation for MRSA in his nose. The patient was seen by Dr. Corona by Neurology and old notes reviewed. Brain MRI from 09/08, showed 2.4 to 2.2 cm left anterior temporal lobe and 2.5 to 1 cm right posterior temporal lobe early subacute hematomas with [id number] surrounding vasogenic edema without midline shift or herniation. No hydrocephalus. Focal cystic encephalomalacia and gliosis in both frontal lobes, worse on the right sequela or of the remote injury. Old lacunar infarcts in the centrum semiovale and martinez radiata. Mild age-related global parenchymal volume loss. MENTAL STATUS EXAMINATION: As this automatic typewriter inspector described above, the patient was alert. The patient knows that he is in the hospital. The patient knows that he is status post fall, but was not aware of the intracranial bleeding and was not able to process the information about these diagnoses. Mood described "I am fine, I want to go home." Affect was constricted. Thought process: Very concrete. Thought content: The patient denied hearing voices, denied seeing things, denied paranoid ideation. The patient denied thoughts of harming himself or others. Denied intents or plan. Insight and judgment seem to be impaired. Impulses are unpredictable. IMPRESSION: Most likely, the patient is in delirium stage. Also, newly diagnosed bleeding status post fall. The patient has leukocytosis. PLAN: The patient lacks capacity to make decisions about leaving against medical advice. Medical team is aware. Suggested family meeting with the patient's /girlfriend/significant other and explained the rationale behind decision for the medical team. In regards of the medication, the patient could have Ativan as needed, it could be continued. Medical team needs to talk to the family as well as with the patient and the patient needs to continue treatment as suggested. It took more than 45 minutes to take care of that patient. Thank you very much for letting me participate in care of your patient. Gretel Jeronimo MD
[2017-09-10 22:09] VITALS: RESP 20
[2017-09-11 07:22] LABS: HEMOGLOBIN 9.6 g/dL (14.0-18.0); MEAN CELL VOLUME 88.9 fl (80.0-105.0); MEAN CORPUSCULAR HEMOGLOBIN 29.6 pg (25.0-35.0); MEAN CORPUSCULAR HGB CONC 33.3 g/dl (31.0-37.0); MEAN PLATELET VOLUME 10.3 fl (7.0-11.0); RBC 3.24 10^6/uL (3.5-6.1); RED CELL DISTRIBUTION WIDTH 16.8 % (11.5-14.5); WHITE BLOOD COUNT 7.7 10^3/ul (4.5-11.0)
[2017-09-11 07:31] VITALS: BP 147/90; PULSE 96; TEMP 98.3; O2SAT 98
[2017-09-11 07:38] LABS: ALB/GLOB RATIO 1.1 (1.1-1.8); ALBUMIN 2.8 g/dL (3.0-4.8); CALCIUM 8.4 mg/dL (8.4-10.5)
[2017-09-11] MEDS: Insulin Reg-LOW-Coverage SC SCH (08:28)
[2017-09-11] MEDS: Pantoprazole 40 mg EC Tab PO SCH (09:08)
--- NOTE | 2017-09-11 16:22 | DS ---
HOSPITAL COURSE: The patient is a 57-year-old male, admitted through the emergency department on 09/06/[address] scan of the head showed two areas of acute intraparenchymal hemorrhage in the left temporal lobe and right parietal lobe. The patient was admitted to the Intensive Care Unit, was seen by Neurosurgery as well as Neurology. He had an uneventful course in the CCU and was transferred to the medical-surgical floor in stable condition yesterday. PHYSICAL EXAMINATION: VITAL SIGNS: Blood pressure 147/90, temperature 98.3, pulse 96, respiratory rate 20. LUNGS: Clear. HEART: Regular rate and rhythm. ABDOMEN: Soft, nontender. Bowel sounds are normoactive. NEUROLOGICAL: The patient is awake and oriented x3 without focal sensory or motor deficits. Gait is slightly ataxic. SKIN: Warm and dry. LABORATORY DATA: WBC 7.7, hemoglobin 9.6, hematocrit 28.8. Sodium 147, potassium 4.3, chloride 115, CO2 of 25, BUN 54, creatinine 2.4, glucose 150. IMPRESSION: 1. Intracranial bleed, status post head trauma/fall. 2. Type 2 diabetes mellitus. 3. Coronary artery disease. 4. Hypertension. 5. Chronic kidney disease. 6. History of craniotomy, status post subdural hematoma. PLAN: The patient will be discharged to home in stable condition on the following medications, amlodipine 10 mg daily, simvastatin 20 mg daily, Lexapro 20 mg daily, cetirizine 10 mg daily. The patient will be maintained on a consistent carbohydrate heart-healthy diet. Activities ad libitum. He will be seen in my office within the next 2-3 days. FENG Thompson MD
--- NOTE | 2017-09-11 16:59 | PN ---
DATE: 09/11/2017 SUBJECTIVE: The patient is seen sitting in chair. He is awake, he is alert, and he is comfortable. PHYSICAL EXAMINATION: GENERAL: Middle-aged male sitting in chair. VITAL SIGNS: Blood pressure 147/90, heart rate 96, respiratory rate 20, and temperature 98.3. HEENT: Normocephalic, atraumatic, positive pallor. NECK: Supple, no JVD. LUNGS: Bilateral equal air entry, bilateral equal expansion. CARDIAC: S1 and S2, regular rate and rhythm, no murmur, no rub. ABDOMEN: Obese, distended, soft, nontender, bowel sounds present. EXTREMITIES: No lower extremity edema. INTAKE AND OUTPUT: 800/1600 LABORATORY DATA: WBC 7.7, hemoglobin 9.6, hematocrit 29, and platelets 389. Sodium 147, potassium 4.3, chloride 115, CO2 of 25. BUN 54, creatinine 2.4. Glucose 150. Calcium 8.4, phosphorus 3.3, and magnesium 1.8. Urinalysis from 09/06, showing greater than 300 of protein, trace blood, nitrite negative, leukocyte esterase negative. CURRENT MEDICATIONS: Hydralazine 100 b.i.d., Ativan, Bactroban, insulin, Keppra, amlodipine 10, and Protonix. ASSESSMENT AND PLAN: 1. Acute kidney injury superimposed on chronic kidney disease stage III, resolving acute kidney injury. 2. Recurrent episodes of acute kidney injury. 3. History of subdural hematoma and craniotomy in the past. 4. Admitted with multiple falls and found to have multiple intracranial punctate hemorrhages. 5. Hypertension. 6. Ptz-mvdszpg-iuuseukio diabetes mellitus. 7. Diabetic retinopathy. 8. Coronary artery disease, percutaneous transluminal coronary angioplasty and stent. 9. History of nasopharyngeal cancer, status post chemotherapy and radiation. 10. Anemia of chronic kidney disease. PLAN: 1. Renal function is improving. His baseline creatinine is around 1.8 to 1.9. Discussed with the patient and son who is at bedside the importance of outpatient followup with Nephrology. 2. Needs better blood pressure control, can be tuned as outpatient. 3. Needs better glycemic control. 4. No objection to discharge. Irais Corona MD
--- NOTE | 2017-09-11 18:22 | PN ---
DATE: 07/12/2017 HISTORY OF PRESENT ILLNESS: This is a 57-year-old male with past medical history of nasopharyngeal carcinoma and coronary artery disease with two stents, diabetes, hypertension, and Chowdhury palsy also, admitted with right temporoparietal bleed and was seen by Dr. Irizarry and requested by primary doctor to see the patient and the patient is doing better. ALLERGIES: NO KNOWN DRUG ALLERGY. MEDICATIONS: Norvasc, hydralazine, Keppra, insulin, and lisinopril. PHYSICAL EXAMINATION: HEENT: Normocephalic and atraumatic. NECK: Supple. NEUROLOGIC: Awake and oriented to self. Cranial nerves II through XII were tested. Pupils reactive. EOM intact. Visual field full. Weakness of the left side. Left upper extremity and left lower extremity weaker than the right. The patient is awake and oriented. Follow simple commands. Spontaneous movement of the extremities noted. Deep tendon reflexes 1+. Plantars are downgoing. The patient was seen by a neurosurgeon, Dr. Willson. No intervention was needed. Continue present management. We will follow up. Ryley Laurent MD
== END 2017-09-11 13:11 | disposition home or self-care (01) | DRG 83 ==
LOC: ED 15:15 → ERH 18:28 → CCU 19:46 → 5RNO 09-10 17:16
PROVIDERS: ADMIT Internal Medicine; ATTEND Internal Medicine
DX: S06.309A Unspecified focal traumatic brain injury with loss of consciousness of unspecified duration, initial encounter (principal); N17.9 Acute kidney failure, unspecified; N18.3 Chronic kidney disease, stage 3 (moderate); D63.1 Anemia in chronic kidney disease; G51.0 Bell's palsy; S80.211A Abrasion, right knee, initial encounter; S80.212A Abrasion, left knee, initial encounter; K21.9 Gastro-esophageal reflux disease without esophagitis; J45.909 Unspecified asthma, uncomplicated; I25.10 Atherosclerotic heart disease of native coronary artery without angina pectoris; I12.9 Hypertensive chronic kidney disease with stage 1 through stage 4 chronic kidney disease, or unspecified chronic kidney disease; E11.22 Type 2 diabetes mellitus with diabetic chronic kidney disease; E11.319 Type 2 diabetes mellitus with unspecified diabetic retinopathy without macular edema; R29.6 Repeated falls; E11.21 Type 2 diabetes mellitus with diabetic nephropathy; G40.909 Epilepsy, unspecified, not intractable, without status epilepticus; E78.5 Hyperlipidemia, unspecified; W19.XXXA Unspecified fall, initial encounter; Z86.718 Personal history of other venous thrombosis and embolism; Z85.818 Personal history of malignant neoplasm of other sites of lip, oral cavity, and pharynx; Z95.5 Presence of coronary angioplasty implant and graft; Z92.21 Personal history of antineoplastic chemotherapy; Z92.3 Personal history of irradiation; Z87.891 Personal history of nicotine dependence; Z79.84 Long term (current) use of oral hypoglycemic drugs

== ENCOUNTER 2017-09-29 04:40 | Inpatient (IN) | payer OTHER ==
[2017-09-29 04:43] VITALS: BMI 26.9
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
[2017-09-29 05:33] LABS: HEMOGLOBIN 10.4 g/dL (14.0-18.0); MEAN CELL VOLUME 89.3 fl (80.0-105.0); MEAN CORPUSCULAR HGB CONC 33.5 g/dl (31.0-37.0); RBC 3.47 10^6/uL (3.5-6.1); RED CELL DISTRIBUTION WIDTH 15.7 % (11.5-14.5); WHITE BLOOD COUNT 10.3 10^3/ul (4.5-11.0)
[2017-09-29 05:38] LABS: INR 0.96; PARTIAL THROMBOPLASTIN TIME 34.8 Seconds (25.1-36.5)
[2017-09-29 05:54] LABS: ALB/GLOB RATIO 1.1 (1.1-1.8); ALBUMIN 3.5 g/dL (3.0-4.8); CALCIUM 8.6 mg/dL (8.4-10.5)
[2017-09-29 05:55] LABS: TROPONIN I 0.04 ng/mL
--- NOTE | 2017-09-29 06:09 | CT ---
EXAM: CT Head Without Intravenous Contrast CLINICAL HISTORY: 57 years old, male; Signs and symptoms; Other: Seizure TECHNIQUE: Axial computed tomography images of the head/brain without intravenous contrast. All CT scans at this facility use at least one of these dose optimization techniques: automated exposure control; mA and/or kV adjustment per patient size (includes targeted exams where dose is matched to clinical indication); or iterative reconstruction. Coronal and sagittal reformatted images were created and reviewed. COMPARISON: CT - HEAD W/O CONTRAST 2017-09-07 05:09, MR - BRAIN WITHOUT CONTRAST 09/08/2017 12:57:07 PM FINDINGS: Brain: Stable hypodense encephalomalacia in bilateral anteroinferior frontal lobes, right greater than left. No acute infarction, masses or acute hemorrhage is seen. No acute intracranial abnormality is identified. Chronic lacunar infarction is seen in the right thalamus.Examination of the posterior fossa demonstrates no significant abnormality. No significant white matter disease. Ventricles: The ventricular system is not dilated and is appropriate for the patient's age. Bones/joints: Right pterional craniotomy is again noted. No acute fracture. Soft tissues: Unremarkable. Vasculature: There is atherosclerotic calcification of the bilateral cavernous carotid arteries. Sinuses: Retention cyst in the right maxillary sinus. Mastoid air cells: Unremarkable as visualized. No mastoid effusion. Orbits: Chronic posttraumatic deformity involving the medial wall of the right orbit. Other findings: Examination reveals unremarkable interval evolution of the left temporal and right parietal temporal hemorrhagic contusions noted on the previous study. No new hemorrhage is seen. IMPRESSION: 1. Examination reveals unremarkable interval evolution of the left temporal and right parietal temporal hemorrhagic contusions noted on the previous study. No new hemorrhage is seen. 2. Stable hypodense encephalomalacia in bilateral anteroinferior frontal lobes, right greater than left. 3. No acute infarction, masses or acute hemorrhage is seen. No acute intracranial abnormality is identified.
[2017-09-29] MEDS ORDERED: levETIRAcetam 1,000 MG in Sodium Chloride 0.9% 100 ML IV ONE (06:11)
[2017-09-29] MEDS ORDERED: Sod Polystyrene Sulf 15 gm/60 ml Susp PO ONE (06:13)
[2017-09-29] MEDS ORDERED: Sodium Chloride 0.9% 1,000 ML IV STA (06:26)
--- NOTE | 2017-09-29 11:48 | HP ---
Copied To: FENG Thompson MD Attending MD: FENG Thompson MD ADMISSION HISTORY AND PHYSICAL HISTORY OF PRESENT ILLNESS: The patient is a 57-year-old male, admitted through the emergency room with a witnessed seizure. The patient is approximately 2-3 weeks status post intracranial hemorrhage and is now admitted for a witnessed seizure. PAST MEDICAL HISTORY: The patient's past medical history includes coronary artery disease, status post stent placement x2, history of hypercholesterolemia, the patient of chronic renal insufficiency and hypertension. Past history includes history of DVT and nasopharyngeal carcinoma, status post radiation treatment. He has a history also of type 2 diabetes mellitus and asthma as well as Chowdhury's palsy. CURRENT MEDICATIONS: Include Zocor 20 mg, amlodipine 10 mg, Januvia 50 mg, Lasix 20 mg daily. FAMILY HISTORY: Noncontributory. ALLERGIES: THE PATIENT HAS NO KNOWN DRUG ALLERGIES. SOCIAL HISTORY: The patient has no history of alcohol, tobacco use. He has a history of depression and bipolar disorder. REVIEW OF SYSTEMS: The patient is currently postictal, somewhat combative and review of systems is unobtainable. PHYSICAL EXAMINATION: GENERAL: The patient is a well-developed, well-nourished male, somewhat agitated and combative. VITAL SIGNS: Blood pressure 170/78, pulse 107, temperature 97.4, respiratory rate 20. HEENT: The patient is status post craniotomy for a subdural hematoma in the past. Pupils are equal, round, reactive to light. Extraocular movements are intact. NECK: Supple. No thyromegaly. No carotid bruit. LUNGS: Clear. HEART: Regular rate and rhythm. ABDOMEN: Soft, nontender. Bowel sounds are normoactive. EXTREMITIES: Without cyanosis, clubbing or edema. NEUROLOGICAL: The patient is awake, somewhat combative and confused. SKIN: Warm and dry. LABORATORY DATA: WBCs 10.3, hemoglobin 10.4, hematocrit 31. Sodium 142, potassium 5.3, chloride 109, CO2 of 24, BUN 39, creatinine 1.6, glucose is 259. LDH is 802. CPK 107. Troponin is 0.04. CT scan of the head shows no acute bleeds or infarcts. IMPRESSION: 1. Seizure disorder, status post intracranial hemorrhage. 2. Coronary artery disease, status post stent placement x2. 3. Hypertension. 4. Chronic kidney disease. 5. History of craniotomy, status post subdural hematoma. 6. Asthma. PLAN: The patient will be admitted to the remote telemetry unit. He has been started on IV Keppra. I will obtain neurology consultation, Dr. Laurent. He has been given Ativan for agitation. FENG Thompson MD
--- NOTE | 2017-09-29 12:40 | RAD ---
Date of service: 09/29/2017 HISTORY: seizure COMPARISON: Comparison chest 09/14/2017 FINDINGS: LUNGS: Poor inspiration with low lung volumes, crowded bronchovascular markings and mild bibasilar atelectasis. Note that the left hemidiaphragm is not well delineated which could be due to patient positioning however possibility of left lower lobe consolidation and effusion to be excluded. PLEURA: No significant pleural effusion identified, no pneumothorax apparent. CARDIOVASCULAR: Heart appears enlarged OSSEOUS STRUCTURES: No significant abnormalities. VISUALIZED UPPER ABDOMEN: Normal. OTHER FINDINGS: None. IMPRESSION: Poor inspiration with low lung volumes, crowded bronchovascular markings and mild bibasilar atelectasis. Note that the left hemidiaphragm is not well delineated which could be due to patient positioning however possibility of left lower lobe consolidation and effusion to be excluded.
[2017-09-29] MEDS ORDERED: Dextrose 50% SYRINGE Inj (50 ml) IV PRN (15:02)
--- NOTE | 2017-09-29 15:28 | CARD ---
APPROVED REPORT Date of service: 09/29/2017 EKG Measurement Heart [id number] <Conclusion> Normal sinus rhythm Right bundle branch block Minimal voltage criteria for LVH, may be normal variant Abnormal ECG
[2017-09-29] MEDS: Insulin Reg-LOW-Coverage SC SCH ×2 (18:45→22:00)
[2017-09-30] MEDS: Insulin Reg-LOW-Coverage SC SCH ×4 (08:14→21:46)
--- NOTE | 2017-09-30 12:04 | CP.PCM.PN ---
Subjective - Date & Time of Evaluation Date of Evaluation: 09/30/17 Time of Evaluation: 11:00 - Subjective Subjective: lethargic, arousable, less agitated Objective - Vital Signs/Intake and Output Vital Signs (last 24 hours): Temp Pulse Resp BP Pulse Ox 97.1 F L 82 20 171/100 H 100 09/29/17 17:14 09/30/17 08:12 09/30/17 08:12 09/30/17 08:12 09/30/17 08:12 - Medications Medications: Current Medications Dextrose (Dextrose 50% Inj) 0 ml IV STAT PRN; Protocol PRN Reason: Hypoglycemia Protocol Dextrose (Dextrose 5% In Water 1000 Ml) 1,000 mls @ 0 mls/hr IV .Q0M PRN; Protocol; Per Protocol PRN Reason: Hypoglycemia Protocol Insulin Human Regular (Humulin R Low) 0 units SC ACHS JAVIER PRN Reason: Protocol Last Admin: 09/30/17 08:14 Dose: Not Given Levetiracetam (Keppra) 500 mg PO BID JAVIER Lorazepam (Ativan) 1 mg PO TID PRN; Protocol PRN Reason: Agitation - Labs Labs: PT 11.0 SECONDS (9.4-12.5) 09/29/17 05:10 INR 0.96 09/29/17 05:10 APTT 34.8 Seconds (25.1-36.5) 09/29/17 05:10 - Respiratory Exam Respiratory Exam: Clear to Ausculation Bilateral, NORMAL BREATHING PATTERN - Cardiovascular Exam Cardiovascular Exam: REGULAR RHYTHM - GI/Abdominal Exam GI & Abdominal Exam: Soft, Normal Bowel Sounds - Extremities Exam Extremities Exam: Normal Inspection - Neurological Exam Neurological Exam: Altered - Psychiatric Exam Psychiatric exam: Agitated - Skin Skin Exam: Dry, Warm Assessment and Plan (1) New onset seizure Status: Acute (2) Intracranial hemorrhage Status: Resolved - Assessment and Plan (Free Text) Plan: taper Ativan, neuro consult, start PO Keppra, restart amlodipine for elevated bp
--- NOTE | 2017-09-30 14:50 | CON ---
Copied To: Michael Laurent MD Attending MD: Michael Laurent MD DATE: 09/30/2017 CHIEF COMPLAINT: Seizure. HISTORY OF PRESENT ILLNESS: This is a 57-year-old male with history of nasopharyngeal carcinoma, status post radiation, hypertension, coronary artery disease, status post stents, hyperlipidemia and DVT, Chowdhury palsy, type 2 diabetes mellitus, chronic kidney disease with recent intracranial hemorrhage and parenchymal with history of seizure while he was in the hospital on in 08/2017 for intracranial hemorrhage with a seizure. At that time, he was on Keppra, but was not discharged on any Keppra and the patient was not taking any antiepileptics prior. He came in for breakthrough seizures which was noticed by his fiancee, but denies any tongue biting. Currently, he is mildly postictal. CAT scan of the head showed stable evolution of the left parietotemporal hemorrhagic contusions which was noted on the previous study, stable hypodense encephalomalacia of bilateral anterior frontal lobes, right great than left and no acute hemorrhage seen or masses. Currently, the patient is moving all extremities spontaneously, withdraws to localized and noxious stimulus. Light touch is intact. The patient is currently on Keppra 500 mg p.o. b.i.d. for seizure prophylaxis. He was given 1 g of Keppra in the ER x1 dose. PAST MEDICAL HISTORY: As above. SOCIAL HISTORY: No illicit drug use, smoking or EtOH abuse. REVIEW OF SYSTEMS: Fourteen-point review of systems negative except as per the HPI. MEDICATIONS: Reviewed by nurse per reconciliation sheet. FAMILY HISTORY: Noncontributory. LABORATORY DATA: Sodium is 142, potassium 5.3, chloride 109, carbon dioxide 24, BUN of 39, creatinine of 1.6, random glucose 259. PHYSICAL EXAMINATION: VITAL SIGNS: Temperature afebrile, pulse rate 80, blood pressure 171/100, respiratory rate 20, oxygen saturation 100% via room air. GENERAL: The patient is sitting up in bed, in no acute distress. HEENT: Atraumatic, normocephalic. PERRLA. Extraocular muscles intact. NECK: Supple. No JVD. No adenopathy noted. LUNGS: Clear to auscultation. No adventitious sounds. HEART: S1, S2. Normal rate and rhythm. No murmurs, rubs or gallops. ABDOMEN: Soft, nontender and nondistended. Bowel sounds are present. EXTREMITIES: No clubbing. NEUROLOGIC: The patient is slightly drowsy, but speech is hypophonic and no aphasia noted. Motor exam, moves spontaneous all extremities. Cranial nerves II-XII intact. No pronator drift seen. Sensory exam: Light touch and pinprick decreased at the calves bilaterally. Decreased vibration of the toes. DTRs are 2+ throughout except for 1 at both knees and ankles. Coordination and gait deferred for now due to the patient being postictal. ASSESSMENT AND PLAN: This is a 57-year-old man with past medical history of type 2 diabetes mellitus, diabetic peripheral neuropathy, chronic kidney disease, hypertension, coronary artery disease, status post 2 stents, hyperlipidemia and deep venous thrombosis, Chowdhury palsy, history of nasopharyngeal carcinoma, status post radiation with recent intracranial hemorrhage on 09/06/2017 and he had a seizure at that time due to hemorrhage on that particular moment, comes in for breakthrough seizures and was not on any prior antiepileptics and a gram of Keppra was given in the ER as well as 2 mg of Ativan which he had some improvement. Currently, he is no longer seizing and following simple commands. His seizure is secondary to his prior encephalomalacia seen in the anterior bilateral frontal lobes as well as bilateral parietotemporal hemorrhagic contusions. No acute hemorrhage seen on the CAT scan. RECOMMENDATIONS: At this point, I recommend: 1. He should be on Keppra 500 mg p.o. b.i.d. for seizure prophylaxis. 2. PT/OT evaluation may be needed in subacute rehab. 3. Keep his blood sugars between 140-180. 4. Monitor electrolytes and correct accordingly. 5. Keep his systolic blood pressure between 130-140s, diastolic 70-80s. 6. EEG. Thank you for this consult. Michael Laurent MD
--- NOTE | 2017-09-30 18:02 | MRI ---
Date of service: 09/30/2017 PROCEDURE: MRI BRAIN WITHOUT CONTRAST HISTORY: cyril COMPARISON: COMPARISON IS MADE WITH PRIOR STUDY DATED 09/08/2017 TECHNIQUE: Only diffusion-weighted and ADC map images axial T2, axial T2 FLAIR images of the brain were obtained. FINDINGS: HEMORRHAGE: No evidence of new foci of parenchymal hemorrhage. DWI: No evidence of new diffusion restriction in the brain. Foci of hyperintense diffusion signal noted in the brain again again noted in the bifrontal and bitemporal region likely represent T2 shine through. BRAIN PARENCHYMA: Encephalomalacia at the right frontal lobe is again noted. No atrophy or chronic microvascular ischemic changes. VENTRICLES: Unremarkable. No hydrocephalus. CRANIUM: Unremarkable. ORBITS: Grossly unremarkable. PARANASAL SINUSES/MASTOIDS: Clear VASCULAR SYSTEM: Skull base flow voids intact. OTHER FINDINGS: None. IMPRESSION: No significant interval changes noted since the previous MRI. Limited incomplete study. If clinically warranted follow-up CT may be obtained.
[2017-10-01] MEDS: Insulin Reg-LOW-Coverage SC SCH ×4 (08:20→22:00)
--- NOTE | 2017-10-01 12:05 | CP.PCM.PN ---
Subjective - Date & Time of Evaluation Date of Evaluation: 10/01/17 Time of Evaluation: 11:50 - Subjective Subjective: lethargic, arousable s/p sedation Objective - Vital Signs/Intake and Output Vital Signs (last 24 hours): Temp Pulse Resp BP Pulse Ox 97.4 F L 71 19 160/90 H 98 10/01/17 08:13 10/01/17 08:13 10/01/17 08:13 10/01/17 08:13 10/01/17 08:13 Intake and Output: 10/01/17 10/01/17 06:59 18:59 Intake Total 100 Output Total 400 Balance -300 - Medications Medications: Current Medications Amlodipine Besylate (Norvasc) 10 mg PO DAILY [facility] Dextrose (Dextrose 50% Inj) 0 ml IV STAT PRN; Protocol PRN Reason: Hypoglycemia Protocol Dextrose (Dextrose 5% In Water 1000 Ml) 1,000 mls @ 0 mls/hr IV .Q0M PRN; Protocol; Per Protocol PRN Reason: Hypoglycemia Protocol Insulin Human Regular (Humulin R Low) 0 units SC ACHS JAVIER PRN Reason: Protocol Last Admin: 10/01/17 08:20 Dose: Not Given Levetiracetam (Keppra) 500 mg PO BID JAVIER Last Admin: 10/01/17 10:10 Dose: 500 mg Lorazepam (Ativan) 1 mg PO TID PRN; Protocol PRN Reason: Agitation Last Admin: 09/30/17 23:40 Dose: 1 mg - Labs Labs: PT 11.0 SECONDS (9.4-12.5) 09/29/17 05:10 INR 0.96 09/29/17 05:10 APTT 34.8 Seconds (25.1-36.5) 09/29/17 05:10 - Respiratory Exam Respiratory Exam: Clear to Ausculation Bilateral, NORMAL BREATHING PATTERN - Cardiovascular Exam Cardiovascular Exam: REGULAR RHYTHM - GI/Abdominal Exam GI & Abdominal Exam: Soft, Normal Bowel Sounds - Extremities Exam Extremities Exam: Normal Inspection - Neurological Exam Neurological Exam: Altered - Skin Skin Exam: Dry, Warm Assessment and Plan (1) New onset seizure Status: Acute (2) Intracranial hemorrhage Status: Resolved (3) Hypertension Status: Chronic (4) Type II diabetes mellitus Status: Chronic - Assessment and Plan (Free Text) Plan: pt agitated at times, will obtian psych consult, neuro consult appreciated, SW for discharge planning
--- NOTE | 2017-10-01 12:49 | EEG ---
Copied To: Michael Laurent MD Attending MD: Michael Laurent MD DATE: 09/30/2017 CONDITION OF THE RECORDING: Drowsy. DIAGNOSIS: Seizure. MEDICATIONS: Keppra. INTERPRETATION: This is a 16-channel international recording. The background activity was composed of 6 to 7 cycles per second. There was a small amount of beta activity of 16 to 20 cycles per second seen in this recording. There was increased amount of theta activity of 5 to 7 cycles per second seen in this tracing. Sleep was characterized by vertex transient waves, sleep spindles and bilateral slowing. Photic stimulation showed no changes in the tracing. There was some intermittent paroxysmal activity with periods of slow waves throughout the recording bitemporal areas, all consistent with epileptiform activity. CONCLUSION: This is an abnormal EEG due to presence of severe bilateral cerebral dysfunction in addition to intermittent paroxysmal activity consistent with epileptiform activity. Please clinically correlate. Michael Laurent MD
[2017-10-01 16:43] VITALS: RESP 20
--- NOTE | 2017-10-01 18:21 | PN ---
Copied To: Michael Laurent MD Attending MD: Michael Laurent MD DATE: 10/01/2017 NEUROLOGY FOLLOWUP CHIEF COMPLAINT: Followup for seizures. SUBJECTIVE: The patient is examined at bedside. No acute events overnight. 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 The patient is stable on Keppra. PAST MEDICAL HISTORY: History of type 2 diabetes mellitus, diabetic peripheral neuropathy, chronic kidney disease, hypertension, coronary artery disease status post 2 stents, hyperlipidemia and DVT, Chowdhury palsy, history of nasopharyngeal carcinoma status post radiation with recent intracranial hemorrhage on 09/06/2017. REVIEW OF SYSTEMS: A 14-point review of systems is negative except as per the HPI. FAMILY HISTORY: Noncontributory. MEDICATIONS: Reviewed by nurse per reconciliation sheet. ALLERGIES: NO KNOWN DRUG ALLERGIES. PHYSICAL EXAMINATION: VITAL SIGNS: Temperature 97.8, pulse rate of 84, blood pressure 121/73, respiratory rate of 20, oxygen saturation 98% via room air. GENERAL: The patient is lying in bed, in no acute distress. HEENT: Head is atraumatic, normocephalic. PERRLA. Extraocular muscles intact. NECK: Supple. No JVD. No adenopathy noted. LUNGS: Clear to auscultation. No adventitious sounds. HEART: S1 and S2. Normal rate and rhythm. No murmurs, rubs or gallops. ABDOMEN: Soft, nontender and nondistended. Bowel sounds are present. EXTREMITIES: No clubbing, no cyanosis. Peripheral pulses 2+ felt bilaterally. NEUROLOGIC: The patient is , but alert and oriented to person and place. Speech is hypophonic. No aphasia noted. Motor exam: Moves all extremities spontaneously. Cranial nerves II-XII intact. No pronator drift seen. Sensory exam: Light touch, pinprick, proprioception, decreased up to the calves bilaterally. Decreased vibration of the toes. DTRs are 2+ throughout except for 1 at both knees and ankles. Coordination and gait deferred for now. ASSESSMENT AND PLAN: This is a 57-year-old man with past medical history of type 2 diabetes mellitus, diabetic peripheral neuropathy, chronic kidney disease, hypertension, coronary artery disease status post 2 stents, nasopharyngeal carcinoma status post radiation with intracranial hemorrhage on 09/06/2017 and had seizure at that time, came in for breakthrough seizure, was not on any prior antiepileptics and his seizure is secondary to prior encephalomalacia seen in the anterior bilateral frontal lobes as well as the bilateral parietotemporal area with hemorrhagic contusion which is also seen in his MRI of the brain. At this time, we recommend to continue with Keppra 500 mg p.o. b.i.d. PT/OT evaluation, subacute rehab. Keep his blood sugars between 140 to 180 and keep his blood pressure between 130s to 140s systolic and diastolic 70s to 80s. Monitor electrolytes and correct accordingly. Thank you for this followup. We will follow up as an outpatient. Michael Laurent MD
[2017-10-02 07:06] VITALS: BP 150/88; PULSE 84; TEMP 98.1; O2SAT 97
[2017-10-02] MEDS: Insulin Reg-LOW-Coverage SC SCH ×2 (08:22→12:31)
--- NOTE | 2017-10-02 11:25 | CP.PCM.PN ---
Subjective - Date & Time of Evaluation Date of Evaluation: 10/02/17 Time of Evaluation: 10:45 - Subjective Subjective: awake and responsive, NAD, no seizure activity past 48- -72 hrs. Objective - Vital Signs/Intake and Output Vital Signs (last 24 hours): Temp Pulse Resp BP Pulse Ox 98.1 F 84 20 150/88 97 10/02/17 06:00 10/02/17 06:00 10/02/17 06:00 10/02/17 10:43 10/02/17 06:00 Intake and Output: 10/02/17 10/02/17 06:59 18:59 Intake Total 0 Output Total 175 Balance -175 - Medications Medications: Current Medications Amlodipine Besylate (Norvasc) 10 mg PO DAILY [facility] Last Admin: 10/02/17 10:43 Dose: 10 mg Insulin Human Regular (Humulin R Low) 0 units SC ACHS [facility] PRN Reason: Protocol Last Admin: 10/02/17 08:22 Dose: Not Given Levetiracetam (Keppra) 500 mg PO BID [facility] Last Admin: 10/02/17 10:42 Dose: 500 mg Lorazepam (Ativan) 1 mg PO TID PRN; Protocol PRN Reason: Agitation Last Admin: 09/30/17 23:40 Dose: 1 mg - Labs Labs: PT 11.0 SECONDS (9.4-12.5) 09/29/17 05:10 INR 0.96 09/29/17 05:10 APTT 34.8 Seconds (25.1-36.5) 09/29/17 05:10 - Respiratory Exam Respiratory Exam: NORMAL BREATHING PATTERN - Cardiovascular Exam Cardiovascular Exam: REGULAR RHYTHM - GI/Abdominal Exam GI & Abdominal Exam: Soft, Normal Bowel Sounds - Extremities Exam Extremities Exam: Normal Inspection - Neurological Exam Neurological Exam: Alert, Awake - Psychiatric Exam Psychiatric exam: Flat Affect - Skin Skin Exam: Dry, Warm Assessment and Plan (1) New onset seizure Status: Acute (2) Intracranial hemorrhage Status: Resolved (3) Hypertension Status: Chronic (4) Type II diabetes mellitus Status: Chronic - Assessment and Plan (Free Text) Plan: continue PO Keppra, PT eval and Tx, SW for discharge planning, monitor bp
--- NOTE | 2017-10-02 15:44 | CP.PCM.PCO ---
Subjective - Physician Review Subjective (Free Text): KALIE I was contacted by nurse that patient was requesting to leave AM. Chart was reviewed prior to seeing patient. Patient admitted for seizures. The benefits of staying was explained to patient including continued evaluation and appropriate treatment. The risks of leaving against medical advice was explained including, but not limited to continued seizures, falls, trauma, worsened morbidity, and possible mortality. Patient is AOx3 and capable of making his own decisions. Despite counselling, patient elected to leave against medical advice. Primary attending was notified and requests patient be given Rx for Keppra before leaving.
--- NOTE | 2017-10-03 08:09 | CON ---
Copied To: Nicole Holland MD Attending MD: Nicole Holland MD DATE: 10/02/2017 HISTORY OF PRESENT ILLNESS: This is a 57-year-old male with no formal psychiatric history, who is being seen bouts of seizure, which was witnessed by his fiancee. The patient was seen in August on the medical floor for an intracranial hemorrhage with related seizure during that hospitalization as well. Dr. Jeronimo consulted on 09/10/2017 regarding capacity and felt that patient did not have the capacity at that time against medical advice. This provider has been consulted because of patient's agitation, which very much appears to be related to delirium, postictal . I met with the patient at bedside and he was not aware that psychiatrist was called to evaluate him. The patient admits to having a history of depression, but it was never really treated in the past. Denies having any suicidal attempt or psychiatric admissions. Presently, he denies any major concerns, he feels okay, he is not suicidal, he is hopeful about the future, he is not homicidal and he has been very calm thus far during the course of my interview with him, and his thought process appears to be improving. Patient is aware that he is in the hospital; however, immediately asked me why. His short term memory is limited as I have to explain him twice that he has a seizure and he is being evaluated for seizure. Patient is aware that it is 09/2017. His thought process is generally coherent and that his responses are related to my questioning, and they are logical. He does not appear to be responding to internal stimuli, and denies having any perceptual disturbance. His insight and judgment are considered to be fair at this time; however, I cannot rule out that this is a more lucid stage of delirium process going on. Vital signs, medications, and his labs were reviewed. RELEVANT PSYCHIATRIC MEDICATIONS: Ativan 1 mg p.o. t.i.d. p.r.n. PSYCHIATRIC HISTORY: Patient denies any formal psychiatric history, though admits to a past history of depression, which does not appear to have been profound. Denies any prior history of suicide attempts, admissions or psychiatric med trials 03:07. SOCIAL HISTORY: The patient was born in [facility]. He is single. He has four children; however, one . He lives with his fiancee. He does not work. He is retired. 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 He reports that he is on disability. IMPRESSION: Delirium, postictal. RECOMMENDATIONS: I would recommend low-dose Haldol 1 mg p.o. t.i.d. p.r.n. to be given with Ativan 1 mg p.o. t.i.d. p.r.n. for agitation; however, it is secondary to delirium, this appears to be improving at this time.. Psychiatry will sign off. Please re-consult p.r.n. Nicole Holland MD
--- NOTE | 2017-10-03 13:41 | DS ---
Copied To: FENG Thompson MD Attending MD: FENG Thompson MD HOSPITAL COURSE: The patient is a 57-year-old male admitted through the emergency department with a witnessed seizure on 09/29/2017. The patient was seen in consultation by Neurology. MRI of the brain was negative for acute bleeds or infarcts. He was started on oral Keppra 500 mg twice daily. The patient's hospital course was complicated by agitation. He was seen in consultation by Psychiatry. The patient was seizure-free for 48 to 72 hours prior to signing out against medical advice on 10/02/2017. Physical examination and vital signs are as per progress note of 10/02/2017. IMPRESSION: 1. Seizure disorder status post intracranial hemorrhage. 2. Coronary artery disease, status post stent placement x2. 3. Hypertension. 4. Chronic kidney disease, stage II to III. 5. History of craniotomy status post subdural hematoma. 6. Asthma. PLAN: The patient signed out against medical advice. She left on the following medications, Keppra 500 mg twice daily, loratadine 10 mg daily, Januvia 50 mg daily, Zocor 20 mg daily, amlodipine 10 mg daily. He is to maintain a heart-healthy low-sodium diet. Activities, ad libitum. He will be followed in the office within the next 1 to 2 weeks. FENG Thompson MD
== END 2017-10-02 15:54 | disposition home health service (06) | DRG 101 ==
LOC: ED 04:40 → ERH 06:17 → 3RSO 11:43
PROVIDERS: ADMIT Internal Medicine; ATTEND Internal Medicine
DX: R56.9 Unspecified convulsions (principal); I69.398 Other sequelae of cerebral infarction; I12.9 Hypertensive chronic kidney disease with stage 1 through stage 4 chronic kidney disease, or unspecified chronic kidney disease; N18.3 Chronic kidney disease, stage 3 (moderate); E11.22 Type 2 diabetes mellitus with diabetic chronic kidney disease; J45.909 Unspecified asthma, uncomplicated; E78.5 Hyperlipidemia, unspecified; G93.89 Other specified disorders of brain; I25.10 Atherosclerotic heart disease of native coronary artery without angina pectoris; F31.9 Bipolar disorder, unspecified; E78.00 Pure hypercholesterolemia, unspecified; E11.42 Type 2 diabetes mellitus with diabetic polyneuropathy; G51.0 Bell's palsy; Z86.718 Personal history of other venous thrombosis and embolism; Z95.5 Presence of coronary angioplasty implant and graft; Z85.818 Personal history of malignant neoplasm of other sites of lip, oral cavity, and pharynx; Z86.73 Personal history of transient ischemic attack (TIA), and cerebral infarction without residual deficits; Z79.84 Long term (current) use of oral hypoglycemic drugs; Z92.3 Personal history of irradiation

== ENCOUNTER 2017-12-07 16:43 | Emergency (ER) | payer OTHER ==
[2017-12-07 16:43] VITALS: BMI 29.9
[2017-12-07 16:57] VITALS: PULSE 96; RESP 18; O2SAT 98
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
[2017-12-07 18:04] LABS: BASO # 0.04 K/mm3 (0.0-2.0); BASO % 0.6 % (0.0-3.0); EOS # 0.3 (0.0-0.7); EOS % 4.1 % (1.5-5.0); GRAN # 5.11 (1.4-6.5); GRAN % 71.3 % (50.0-68.0); LYMPH # 1.1 (1.2-3.4); LYMPH % 14.9 % (22.0-35.0); MEAN CELL VOLUME 85.7 fl (80.0-105.0); MEAN CORPUSCULAR HEMOGLOBIN 29.5 pg (25.0-35.0); MEAN CORPUSCULAR HGB CONC 34.4 g/dl (31.0-37.0); MEAN PLATELET VOLUME 9.5 fl (7.0-11.0); MONO # 0.7 (0.1-0.6); MONO % 9.1 % (1.0-6.0); RBC 4.07 10^6/uL (3.5-6.1); RED CELL DISTRIBUTION WIDTH 13.6 % (11.5-14.5); WHITE BLOOD COUNT 7.2 10^3/ul (4.5-11.0)
[2017-12-07 18:13] LABS: URINE BILIRUBIN NEGATIVE (NEGATIVE); URINE BLOOD SMALL (NEGATIVE); URINE GLUCOSE (UA) 100 mg/dL (NEGATIVE); URINE LEUKOCYTE ESTERASE NEGATIVE Leu/uL (NEGATIVE); URINE PROTEIN >=300 mg/dL (<30 mg/dL); URINE UROBILINOGEN 0.2 E.U./dL (<1 E.U./dL)
[2017-12-07 18:14] LABS: URINE APPEARANCE CLEAR (CLEAR); URINE COLOR YELLOW (YELLOW)
[2017-12-07 18:20] LABS: URINE BACTERIA NEG (NEG); URINE RBC 0 - 2 /hpf (0-2); URINE WBC 0 - 2 /hpf (0-6)
[2017-12-07 18:39] LABS: ALB/GLOB RATIO 1.1 (1.1-1.8); ALBUMIN 3.7 g/dL (3.0-4.8)
[2017-12-07 19:06] VITALS: BP 160/80
[2017-12-07 19:12] VITALS: TEMP 98
== END 2017-12-07 19:11 | disposition home or self-care (01) ==
LOC: ED 16:43
DX: N28.9 Disorder of kidney and ureter, unspecified (principal); I10 Essential (primary) hypertension; E11.9 Type 2 diabetes mellitus without complications; E78.00 Pure hypercholesterolemia, unspecified

== ENCOUNTER 2018-07-15 08:11 | Observation (INO) | payer OTHER ==
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
[2018-07-15] MEDS ORDERED: guaiFENesin-Codeine 100-10mg/5ml Syrup (5 ml) UD PO STA (09:05)
--- NOTE | 2018-07-15 09:38 | RAD ---
Date of service: 07/15/2018 HISTORY: cough COMPARISON: Portable chest 11/10/2017. TECHNIQUE: 1 view obtained. FINDINGS: LUNGS: Borderline patchy infiltrate bilateral infrahilar spaces, though this could be a function of crowding of the bronchovascular markings. PLEURA: No significant pleural effusion identified, no pneumothorax apparent. CARDIOVASCULAR: Calcific atherosclerotic changes are seen related to the thoracic aorta. Normal cardiac size. No pulmonary vascular congestion. OSSEOUS STRUCTURES: No significant abnormalities. VISUALIZED UPPER ABDOMEN: Normal. OTHER FINDINGS: None. IMPRESSION: Borderline patchy infiltrate bilateral infrahilar space though this could be a function of crowding of the bronchovascular markings. Further clinical correlation is recommended. No pulmonary vascular congestion.
[2018-07-15 09:41] LABS: BASO # 0.03 K/mm3 (0.0-2.0); BASO % 0.3 % (0.0-3.0); EOS # 0.3 (0.0-0.7); EOS % 2.9 % (1.5-5.0); HEMOGLOBIN 11.1 g/dL (14.0-18.0); LYMPH # 0.8 (1.2-3.4); LYMPH % 7.1 % (22.0-35.0); MEAN CELL VOLUME 89.8 fl (80.0-105.0); MEAN CORPUSCULAR HEMOGLOBIN 30.5 pg (25.0-35.0); MEAN CORPUSCULAR HGB CONC 33.9 g/dl (31.0-37.0); MEAN PLATELET VOLUME 10.8 fl (7.0-11.0); MONO % 8.4 % (1.0-6.0); RBC 3.64 10^6/uL (3.5-6.1); RED CELL DISTRIBUTION WIDTH 14.8 % (11.5-14.5); WHITE BLOOD COUNT 11.8 10^3/uL (4.5-11.0)
[2018-07-15 09:47] LABS: INR 1.09; PROTHROMBIN TIME 12.3 SECONDS (9.4-12.5)
[2018-07-15 10:58] LABS: ALB/GLOB RATIO 1.1 (1.1-1.8); ALBUMIN 3.9 g/dL (3.0-4.8)
[2018-07-15] MEDS ORDERED: cefTRIAXone 1 gm 1 GM/100 ML BAG IVPB SCH (11:45)
[2018-07-15] MEDS: Levalbuterol 0.63 MG/3 ML Inhal Soln UD IH SCH ×2 (13:06→19:19)
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
[2018-07-15] MEDS ORDERED: Levalbuterol 0.63 MG/3 ML Inhal Soln UD IH PRN ×2 (13:36→13:46)
[2018-07-15] MEDS ORDERED: Metoprolol 1 mg/ml Inj IVP ONE (13:58)
[2018-07-15] MEDS: guaiFENesin-Codeine 100-10mg/5ml Syrup (5 ml) UD PO PRN (14:00)
[2018-07-15] MEDS: Enoxaparin 30 mg Syringe SC SCH (14:00)
[2018-07-15 14:11] LABS: FREE T4 0.84 ng/dL (0.78-2.19)
[2018-07-15] MEDS ORDERED: Ergocalciferol 50,000 Intl Units Cap PO SCH (14:15)
[2018-07-15] MEDS ORDERED: Metoprolol 1 mg/ml Inj IVP PRN (14:34)
[2018-07-15 14:51] LABS: HDL CHOLESTEROL 64 mg/dL (29-60)
[2018-07-15 15:01] LABS: LDL CHOLESTEROL 100 mg/dL (0-129)
[2018-07-15 15:13] LABS: URINE BILIRUBIN NEGATIVE (NEGATIVE); URINE BLOOD SMALL (NEGATIVE); URINE GLUCOSE (UA) NEGATIVE (NEGATIVE); URINE LEUKOCYTE ESTERASE NEGATIVE Leu/uL (NEGATIVE); URINE PROTEIN 100 mg/dL (<30 mg/dL); URINE UROBILINOGEN 0.2 E.U./dL (<1 E.U./dL)
[2018-07-15] MEDS: Azithromycin 250 MG in Sodium Chloride 0.9% 250 ML IVPB SCH (15:13)
[2018-07-15 15:18] LABS: URINE COLOR YELLOW (YELLOW)
[2018-07-15 15:19] LABS: URINE APPEARANCE CLOUDY (CLEAR)
[2018-07-15 15:29] VITALS: BMI 28.8
[2018-07-15] MEDS ORDERED: Pneumococcal 23-Valent Vaccine IM ONE (15:33)
--- NOTE | 2018-07-15 17:39 | CARD ---
APPROVED REPORT Date of service: 07/15/2018 EKG Measurement Heart [id number] <Conclusion> Normal sinus rhythm Possible Left atrial enlargement Right bundle branch block Abnormal ECG
[2018-07-15] MEDS: Insulin Reg-LOW-Coverage SC SCH ×2 (18:03→22:14)
--- NOTE | 2018-07-15 18:11 | US ---
HISTORY: Leg pain and swelling. Evaluate for DVT PHYSICIAN(S): Jaime Verma MD. TECHNIQUE: Duplex sonography and color-flow Doppler with graded compression were used to evaluate the deep venous systems of both lower extremities. The exam is limited by edema. FINDINGS: The visualized deep venous systems of both lower extremities are sonographically normal and compressible. Normal wave forms and augmentation are seen. There is no sonographic evidence for deep venous thrombosis in the visualized segments of both lower extremities. IMPRESSION: No sonographic evidence for deep venous thrombosis in the visualized segments of both lower extremities.
[2018-07-15 19:09] LABS: TROPONIN I 0.07 ng/mL
[2018-07-15 19:15] LABS: CK MB% 1.8 % (2.5-3.0); CK-MB 8.9 ng/mL (0.0-3.6)
--- NOTE | 2018-07-15 20:57 | CON ---
DATE OF CONSULTATION : 07/15/2018 The patient is admitted for Dr. Maine Quispe. REFERRING MD: Dr. Quispe. REASON FOR CONSULTATION: Evaluation of a patient known to us from the past, who has a history of chronic kidney disease stage III. The patient comes in with acute renal failure superimposed on chronic kidney disease stage III with increasing lower extremity edema. HISTORY OF PRESENT ILLNESS: The patient is a 58-year-old male with a history of chronic kidney disease stage III with a baseline creatinine in the upper 1 range. The patient now comes in with a BUN of 56 and a creatinine of 2.4. This was in the setting of increasing diuretic therapy in the outpatient setting for lower extremity edema. 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 History of subacute intracranial hematoma status post craniotomy, stable. History of anemia. The patient presents to the hospital with increasing edema. His chest x-ray in the emergency room also showed bilateral infiltrates, possibly consistent with pneumonia rather than CHF. We were asked to evaluate the patient for his elevated BUN and creatinine and his hypervolemic state. 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 MEDICATIONS AT HOME: Include that of hydralazine, Norvasc, Nephro-Nicko, sodium bicarbonate, simvastatin, Januvia, Jeniffer-Nicko, omeprazole, loratadine, lisinopril, Lasix, Feosol, Lexapro, vitamin D, cetirizine, Eliquis, and lisinopril. ALLERGIES: NO KNOWN ALLERGIES TO MEDICATIONS. CURRENT MEDICATIONS IN THE HOSPITAL: Include that of hydralazine, aspirin, IV azithromycin, vitamin D, Feosol, p.o. Lasix, Lexapro, Lipitor, Lopressor, Lovenox, Nephro-Nicko, Norvasc, nasal spray with normal saline, Robitussin with Codeine p.r.n., Rocephin, Xopenex, and lisinopril. SOCIAL HISTORY: No history of cigarette smoking. No history of alcohol use. FAMILY HISTORY: Positive for diabetes and prostate cancer. REVIEW OF SYSTEMS: [place] plus systems reviewed with the patient. The patient states everything has been stable except for the increased edema of his lower extremity. Appetite and weight have been stable. ENT: Denies any hearing or visual problems, but does have a history of diabetic retinopathy. PULMONARY: No shortness of breath. Positive cough. No recent history of pneumonia. CARDIAC: History as noted above. GASTROINTESTINAL: No nausea, vomiting, abdominal pain, constipation, or diarrhea. GENITOURINARY: History of chronic kidney disease stage III as noted above. ENDOCRINE: History of diabetes with diabetic retinopathy. MUSCULOSKELETAL: No complaints. NEURO: Past history of intracranial hematoma, status post craniotomy. HEME-ONC: History of anemia secondary to chronic kidney disease, history of nasopharyngeal cancer, status post chemo and radiation therapy. PSYCHIATRIC: History is negative. PHYSICAL EXAMINATION: GENERAL: The patient is currently seen on 2R. He has just returned from a venous Doppler of his lower extremity. VITAL SIGNS: Current blood pressure is ranging from 188 to 200 systolic. Diastolics are ranging from 90 to 104. Pulse is 100, respiratory rate is 18 with a temperature of 98.9. HEENT: Exam shows him to be normocephalic. He has healed craniotomy scars. Pupils are equal and reactive to light and accommodation. Extraocular muscles are intact. Conjunctivae are pink. Sclerae are nonicteric. Posterior pharynx appears normal. NECK: Supple. No neck vein distention. No thyromegaly. No lymphadenopathy. No bruits. CHEST: Scattered rhonchi bilaterally. No rales or wheezing. Slight decreased breath sounds at the bases. CARDIOVASCULAR: Shows a regular rate and rhythm without audible murmurs, rubs, or gallops. ABDOMEN: Soft. Bowel sounds normal. No rebound, guarding, or masses. BACK: No CVAT. No spinal tenderness. EXTREMITIES: Show 2+ edema to the midcalf region, pitting. No cyanosis or clubbing. Diminished lower extremity pulses secondary to edema. NEURO: Shows him to be alert and oriented x3 with no gross focal motor or sensory deficits. LABORATORY DATA AND IMAGING STUDIES: Admitting chest x-ray showed bilateral infiltrates, possibility of congestive heart failure versus pneumonia, but no pulmonary vascular congestion noted. CT scan of the abdomen done in 10/2017 showed normal kidneys. Venous Doppler was done, results are pending. LABS: CBC: White blood cell count is 11.8 with a hemoglobin of 11.1, platelet count of 333,000. Coags are normal. Chemistries showed a chloride of 116 with a sodium of 146, BUN is 56 with a creatinine of 2.4. Again, his baseline BUN is in the 30s with a creatinine of 1.6 to 1.8. Glucose is 125. Hemoglobin A1c level is pending. Calcium is 9. Liver enzymes are normal. Troponins 0.07. Albumin is 3.9. BMP is slightly elevated at 1590. His T4 and TSH levels are normal. Urines are pending. Serologies done back in 2018 were negative. HIV done in 2018 and hepatitis screen in 2018 were negative. Microbiology, all cultures are pending. ASSESSMENT: 1. Acute renal failure superimposed on chronic kidney disease stage III. This is likely in the setting of diuretic therapy. I agree with increasing the dose of diuretic therapy in all likelihood to become slightly more prerenal, but no choice, as the patient is developing symptomatic lower extremity edema post myocardial infarction with some component of congestive heart failure. 2. Possible pneumonia. All cultures are pending. The patient was started on empiric antibiotic therapy. 3. History of hypertension. Blood pressure currently is not well controlled. The patient right now may continue on CHERY inhibition. We will continue Norvasc, which he had been on in the outpatient setting. The patient may be given clonidine on an as-needed basis to lower his blood pressure if his systolics remain in the 200 range. I think with diuresis, his blood pressure will drop. 4. History of chd-conhary-qibaapcpb diabetes mellitus with diabetic retinopathy. 5. History of mild proteinuria in the past. The patient had negative serologies in the past as a part of the workup. 6. History of arteriosclerotic heart disease, status post percutaneous transluminal coronary angioplasty and stent. Troponin levels appear to be flat. 7. Nasopharyngeal cancer, status post chemotherapy and radiation therapy by history. 8. History of anemia, likely secondary in part to chronic kidney disease. 9. Possible secondary hyperparathyroidism. Check phosphorus levels, check PTH, and check vitamin D level. 10. Past history of subacute intracranial hematoma, status post craniotomy back in 2018. PLAN: 1. I agree with increase in his diuretic therapy. If we are unsuccessful in obtaining negative fluid balance with weight loss, the patient may be switched to IV diuretic therapy. He has had BUNs up into the 70 to 80 range with creatinines in the upper 2 range in the past, but it has always come down to baseline. 2. I will not order any renal ultrasound at this point in time as he had a CT scan of the kidney back in the summer of 2017, which did not show any abnormal pathology of the kidneys. 3. We will obtain a urinalysis. We will obtain a 24-hour urine for creatinine clearance and protein. 4. Renal diet. We will screen for secondary hyperparathyroidism. Check a phosphorus level, PTH, and vitamin D. 5. Accurate I's and O's and daily weights. 6. Monitor the patient on telemetry. 7. Followup for his venous Doppler study. 8. Case discussed with staff on 2R and with the patient in detail. Thank you for letting me partake and share in the care of your patient. Nicolas Anderson MD
[2018-07-16 01:03] LABS: TROPONIN I 0.09 ng/mL
[2018-07-16 01:15] LABS: CK-MB 7.3 ng/mL (0.0-3.6)
[2018-07-16] MEDS: Pantoprazole 40 mg EC Tab PO SCH (05:00)
[2018-07-16 07:06] LABS: BASO # 0.03 K/mm3 (0.0-2.0); BASO % 0.3 % (0.0-3.0); EOS # 0.5 (0.0-0.7); LYMPH # 0.5 (1.2-3.4); MEAN CELL VOLUME 89.2 fl (80.0-105.0); MEAN CORPUSCULAR HEMOGLOBIN 29.2 pg (25.0-35.0); MEAN CORPUSCULAR HGB CONC 32.7 g/dl (31.0-37.0); MEAN PLATELET VOLUME 9.9 fl (7.0-11.0); MONO # 0.9 (0.1-0.6); MONO % 10.3 % (1.0-6.0); PLATELET COUNT 257 10^3/uL (120.0-450.0); RBC 3.43 10^6/uL (3.5-6.1); RED CELL DISTRIBUTION WIDTH 14.8 % (11.5-14.5); WHITE BLOOD COUNT 8.9 10^3/uL (4.5-11.0)
[2018-07-16] MEDS: Levalbuterol 0.63 MG/3 ML Inhal Soln UD IH SCH ×3 (07:06→20:08)
[2018-07-16 07:21] LABS: ALB/GLOB RATIO 1.1 (1.1-1.8); ALBUMIN 3.3 g/dL (3.0-4.8); CALCIUM 8.6 mg/dL (8.4-10.5)
[2018-07-16] MEDS: Insulin Reg-LOW-Coverage SC SCH ×4 (08:05→22:03)
[2018-07-16 08:27] LABS: EOSINOPHIL 1 % (0.0-3.0); LYMPHOCYTE 9 % (22.0-35.0); MONOCYTE 16 % (1.0-6.0); NEUTROPHIL 74 % (50.0-70.0)
[2018-07-16] MEDS ORDERED: cefTRIAXone 1 gm 1 GM/100 ML BAG IVPB SCH (10:00)
[2018-07-16] MEDS: Enoxaparin 30 mg Syringe SC SCH (10:16)
[2018-07-16] MEDS: Multivitamin Vitamin B Complex (Nephro-Vite) Tab PO SCH (10:16)
[2018-07-16] MEDS: Azithromycin 250 MG in Sodium Chloride 0.9% 250 ML IVPB SCH (11:55)
--- NOTE | 2018-07-16 14:54 | CP.PCM.PN ---
<Yehuda Dukes - Last Filed: 07/16/18 16:52> Subjective - Date & Time of Evaluation Date of Evaluation: 07/16/18 Time of Evaluation: 07:30 - Subjective Subjective: Yehuda Dukes DO PGY1 Hospitalist Progress Note for Dr Harris Patient seen and examined at bedside. Reports improving breathing, cough, leg swelling symptoms. No acute events overnight Objective - Vital Signs/Intake and Output Vital Signs (last 24 hours): Temp Pulse Resp BP Pulse Ox 98.2 F 71 20 149/79 92 L 07/16/18 12:00 07/16/18 14:40 07/16/18 12:00 07/16/18 14:40 07/16/18 05:53 Intake and Output: 07/16/18 07/16/18 06:59 18:59 Intake Total 360 Output Total 1200 Balance -840 - Medications Medications: Current Medications Amlodipine Besylate (Norvasc) 10 mg PO DAILY [facility] Last Admin: 07/16/18 10:19 Dose: 10 mg Aspirin (Aspirin Chewable) 81 mg PO DAILY [facility] Last Admin: 07/16/18 10:15 Dose: 81 mg Atorvastatin Calcium (Lipitor) 40 mg PO DIN [facility] Last Admin: 07/15/18 18:03 Dose: 40 mg Azithromycin (Zithromax) 250 mg PO DAILY [facility] Clonidine HCl (Catapres) 0.1 mg PO Q4H PRN PRN Reason: hypertension Enoxaparin Sodium (Lovenox) 30 mg SC DAILY [facility]; Protocol Last Admin: 07/16/18 10:16 Dose: 30 mg Ergocalciferol (Drisdol 50,000 Intl Units Cap) 1 cap PO Q7D [facility] Last Admin: 07/15/18 15:14 Dose: 1 cap Escitalopram Oxalate (Lexapro) 20 mg PO DAILY [facility] Last Admin: 07/16/18 10:15 Dose: 20 mg Ferrous Sulfate (Feosol) 324 mg PO TID [facility] Last Admin: 07/16/18 14:40 Dose: 324 mg Furosemide (Lasix) 40 mg IVP 0600,1800 [facility] Guaifenesin/Codeine Phosphate (Robitussin W/Codeine) 5 ml PO Q4H PRN PRN Reason: Cough and congestion Last Admin: 07/15/18 14:00 Dose: 5 ml Hydralazine HCl (Apresoline) 50 mg PO TID [facility] Last Admin: 07/16/18 14:40 Dose: 50 mg Ceftriaxone Sodium (Rocephin 1 Gram Ivpb) 1 gm in 100 mls @ 100 mls/hr IVPB DAILY [facility]; Protocol Last Admin: 07/16/18 10:17 Dose: 100 mls/hr Insulin Human Regular (Humulin R Low) 0 units SC ACHS [facility]; Protocol Last Admin: 07/16/18 11:47 Dose: Not Given Levalbuterol HCl (Xopenex) 0.63 mg IH TIDRESP [facility] Last Admin: 07/16/18 13:30 Dose: 0.63 mg Levalbuterol HCl (Xopenex) 0.63 mg IH Q2 PRN PRN Reason: Shortness of Breath Last Admin: 07/15/18 18:14 Dose: 0.63 mg Lisinopril (Zestril) 20 mg PO DAILY [facility] Last Admin: 07/16/18 10:17 Dose: 20 mg Metoprolol Tartrate (Lopressor) 50 mg PO BID [facility] Last Admin: 07/16/18 10:16 Dose: 50 mg Metoprolol Tartrate (Lopressor) 5 mg IVP Q6 PRN PRN Reason: Systolic Blood Pressure Pantoprazole Sodium (Protonix Ec Tab) 40 mg PO 0600 [facility] Last Admin: 07/16/18 05:00 Dose: 40 mg Sodium Chloride ([place] Nasal [place]) 0 ml NS DAILY PRN PRN Reason: Nasal congestion Vitamin B Complex/Vit C/Folic Acid (Nephro-Nicko) 1 tab PO 0800 [facility] Last Admin: 07/16/18 10:16 Dose: 1 tab - Labs Labs: 07/16/18 06:30 07/16/18 06:30 PT 12.3 SECONDS (9.4-12.5) 07/15/18 09:30 INR 1.09 07/15/18 09:30 APTT 37.0 Seconds (26.9-38.3) 07/15/18 09:30 - Constitutional Appears: Well, Non-toxic - Head Exam Head Exam: ATRAUMATIC, NORMAL INSPECTION, NORMOCEPHALIC - Eye Exam Eye Exam: EOMI, Normal appearance, PERRL Pupil Exam: NORMAL ACCOMODATION, PERRL - ENT Exam ENT Exam: Mucous Membranes Moist, Normal Exam - Neck Exam Neck Exam: Full ROM, Normal Inspection. absent: Lymphadenopathy - Respiratory Exam Respiratory Exam: Decreased Breath Sounds, Wheezes (improved compared to yeaterday). absent: Rales, Stridor - Cardiovascular Exam Cardiovascular Exam: REGULAR RHYTHM, +S1, +S2. absent: JVD, Rubs - GI/Abdominal Exam GI & Abdominal Exam: Soft, Normal Bowel Sounds. absent: Tenderness - Extremities Exam Extremities Exam: Full ROM, Normal Capillary Refill, Normal Inspection. absent: Joint Swelling, Pedal Edema, Tenderness - Back Exam Back Exam: NORMAL INSPECTION - Neurological Exam Neurological Exam: Alert, Awake, CN II-XII Intact, Normal Gait, Oriented x3 - Psychiatric Exam Psychiatric exam: Normal Affect, Normal Mood - Skin Skin Exam: Dry, Intact, Normal Color, Warm Assessment and Plan - Assessment and Plan (Free Text) Assessment: 58 y/o male with PMH of HTN, DM2, HLD, CAD s/p PCI with 2 BMS (2013), nasopharyngeal cancer s/p chemo/radiation presents to the ED with progressive b/l LE edema x2 days and dry cough x1 day. Admitted to tele for work up Plan: Cough/ LE edema: -likely CAP with CHF component -EKG: NSR @96 with RBBB. unchanged from prior -CXR: b/l patchy infrahilar infiltrates -trop negative x3 -BNP 1590 on admission -continue rocephin, zithromax -blood cx negative to date -continue lasix 40 bid -daily weight, monitor I/O -procal negative -symptomatic therapy: robitussun/codeine, xopenex, O2 NC -LE U/S: negative for DVT -cardiology consulted Dr Palomino CAD s/p PCI with BMS: -Echo done. read pending -continue home med lisinopril 20 qd, metoprolol 50 mg bid -continue asa HTN: -patient hypertensive on admission 200/104 -hydralazine increased from 25 to 50 tid -continue amlodipine 10 -continue metoprolol 5 mg prn -continue catapres 0.1 po q4 prn for SBP>170 DBP>95 JORDAN on CKD: -BUN/Cr 56/2.4 (baseline 41/1.8) -in the setting of diuretic use -hepertensive chronic kidney disease -continue home meds nephrovite, ergocalciferol -f/u phos, PTH, Vit D level -f/u kidney US -nephro following Dr Anderson Anemia: -likely anemia of chronic disease -H/H 11.1/32.7 (at baseline) -continue home iron DM2: -ISS-L -A1C 6 -accuchecks -hold home med januvia HLD: -lipid profile: Chol 207, HDL 64 -continue home med lipitor h/o nasopharyngeal cancer: -patient in remission -PET scan done last year, negative h/o depression: -continue home med lexapro 20 qd -TSH normal, T4 low normal PPX: -DVT: lovenx, SCD -GI: protonix -HHD, dysphagia modified -PT: home d/c Case reviewed and plan discussed with attending Dr Kimberly Dukes, DO <Jayden Harris - Last Filed: 07/17/18 14:30> Objective - Vital Signs/Intake and Output Vital Signs (last 24 hours): Temp Pulse Resp BP Pulse Ox 98.3 F 67 18 134/70 95 07/17/18 12:00 07/17/18 12:00 07/17/18 12:00 07/17/18 12:00 07/17/18 05:55 Intake and Output: 07/17/18 07/17/18 06:59 18:59 Intake Total 900 Output Total 740 Balance 160 - Labs Labs: 07/17/18 06:30 07/17/18 06:30 PT 12.3 SECONDS (9.4-12.5) 07/15/18 09:30 INR 1.09 07/15/18 09:30 APTT 37.0 Seconds (26.9-38.3) 07/15/18 09:30 Attending/Attestation - Attestation I have personally seen and examined this patient.: Yes I have fully participated in the care of the patient.: Yes I have reviewed all pertinent clinical information, including history, physical exam and plan: Yes Notes (Text): 07/17/18 14:27 Attending note; Patient seen and examined with resident. Cough is improving. Denies any fevers. Lower extremity swelling is improving. Denies any nausea, vomiting. Denies any urinary, bowel symptoms. Patient is a 58-year-old male male with PMH of HTN, DM2, HLD, CAD s/p PCI with 2 stents (2013), nasopharyngeal cancer s/p chemo/radiation presents to the ED with progressive bilateral lower extremity edema x2 days and dry cough x1 day. 1. Cough and shortness of breath; chest x-ray showed bilateral infiltrates. Patient is started on IV Rocephin and Zithromax. 2. Severe cough; started on Robitussin with codeine. 3. Hypertension; uncontrolled. Started on metoprolol, hydralazine and lisinopril. Doses adjusted. Continue clonidine as needed. 4. Bilateral lower extremity edema; started on IV Lasix. Bilateral lower extremity Doppler is negative for DVT. 5. Coronary artery disease and stent placement; continue aspirin. Case discussed with risk adjustment specialist in detail. Echocardiogram showed ejection fraction of 49% and moderate TR and moderate pu lmonary hypertension. needs close follow-up with cardiology as outpatient. 6. Diabetes; continue regular insulin sliding scale. Placed on carbohydrate consistent diet. 7. Nasopharyngeal cancer; in remission. 8. Acute on chronic kidney disease; monitor creatinine closely. Baseline creatinine is 2.5-3. Nephrology evaluation appreciated . Renal ultrasound ordered. Creatinine is increasing due to aggressive diuresis. Upon discharge the patient will follow up with PMD Dr. Randle. Diagnosis, treatment plan discussed with patient in detail.
--- NOTE | 2018-07-16 16:37 | CARD ---
APPROVED REPORT Date of service: 07/16/2018 EKG Measurement Heart [id number] <Conclusion> Sinus rhythm with 1st degree AV block Right bundle branch block Abnormal ECG
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
--- NOTE | 2018-07-16 18:45 | CARD ---
APPROVED REPORT Date of service: 07/16/2018 EXAM: Two-dimensional and M-mode echocardiogram with Doppler and color Doppler. INDICATION Cardiac Disease: CAD 2D DIMENSIONS Left Atrium (2D)4.3 (1.6-4.0cm)IVSd1.4 (0.7-1.1cm) LVDd4.9 (3.9-5.9cm)PWd1.3 (0.7-1.1cm) LVDs3.7 (2.5-4.0cm)FS (%) 24.9 % LVEF (%)49.3 (>50%) M-Mode DIMENSIONS Aortic Root3.00 (2.2-3.7cm)Aortic Cusp Exc.1.80 (1.5-2.0cm) Aortic Valve AoV Peak [id number]/Nancy Peak GR.6mmHg Mitral Valve E/A ratio0.0 TDI E/Lateral E'0.0E/Medial E'0.0 Tricuspid Valve TR Peak [id number] Peak Gr.59mmHg [id number] LEFT VENTRICLE The left ventricle is normal size. There is mild concentric left ventricular hypertrophy. Left ventricle ejection fraction is borderline. There is normal LV segmental wall motion. Transmitral Doppler flow pattern is abnormal. No left ventricle thrombus noted on this study. RIGHT VENTRICLE The right ventricle is normal size. There is normal right ventricular wall thickness. The right ventricular systolic function is normal. ATRIA The left atrium is borderline dilated. The right atrium size is normal. AORTIC VALVE The aortic valve is normal in structure. No aortic regurgitation is present. There is no aortic valvular stenosis. MITRAL VALVE The mitral valve is normal in structure. Mitral regurgitation is mild. There is no mitral valve stenosis. TRICUSPID VALVE There is moderate tricuspid regurgitation. There is moderate to severe pulmonary hypertension. PULMONIC VALVE There is no pulmonic valvular regurgitation. GREAT VESSELS The aortic root is normal in size. The IVC collapses <50% with inspiration. PERICARDIAL EFFUSION There is a trace pericardial effusion. <Conclusion> The left ventricle is normal size. There is mild concentric left ventricular hypertrophy. Left ventricle ejection fraction is borderline. There is normal LV segmental wall motion. Mitral regurgitation is mild. There is moderate tricuspid regurgitation. There is moderate to severe pulmonary hypertension.
[2018-07-16 20:56] LABS: URINE CREATININE 42.7 mg/dL
[2018-07-16 20:57] LABS: URINE 24 HOUR TOTAL PROTEIN 3601 mg/24HR (42-225); URINE TOTAL VOLUME 1300 mL (800-1400)
[2018-07-16] MEDS: guaiFENesin-Codeine 100-10mg/5ml Syrup (5 ml) UD PO PRN (21:13)
--- NOTE | 2018-07-16 21:49 | PN ---
DATE: 07/16/2018 SUBJECTIVE: The patient is seen lying in bed. is at bedside. He complains of some shortness of breath. He reports some cough. He also complains of edema. PHYSICAL EXAMINATION: GENERAL: Middle-aged male sitting in chair. VITAL SIGNS: Blood pressure 130/68, heart rate 70, respiratory rate 20, and temperature 98.2. HEENT: Normocephalic and atraumatic. Positive pallor. NECK: Supple. No JVD. LUNGS: Bilateral equal air entry, bilateral equal expansion. CARDIAC: S1 and S2. Regular rate and rhythm. No murmur. No rub. ABDOMEN: Soft, nondistended, and nontender. Bowel sounds present. EXTREMITIES: 2+ pitting edema of the lower extremities. INTAKE AND OUTPUT: 360/1200. LABORATORY DATA: WBC 8.9, hemoglobin 10, hematocrit 31, and platelets 257. Sodium 143, potassium 4.4, chloride 116, CO2 of 21, BUN 64, creatinine 2.7, glucose 101, calcium 8.6, phosphorus 4.6, magnesium 1.8, and CPK 370. Urinalysis, yellow, cloudy, pH of 6, specific gravity 1.020, protein 100, blood small, leukocyte esterase negative, and RBCs 5-10. Blood cultures, no growth. CURRENT MEDICATIONS: Hydralazine 50 t.i.d. started today, aspirin 81, clonidine 0.1 every 4 hours p.r.n., Drisdol, Feosol, insulin, Lasix 40 IV daily, Lexapro, Lipitor 40, Lopressor 50 b.i.d., Lovenox, amlodipine 10, Protonix, Rocephin, Zestril 20, and azithromycin. ASSESSMENT: 1. Acute kidney injury superimposed on chronic kidney disease stage III. 2. Decompensated congestive heart failure. 3. History of noninsulin-dependent diabetes mellitus. 4. History of hypertension. 5. History of diabetic retinopathy. 6. Coronary artery disease, history of percutaneous transluminal coronary angioplasty and stent. 7. Diabetic nephropathy. 8. Anemia of chronic kidney disease. PLAN: 1. Continue antibiotics as per ID recommendations, dose for creatinine clearance about 30 mL/minute. 2. Continue to diurese. 3. Avoid nephrotoxins. 4. Monitor urine output. 5. Monitor daily labs. Irais Corona MD [facility] # [id number]
[2018-07-16 22:30] LABS: BARBITURATES, UR NEGATIVE (NEGATIVE); BENZODIAZEPINES, UR NEGATIVE (NEGATIVE); OPIATES, UR POSITIVE (NEGATIVE); PHENCYCLIDINE, UR NEGATIVE (NEGATIVE)
[2018-07-17] MEDS: Pantoprazole 40 mg EC Tab PO SCH (05:28)
[2018-07-17 05:57] VITALS: O2SAT 95
[2018-07-17 06:58] LABS: BASO # 0.02 K/mm3 (0.0-2.0); BASO % 0.2 % (0.0-3.0); EOS # 0.4 (0.0-0.7); EOS % 4.2 % (1.5-5.0); HEMOGLOBIN 10.9 g/dL (14.0-18.0); LYMPH # 1.2 (1.2-3.4); LYMPH % 12.1 % (22.0-35.0); MEAN CELL VOLUME 89.7 fl (80.0-105.0); MEAN CORPUSCULAR HEMOGLOBIN 29.5 pg (25.0-35.0); MEAN CORPUSCULAR HGB CONC 32.8 g/dl (31.0-37.0); MEAN PLATELET VOLUME 10.4 fl (7.0-11.0); MONO # 0.9 (0.1-0.6); MONO % 9.2 % (1.0-6.0); RBC 3.7 10^6/uL (3.5-6.1); RED CELL DISTRIBUTION WIDTH 14.9 % (11.5-14.5); WHITE BLOOD COUNT 9.8 10^3/uL (4.5-11.0)
[2018-07-17] MEDS: Levalbuterol 0.63 MG/3 ML Inhal Soln UD IH SCH (07:07)
[2018-07-17 07:14] LABS: ALB/GLOB RATIO 1.1 (1.1-1.8); ALBUMIN 3.6 g/dL (3.0-4.8); CALCIUM 8.6 mg/dL (8.4-10.5)
[2018-07-17] MEDS: Insulin Reg-LOW-Coverage SC SCH ×2 (07:34→11:28)
[2018-07-17] MEDS: Enoxaparin 30 mg Syringe SC SCH (09:25)
[2018-07-17] MEDS: Multivitamin Vitamin B Complex (Nephro-Vite) Tab PO SCH (09:25)
[2018-07-17] MEDS ORDERED: Cefpodoxime (Vantin) 200 mg Tab PO SCH (10:00)
[2018-07-17 12:20] VITALS: BP 134/70; PULSE 67; RESP 18; TEMP 98.3
--- NOTE | 2018-07-17 12:43 | US ---
Date of service: 07/17/2018 PROCEDURE: Ultrasound of the Kidneys HISTORY: CKD COMPARISON: Comparison made with prior renal ultrasound dated 11/19/2016. Comparison also made with prior CT scan abdomen pelvis 11/10/2017. TECHNIQUE: Sonogram of the kidneys. FINDINGS: RIGHT KIDNEY: Measures: 10.5 x 5.2 x 6.1 cm. Normal in size and contour. Slight increased parenchymal echotexture suggesting underlying mild medical renal disease. Clinical correlation recommended. No stone, solid mass lesion or hydronephrosis visualized. LEFT KIDNEY: Measures: 10.0 x 5.1 x 5.5 cm. Normal in size and contour. Slight increased parenchymal echotexture suggesting underlying mild medical renal disease. Clinical correlation recommended. No stone, solid mass lesion or hydronephrosis visualized. OTHER FINDINGS: None. IMPRESSION: Findings suggest underlying mild medical renal disease. No evidence of hydronephrosis. No shadowing calculi.
--- NOTE | 2018-07-17 13:46 | RAD ---
Date of service: 07/17/2018 HISTORY: SOB COMPARISON: Comparison chest 07/16/2019 TECHNIQUE: 1 view obtained. FINDINGS: LUNGS: Mild bibasilar atelectasis with suspected small bilateral effusions. The central pulmonary vasculature is slightly increased; rule out mild chronic compensated pulmonary venous congestion. PLEURA: As above. No pneumothorax apparent. CARDIOVASCULAR: Cardiomegaly. Minimal aortic atherosclerotic calcification present. OSSEOUS STRUCTURES: No significant abnormalities. VISUALIZED UPPER ABDOMEN: Normal. OTHER FINDINGS: None. IMPRESSION: Mild bibasilar atelectasis with suspected small bilateral effusions. The central pulmonary vasculature is slightly increased; rule out mild chronic compensated pulmonary venous congestion.
--- NOTE | 2018-07-17 13:47 | CP.PCM.DIS ---
<Yehuda Dukes - Last Filed: 07/17/18 13:24> Provider - Provider Date of Admission: 07/15/18 11:33 Attending physician: Jayden Harris MD Consults: 07/15/18 13:37 Nephrology Consult Routine Comment: Consulting Provider: Irais Corona Consulting Physician: Irais Corona Reason for Consult: JORDAN on CKD 07/15/18 14:10 Cardiology Consult Routine Comment: Consulting Provider: Gilma Palomino Consulting Physician: Gilma Palomino Reason for Consult: CAD, s/p stents, leg swelling 07/15/18 14:47 Social Work Referral Routine Comment: d/c plan Physician Instructions: Reason For Exam: assess 07/15/18 15:33 Inpatient SURGICAL CLINICAL REVIEWER Core Measures Referral Routine Comment: edema/pneumonia Physician Instructions: Reason For Exam: assess Transition In Care/Readmission Reduction Routine Comment: edema/pneumonia Physician Instructions: Reason For Exam: assess Time Spent in preparation of Discharge (in minutes): 50 Hospital Course - Lab Results Lab Results: Micro Results 07/15/18 11:00 Blood Blood Culture - Preliminary NO GROWTH AFTER 24 HOURS 07/15/18 10:30 Blood Blood Culture - Preliminary NO GROWTH AFTER 24 HOURS Most Recent Lab Values WBC 9.8 10^3/uL (4.5-11.0) 07/17/18 06:30 RBC 3.70 10^6/uL (3.5-6.1) 07/17/18 06:30 Hgb 10.9 g/dL (14.0-18.0) L 07/17/18 06:30 Hct 33.2 % (42.0-52.0) L 07/17/18 06:30 MCV 89.7 fl (80.0-105.0) 07/17/18 06:30 MCH 29.5 pg (25.0-35.0) 07/17/18 06:30 MCHC 32.8 g/dl (31.0-37.0) 07/17/18 06:30 RDW 14.9 % (11.5-14.5) H 07/17/18 06:30 Plt Count 261 10^3/uL (120.0-450.0) 07/17/18 06:30 MPV 10.4 fl (7.0-11.0) 07/17/18 06:30 Neut % (Auto) 74.3 % (50.0-68.0) H 07/17/18 06:30 Lymph % (Auto) 12.1 % (22.0-35.0) L 07/17/18 06:30 [place] % (Auto) 9.2 % (1.0-6.0) H 07/17/18 06:30 Eos % (Auto) 4.2 % (1.5-5.0) 07/17/18 06:30 Baso % (Auto) 0.2 % (0.0-3.0) 07/17/18 06:30 Lymph # (Auto) 1.2 (1.2-3.4) 07/17/18 06:30 [place] # (Auto) 0.9 (0.1-0.6) H 07/17/18 06:30 Eos # (Auto) 0.4 (0.0-0.7) 07/17/18 06:30 Baso # (Auto) 0.02 K/mm3 (0.0-2.0) 07/17/18 06:30 Absolute Neuts (auto) 7.26 (1.4-6.5) H 07/17/18 06:30 Neutrophils % (Manual) 74 % (50.0-70.0) H 07/16/18 06:30 Lymphocytes % (Manual) 9 % (22.0-35.0) L 07/16/18 06:30 Monocytes % (Manual) 16 % (1.0-6.0) H 07/16/18 06:30 Eosinophils % (Manual) 1 % (0.0-3.0) 07/16/18 06:30 PT 12.3 SECONDS (9.4-12.5) 07/15/18 09:30 INR 1.09 07/15/18 09:30 APTT 37.0 Seconds (26.9-38.3) 07/15/18 09:30 Sodium 142 mmol/L (132-148) 07/17/18 06:30 Potassium 4.5 mmol/L (3.6-5.0) 07/17/18 06:30 Chloride 114 mmol/L (98-107) H 07/17/18 06:30 Carbon Dioxide 20 mmol/L (21-33) L 07/17/18 06:30 Anion Gap 14 (10-20) 07/17/18 06:30 BUN 76 mg/dL (7-21) H 07/17/18 06:30 Creatinine 3.1 mg/dl (0.8-1.5) H 07/17/18 06:30 Est GFR ( Amer) 25 07/17/18 06:30 Est GFR (Non-Af Amer) 07/17/18 06:30 POC Glucose (mg/dL) 149 mg/dL (65-110) H 07/17/18 11:24 Random Glucose 96 mg/dL (70-110) 07/17/18 06:30 Hemoglobin A1c 6.0 % (4.2-6.5) 07/15/18 09:30 Calcium 8.6 mg/dL (8.4-10.5) 07/17/18 06:30 Phosphorus 5.1 mg/dL (2.5-4.5) H 07/17/18 06:30 Magnesium 1.9 mg/dL (1.7-2.2) 07/17/18 06:30 Total Bilirubin 0.2 mg/dL (0.2-1.3) 07/17/18 06:30 AST 44 U/L (17-59) 07/17/18 06:30 ALT 28 U/L (7-56) 07/17/18 06:30 Alkaline Phosphatase 69 U/L (38-126) 07/17/18 06:30 Lactate Dehydrogenase 680 U/L (333-699) 07/16/18 00:20 Total Creatine Kinase 370 U/L (35-230) H 07/16/18 00:20 CK-MB (CK-2) 7.3 ng/mL (0.0-3.6) H 07/16/18 00:20 CK-MB (CK-2) % 2.0 % (2.5-3.0) L 07/16/18 00:20 Troponin I 0.09 ng/mL D 07/16/18 00:20 NT-Pro-B Natriuret Pep 1590 pg/mL (0-450) H 07/15/18 10:00 Total Protein 6.9 g/dL (5.8-8.3) 07/17/18 06:30 Albumin 3.6 g/dL (3.0-4.8) 07/17/18 06:30 Globulin 3.3 gm/dL 07/17/18 06:30 Albumin/Globulin Ratio 1.1 (1.1-1.8) 07/17/18 06:30 Triglycerides 100 mg/dL (35-160) 07/15/18 09:30 Cholesterol 207 mg/dL (130-200) H 07/15/18 09:30 LDL Cholesterol Direct 100 mg/dL (0-129) 07/15/18 09:30 HDL Cholesterol 64 mg/dL (29-60) H 07/15/18 09:30 25-OH Vitamin D Total 28.0 NG/ML (30.0-100.0) L 07/17/18 06:30 Procalcitonin 0.38 NG/ML (0.19-0.49) 07/15/18 18:45 Free T4 0.84 ng/dL (0.78-2.19) 07/15/18 11:00 TSH 3rd Generation 3.72 mIU/mL (0.46-4.68) 07/15/18 11:00 Urine Color Yellow (YELLOW) 07/15/18 15:01 Urine Appearance Cloudy (CLEAR) 07/15/18 15:01 Urine pH 6.0 (4.7-8.0) 07/15/18 15:01 Ur Specific Embudo 1.020 (1.005-1.035) 07/15/18 15:01 Urine Protein 100 mg/dL (<30 mg/dL) H 07/15/18 15:01 Urine Glucose (UA) Negative mg/dL (NEGATIVE) 07/15/18 15:01 Urine Ketones Negative mg/dL (NEGATIVE) 07/15/18 15:01 Urine Blood Small (NEGATIVE) H 07/15/18 15:01 Urine Nitrate Negative (NEGATIVE) 07/15/18 15:01 Urine Bilirubin Negative (NEGATIVE) 07/15/18 15:01 Urine Urobilinogen 0.2 E.U./dL (<1 E.U./dL) 07/15/18 15:01 Ur Leukocyte Esterase Negative Aura/uL (NEGATIVE) 07/15/18 15:01 Urine RBC 5 - 10 /hpf (0-2) H 07/15/18 15:01 Urine WBC None /hpf (0-6) 07/15/18 15:01 Urine Collection Time 24 HOURS 07/16/18 20:28 Urine Total Volume 1300 mL (800-1400) 07/16/18 20:28 Creatinine Clearance 14.0 ml/min (80-120) L 07/16/18 20:28 Ur Protein 24 Hr Calc 3601 mg/24HR (42-225) H 07/16/18 20:28 Urine Opiates Screen Positive (NEGATIVE) H 07/16/18 20:39 Urine Methadone Screen Negative (NEGATIVE) 07/16/18 20:39 Ur Barbiturates Screen Negative (NEGATIVE) 07/16/18 20:39 Ur Phencyclidine Scrn Negative (NEGATIVE) 07/16/18 20:39 Ur Amphetamines Screen Negative (NEGATIVE) 07/16/18 20:39 U Benzodiazepines Scrn Negative (NEGATIVE) 07/16/18 20:39 U Oth Cocaine Metabols Negative (NEGATIVE) 07/16/18 20:39 U Cannabinoids Screen Negative (NEGATIVE) 07/16/18 20:39 - Hospital Course Hospital Course: 58 y/o male with PMH of HTN, DM2, HLD, CAD s/p PCI with 2 stents (2013), nasopharyngeal cancer s/p chemo/radiation presented to the ED with progressive b/l LE edema x2 days and dry cough x1 day. BNP 1590, CXR b/l patchy infrahilar infiltrates, EKG: NSR @96 with RBBB. unchanged from prior, trop negative x1. Patient admitted for PNA/ new onset CHF. Started IV abx rocephin, zithromax, lasix 40 bid, robitussun/codeine, xopenex, O2 NC, daily weight, monitor I/O. LE U/S: negative for DVT. Patient was followed by cardiaology during hospital stay. He has h/o CAD s/p PCI with BMS, home med lisinopril 20 qd, metoprolol 50 mg bid continued. Patient noted to ne hypertensive on admission hydralazine, amlodipine, metoprolol, catapres prn given. Patient has JORDAN on CKD with BUN/Cr 56/2.4 (baseline 41/1.8) in the setting of diuretic use. Home meds nephrovite, ergocalciferol continued, kidney US suggestive of mild renal disease with no sly dence of hydronephrosis/calculi. Patient was followed by nephrology. Patient likely has anemia of chronic disease with H/H 11.1/32.7 (at baseline) home iron continued. Patient has DM2, ISS-L and accuchecks initiated. Patient has HLD with lipid profile Chol 207, HDL 64 home med lipitor continued. Patient has h/o nasopharyngeal cancer he is currently in remission. PET scan done last year with negative results. He has h/o depression, home med lexapro continued. TSH normal, T4 low normal. Patient was followed by PT during hospital stay.Today, patient is hemodynamically stble, asymptomatic, afebrile, clinically optimized for home discharge today. Additional discharge instructions as below. Discharge Exam - Head Exam Head Exam: ATRAUMATIC, NORMAL INSPECTION, NORMOCEPHALIC - Eye Exam Eye Exam: EOMI, Normal appearance, PERRL Pupil Exam: NORMAL ACCOMODATION, PERRL - ENT Exam ENT Exam: Mucous Membranes Moist, Normal Exam - Neck Exam Neck exam: Normal Inspection - Respiratory Exam Respiratory Exam: Clear to PA & Lateral, NORMAL BREATHING PATTERN - Cardiovascular Exam Cardiovascular Exam: REGULAR RHYTHM, JVD, +S1, +S2 - GI/Abdominal Exam GI & Abdominal Exam: Normal Bowel Sounds - Extremities Exam Extremities exam: normal capillary refill, pedal pulses present - Back Exam Back exam: FULL ROM - Neurological Exam Neurological exam: Alert, CN II-XII Intact, Normal Gait, Oriented x3, Reflexes Normal - Psychiatric Exam Psychiatric exam: Normal Affect, Normal Mood - Skin Skin Exam: Dry, Intact, Normal Color, Warm Discharge Plan - Discharge Medications Prescriptions: amLODIPine [Norvasc] 10 mg PO DAILY #14 tab Atorvastatin [Lipitor] 40 mg PO DIN #14 tab Carvedilol [Coreg] 25 mg PO BID #28 tab Cefpodoxime [Vantin] 200 mg PO DAILY #7 tab Doxycycline Hyclate 100 mg PO BID #14 cap Ergocalciferol [Drisdol 50,000 Intl Units Cap] 1 cap PO Q7D #4 cap Furosemide [Lasix] 40 mg PO DAILY #14 tab hydrALAZINE [Apresoline] 50 mg PO TID #42 tab Isosorbide Mononitrate ER [Imdur ER] 30 mg PO DAILY #14 tab Lisinopril [Zestril] 20 mg PO DAILY #14 tab - Follow Up Plan Condition: FAIR Disposition: HOME/ ROUTINE Instructions: Pneumonia, Adult (DC), Kidney Disease Diet (For People Not on Dialysis) Additional Instructions: Follow up with PMD Dr Berry in 3-5 days. Take medications as prescribed. You are given Lasix 40 mg 1 tablet daily for 14 days. Please follow up with your primary care doctor in 1 week to determine if you need adjustment in your Lasix dose. Take antibiotics: Doxycycline and Vantin for 7 days. Follow up with Configuration Management Analyst in 1 week. Return to ER for any new or worsening of symptoms. Referrals: Ko Berry MD [Family Provider] - <Jayden Harris - Last Filed: 07/17/18 17:15> Provider - Provider Date of Admission: 07/15/18 11:33 Attending physician: Jayden Harris MD Consults: 07/15/18 13:37 Nephrology Consult Routine Comment: Consulting Provider: Irais Corona Consulting Physician: Iaris Corona Reason for Consult: JORDAN on CKD 07/15/18 14:10 Cardiology Consult Routine Comment: Consulting Provider: Gilma Palomino Consulting Physician: Gilma Palomino Reason for Consult: CAD, s/p stents, leg swelling 07/15/18 14:47 Social Work Referral Routine Comment: d/c plan Physician Instructions: Reason For Exam: assess 07/15/18 15:33 Inpatient SURGICAL CLINICAL REVIEWER Core Measures Referral Routine Comment: edema/pneumonia Physician Instructions: Reason For Exam: assess Transition In Care/Readmission Reduction Routine Comment: edema/pneumonia Physician Instructions: Reason For Exam: assess Hospital Course - Lab Results Lab Results: Micro Results 07/15/18 11:00 Blood Blood Culture - Preliminary NO GROWTH AFTER 48 HOURS 07/15/18 10:30 Blood Blood Culture - Preliminary NO GROWTH AFTER 48 HOURS Most Recent Lab Values WBC 9.8 10^3/uL (4.5-11.0) 07/17/18 06:30 RBC 3.70 10^6/uL (3.5-6.1) 07/17/18 06:30 Hgb 10.9 g/dL (14.0-18.0) L 07/17/18 06:30 Hct 33.2 % (42.0-52.0) L 07/17/18 06:30 MCV 89.7 fl (80.0-105.0) 07/17/18 06:30 MCH 29.5 pg (25.0-35.0) 07/17/18 06:30 MCHC 32.8 g/dl (31.0-37.0) 07/17/18 06:30 RDW 14.9 % (11.5-14.5) H 07/17/18 06:30 Plt Count 261 10^3/uL (120.0-450.0) 07/17/18 06:30 MPV 10.4 fl (7.0-11.0) 07/17/18 06:30 Neut % (Auto) 74.3 % (50.0-68.0) H 07/17/18 06:30 Lymph % (Auto) 12.1 % (22.0-35.0) L 07/17/18 06:30 [place] % (Auto) 9.2 % (1.0-6.0) H 07/17/18 06:30 Eos % (Auto) 4.2 % (1.5-5.0) 07/17/18 06:30 Baso % (Auto) 0.2 % (0.0-3.0) 07/17/18 06:30 Lymph # (Auto) 1.2 (1.2-3.4) 07/17/18 06:30 [place] # (Auto) 0.9 (0.1-0.6) H 07/17/18 06:30 Eos # (Auto) 0.4 (0.0-0.7) 07/17/18 06:30 Baso # (Auto) 0.02 K/mm3 (0.0-2.0) 07/17/18 06:30 Absolute Neuts (auto) 7.26 (1.4-6.5) H 07/17/18 06:30 Neutrophils % (Manual) 74 % (50.0-70.0) H 07/16/18 06:30 Lymphocytes % (Manual) 9 % (22.0-35.0) L 07/16/18 06:30 Monocytes % (Manual) 16 % (1.0-6.0) H 07/16/18 06:30 Eosinophils % (Manual) 1 % (0.0-3.0) 07/16/18 06:30 PT 12.3 SECONDS (9.4-12.5) 07/15/18 09:30 INR 1.09 07/15/18 09:30 APTT 37.0 Seconds (26.9-38.3) 07/15/18 09:30 Sodium 142 mmol/L (132-148) 07/17/18 06:30 Potassium 4.5 mmol/L (3.6-5.0) 07/17/18 06:30 Chloride 114 mmol/L (98-107) H 07/17/18 06:30 Carbon Dioxide 20 mmol/L (21-33) L 07/17/18 06:30 Anion Gap 14 (10-20) 07/17/18 06:30 BUN 76 mg/dL (7-21) H 07/17/18 06:30 Creatinine 3.1 mg/dl (0.8-1.5) H 07/17/18 06:30 Est GFR ( Amer) 07/17/18 06:30 Est GFR (Non-Af Amer) 07/17/18 06:30 POC Glucose (mg/dL) 149 mg/dL (65-110) H 07/17/18 11:24 Random Glucose 96 mg/dL (70-110) 07/17/18 06:30 Hemoglobin A1c 6.0 % (4.2-6.5) 07/15/18 09:30 Calcium 8.6 mg/dL (8.4-10.5) 07/17/18 06:30 Phosphorus 5.1 mg/dL (2.5-4.5) H 07/17/18 06:30 Magnesium 1.9 mg/dL (1.7-2.2) 07/17/18 06:30 Total Bilirubin 0.2 mg/dL (0.2-1.3) 07/17/18 06:30 AST 44 U/L (17-59) 07/17/18 06:30 ALT 28 U/L (7-56) 07/17/18 06:30 Alkaline Phosphatase 69 U/L (38-126) 07/17/18 06:30 Lactate Dehydrogenase 680 U/L (333-699) 07/16/18 00:20 Total Creatine Kinase 370 U/L (35-230) H 07/16/18 00:20 CK-MB (CK-2) 7.3 ng/mL (0.0-3.6) H 07/16/18 00:20 CK-MB (CK-2) % 2.0 % (2.5-3.0) L 07/16/18 00:20 Troponin I 0.09 ng/mL D 07/16/18 00:20 NT-Pro-B Natriuret Pep 1590 pg/mL (0-450) H 07/15/18 10:00 Total Protein 6.9 g/dL (5.8-8.3) 07/17/18 06:30 Albumin 3.6 g/dL (3.0-4.8) 07/17/18 06:30 Globulin 3.3 gm/dL 07/17/18 06:30 Albumin/Globulin Ratio 1.1 (1.1-1.8) 07/17/18 06:30 Triglycerides 100 mg/dL (35-160) 07/15/18 09:30 Cholesterol 207 mg/dL (130-200) H 07/15/18 09:30 LDL Cholesterol Direct 100 mg/dL (0-129) 07/15/18 09:30 HDL Cholesterol 64 mg/dL (29-60) H 07/15/18 09:30 25-OH Vitamin D Total 28.0 NG/ML (30.0-100.0) L 07/17/18 06:30 Procalcitonin 0.38 NG/ML (0.19-0.49) 07/15/18 18:45 Free T4 0.84 ng/dL (0.78-2.19) 07/15/18 11:00 TSH 3rd Generation 3.72 mIU/mL (0.46-4.68) 07/15/18 11:00 Urine Color Yellow (YELLOW) 07/15/18 15:01 Urine Appearance Cloudy (CLEAR) 07/15/18 15:01 Urine pH 6.0 (4.7-8.0) 07/15/18 15:01 Ur Specific Embudo 1.020 (1.005-1.035) 07/15/18 15:01 Urine Protein 100 mg/dL (<30 mg/dL) H 07/15/18 15:01 Urine Glucose (UA) Negative mg/dL (NEGATIVE) 07/15/18 15:01 Urine Ketones Negative mg/dL (NEGATIVE) 07/15/18 15:01 Urine Blood Small (NEGATIVE) H 07/15/18 15:01 Urine Nitrate Negative (NEGATIVE) 07/15/18 15:01 Urine Bilirubin Negative (NEGATIVE) 07/15/18 15:01 Urine Urobilinogen 0.2 E.U./dL (<1 E.U./dL) 07/15/18 15:01 Ur Leukocyte Esterase Negative Aura/uL (NEGATIVE) 07/15/18 15:01 Urine RBC 5 - 10 /hpf (0-2) H 07/15/18 15:01 Urine WBC None /hpf (0-6) 07/15/18 15:01 Urine Collection Time 24 HOURS 07/16/18 20:28 Urine Total Volume 1300 mL (800-1400) 07/16/18 20:28 Creatinine Clearance 14.0 ml/min (80-120) L 07/16/18 20:28 Ur Protein 24 Hr Calc 3601 mg/24HR (42-225) H 07/16/18 20:28 Urine Opiates Screen Positive (NEGATIVE) H 07/16/18 20:39 Urine Methadone Screen Negative (NEGATIVE) 07/16/18 20:39 Ur Barbiturates Screen Negative (NEGATIVE) 07/16/18 20:39 Ur Phencyclidine Scrn Negative (NEGATIVE) 07/16/18 20:39 Ur Amphetamines Screen Negative (NEGATIVE) 07/16/18 20:39 U Benzodiazepines Scrn Negative (NEGATIVE) 07/16/18 20:39 U Oth Cocaine Metabols Negative (NEGATIVE) 07/16/18 20:39 U Cannabinoids Screen Negative (NEGATIVE) 07/16/18 20:39 Attending/Attestation - Attestation I have personally seen and examined this patient.: Yes I have fully participated in the care of the patient.: Yes I have reviewed all pertinent clinical information, including history, physical exam and plan: Yes Notes (Text): Attending note; Patient seen and examined with resident. denies any cough. Loweer extremity swelling improved. Denies any urinary, bowel symptoms. Ambulating without any difficulty. Patient is a 58-year-old male male with PMH of HTN, DM2, HLD, CAD s/p PCI with 2 stents (2013), nasopharyngeal cancer s/p chemo/radiation presents to the ED with progressive bilateral lower extremity edema x2 days and dry cough x1 day. 1. Cough and shortness of breath; resolved .chest x-ray showed bilateral infiltrates. Treated with IV Rocephin and Zithromax. Will be discharged home with Vantin and doxycycline. 2. Severe cough; treated with Robitussin with codeine. 3. Hypertension; uncontrolled. metoprolol, hydralazine, Lasix and Imdur and lisinopril. Cardiology evaluation appreciated. 4. Bilateral lower extremity edema; treated with IV Lasix. Bilateral lower extremity Doppler is negative for DVT. Edema resolved. Continue p.o. Lasix. 5. Coronary artery disease and stent placement; continue aspirin. Case discussed with heating element repairer in detail. Echocardiogram showed ejection fraction of 49% and moderate TR and moderate pulmonary hypertension. needs close follow-up with cardiology as outpatient. 6. Diabetes; continue regular insulin sliding scale. Placed on carbohydrate consistent diet. 7. Nasopharyngeal cancer; in remission. 8. Acute on chronic kidney disease; monitor creatinine closely. Baseline creatinine is 2.5-3. Nephrology evaluation appreciated . Renal ultrasound ordered. Creatinine is increasing due to aggressive diuresis. Renal ultrasound showed medical renal disease . Patient will be discharged home today. Follow-up with cardiology Dr. Batista. Follow-up with nephrology Dr. Corona. Upon discharge the patient will follow up with PMD Dr. Randle. Diagnosis, treatment plan discussed with patient in detail.
--- NOTE | 2018-07-18 12:26 | PN ---
DATE: 07/17/2018 SUBJECTIVE: The patient is seen lying in bed. He complains of some shortness of breath. Denies any chest tightness. Denies any abdominal pain. PHYSICAL EXAMINATION: GENERAL: Middle-aged male lying in bed. VITAL SIGNS: Blood pressure 134/70, heart rate 67, respiratory rate 18, temperature 98.3. HEENT: Normocephalic, atraumatic, positive pallor. NECK: Supple, no JVD. LUNGS: Bilateral equal air entry, bilateral rhonchi, decreased breath sounds at bases. CARDIAC: S1, S2, regular rate rhythm, no murmur, no rub. ABDOMEN: Obese, distended, soft, nontender, bowel sounds present. EXTREMITIES: 2+ pitting edema of the lower extremities. INTAKE AND OUTPUT: 1250/714. LABORATORY DATA: WBC 9.8, hemoglobin 10.9, hematocrit 33, platelets 261. Sodium 142, potassium 4.5, chloride 114, CO2 of 20, BUN 76, creatinine 3.1, glucose 96, calcium 8.6, phosphorus 5.1, magnesium 1.9, albumin 3.6, globulin 3.3. MEDICATIONS: Hydralazine 50 t.i.d., aspirin 81, Coreg 25 b.i.d., vitamin D once a week, Feosol, insulin, Imdur 30, Lasix 40 IV every 12 hours, Lexapro, Lipitor, Lopressor, Lovenox, amlodipine 10, Protonix, Vantin 10, Xopenex, Zestril 20, Zithromax 250. ASSESSMENT: 1. Acute kidney injury superimposed on chronic kidney disease stage 3/4. 2. Coronary artery disease, history of percutaneous transluminal coronary angioplasty and stent. 3. [id number] pulmonary hypertension. 4. ? Pneumonia. 5. Anemia of chronic kidney disease. 6. Non-insulin dependent diabetes mellitus. 7. Hypertension. 8. History of nasopharyngeal carcinoma. PLAN: 1. Agree with p.o. Lasix. 2. Needs outpatient followup. 3. Avoid nephrotoxins. 4. Will likely need TOOTIE in the future. 5. Okay to discharge with close followup. Irais Corona MD
== END 2018-07-17 13:08 | disposition home or self-care (01) ==
LOC: ED 08:11 → ERH 11:33 → 2RNO 12:54
PROVIDERS: ADMIT Internal Medicine; ATTEND Internal Medicine
DX: J18.9 Pneumonia, unspecified organism (principal); I13.0 Hypertensive heart and chronic kidney disease with heart failure and stage 1 through stage 4 chronic kidney disease, or unspecified chronic kidney disease; I50.9 Heart failure, unspecified; N17.9 Acute kidney failure, unspecified; N18.4 Chronic kidney disease, stage 4 (severe); D63.1 Anemia in chronic kidney disease; E11.21 Type 2 diabetes mellitus with diabetic nephropathy; E11.22 Type 2 diabetes mellitus with diabetic chronic kidney disease; E11.319 Type 2 diabetes mellitus with unspecified diabetic retinopathy without macular edema; I25.10 Atherosclerotic heart disease of native coronary artery without angina pectoris; I27.20 Pulmonary hypertension, unspecified; E78.00 Pure hypercholesterolemia, unspecified; E78.5 Hyperlipidemia, unspecified; I45.10 Unspecified right bundle-branch block; F32.9 Major depressive disorder, single episode, unspecified; I25.2 Old myocardial infarction; Z85.818 Personal history of malignant neoplasm of other sites of lip, oral cavity, and pharynx; Z86.718 Personal history of other venous thrombosis and embolism; Z95.5 Presence of coronary angioplasty implant and graft; Z92.21 Personal history of antineoplastic chemotherapy; Z92.3 Personal history of irradiation; Z79.01 Long term (current) use of anticoagulants; Z79.84 Long term (current) use of oral hypoglycemic drugs; Z80.42 Family history of malignant neoplasm of prostate
CPT/HCPCS: 36415; 71045; 76770; 80053; 80061; 81001; 82306; 82550; 82553; 82575; 82948; 83036; 83615; 83735; 83880; 83970; 84100; 84145; 84156; 84439; 84443; 84484; 85025; 85610; 85730; 87040; 92526; 92610; 93005; 93306; 93970; 94640; 94760; 96365; 96374; 97116; 97161; 99285; G0378; G0480; G8978; G8979; G8980; G8996; G8997; J0456; J0694; J0696; J1650; J1940